=== PATIENT | male | born 1985 | race Hispanic/Latino ===

== ENCOUNTER 2017-06-03 15:11 | Inpatient (IN) | payer MEDICAID ==
--- NOTE | 2017-06-03 15:23 | ED PDOC ---
"Arrival/HPI - General Historian: Patient, EMS <Ketan Hsieh - Last Filed: 06/03/17 20:49> <Joaquina Solomon - Last Filed: 06/04/17 01:56> - General Time Seen by Provider: 06/03/17 15:14 - History of Present Illness Narrative History of Present Illness (Text): 06/03/17 15:22 31 y/o male, pmh including seizure/CVA, drug abuse and currently on subuxone, nkda, biba after the police call for the ambulance as the patient acting bizzare. Pt. went to visit his kids today and the kids didn't go to school, DYFS came to evalute the kid, PD was call, and found the patient at his kids house. DYFS and police found that the patient has bizzare behavior and told to come to the ER for psychiatric evaluation. Pt. stated that he did use the subuxone today, no nausea or vomiting, no homicidal or suicidal ideation, no auditory or visual hallucination, no change in vision, no medical or psychological complaints. (Ketan Hsieh) Past Medical History - Provider Review Nursing Documentation Reviewed: Yes - Infectious Disease Hx of Infectious Diseases: None - Tetanus Immunization Tetanus Immunization: Unknown - Past Medical History Past Medical History: No Previous - Cardiac Hx Cardiac Disorders: No - Pulmonary Hx Respiratory Disorders: No - Neurological Hx Neurological Disorder: Yes - HEENT Hx HEENT Disorder: No - Renal Hx Renal Disorder: No - Endocrine/Metabolic Hx Endocrine Disorders: No - Hematological/Oncological Hx Blood Disorders: No - Integumentary Hx Dermatological Disorder: No - Musculoskeletal/Rheumatological Hx Musculoskeletal Disorders: No - Gastrointestinal Hx Gastrointestinal Disorders: No - Genitourinary/Gynecological Hx Genitourinary Disorders: No - Psychiatric Hx Psychophysiologic Disorder: Yes Hx Substance Use: No - Past Surgical History Past Surgical History: Non-Contributing - Surgical History Hx Orthopedic Surgery: Yes (left hand) - Anesthesia Hx Anesthesia: Yes Hx Anesthesia Reactions: No Hx Malignant Hyperthermia: No - Suicidal Assessment Feels Threatened In Home Enviroment: No <Ketan Hsieh - Last Filed: 06/03/17 20:49> Family/Social History - Physician Review Nursing Documentation Reviewed: Yes Family/Social History: Unknown Family HX Smoking Status: Heavy Smoker > 10 Cigarettes Daily Hx Alcohol Use: No (quit 6 yrs ago) Hx Substance Use: No Hx Substance Use Treatment: No <Ketan Hsieh Q - Last Filed: 06/03/17 20:49> Allergies/Home Meds <Ketan Hsieh Q - Last Filed: 06/03/17 20:49> <Joaquina Solomon P - Last Filed: 06/04/17 01:56> Allergies/Adverse Reactions: Allergies No Known Allergies Allergy (Verified 06/03/17 15:43) Home Medications: Home Meds Medication Instructions Recorded Confirmed Alprazolam [Xanax] 2 mg PO QID 08/26/15 06/03/17 Buprenorphine HCl/Naloxone HCl 4 mg PO Q6 06/03/17 06/03/17 [Suboxone 4 mg-1 mg Sl Film] Review of Systems - Review of Systems Constitutional: absent: Fatigue, Fevers Eyes: absent: Vision Changes ENT: absent: Hearing Changes Respiratory: absent: SOB, Cough Cardiovascular: absent: Chest Pain Gastrointestinal: absent: Abdominal Pain, Nausea, Vomiting Musculoskeletal: absent: Arthralgias, Back Pain Skin: absent: Rash, Pruritis, Skin Lesions Neurological: absent: Headache, Dizziness Psychiatric: absent: Anxiety, Depression, Suicidal Ideation <Ketan Hsieh Q - Last Filed: 06/03/17 20:49> Physical Exam - Systems Exam Head: Present: Atraumatic, Normocephalic Pupils: Present: PERRL Extroacular Muscles: Present: EOMI Conjunctiva: Present: Normal Mouth: Present: Moist Mucous Membranes Neck: Present: Normal Range of Motion Respiratory/Chest: Present: Clear to Auscultation, Good Air Exchange. No: Respiratory Distress, Accessory Muscle Use Cardiovascular: Present: Regular Rate and Rhythm, Normal S1, S2. No: Murmurs Abdomen: Present: Normal Bowel Sounds. No: Tenderness, Distention, Peritoneal Signs Back: Present: Normal Inspection Upper Extremity: Present: Normal Inspection. No: Cyanosis, Edema Lower Extremity: Present: Normal Inspection. No: Edema Neurological: Present: GCS=15, Speech Normal, Motor Func Grossly Intact, Gait Normal, Memory Normal Skin: Present: Warm, Dry, Normal Color. No: Rashes Psychiatric: Present: Alert, Oriented x 3, Normal Insight, Normal Concentration <Ketan Hsieh Q - Last Filed: 06/03/17 20:49> Vital Signs Temp Pulse Resp BP Pulse Ox 06/04/17 01:34 91 H 18 133/79 96 06/03/17 15:25 98.5 F 89 16 155/73 H 98 Medical Decision Making - Lab Interpretations I have reviewed the lab results: Yes Interpretation: Abnormal lab values (wbc 14.4) - RAD Interpretation Principal Process Engineer: Radiologist - EKG Interpretation Interpreted by ED Physician: Yes Type: 12 lead EKG <Ketan Hsieh - Last Filed: 06/03/17 20:49> Re-evaluation Time: 01:55 Reassessment Condition: Re-examined, Improving,but remains with symptoms <Joaquina Solomon - Last Filed: 06/04/17 01:56> ED Course and Treatment: 06/03/17 15:35 -Labs/ua/uds -ekg -chest xray -PES paged and will come to evaluate the patient. -UA show -UDS show 06/03/17 17:39 -EKG: SR @ 81 BPM, no ST elevation or depression, no T wave inversion. -Chest xray show no active disease -Labs are non-significant except wbc 14.4 with no fever or chills, no discomfort , likely stress induced. Pt. admits taking suboxone and xanax today. -MAGDALENO Pacheco evaluated the patient, stated that the patient appear drowsy to her and will need to be reevaluated in 4 hours which will be around 21:40. 06/03/17 18:24 -MAGDALENO Pacheco came to evaluate the patient, pt. is non-compliant and refused to be screen. MAGDALENO Pacheco stated that the patient is not psychiatrically clear, need one on one, need to be screened by the [facility]. 06/03/17 20:58 -Case discussed and endorsed to the current PA Joaquina Solomon, he will follow up the patient as the patient still needs UA and drug screen from urine. [facility] MAGDALENO Pacheco is awared, [facility] awared but will require the UDS/UA. (Ketan Hsieh) 06/04/17 21:24 Receiving Sign Out: Patient signed out to me by Thong Hsieh PA-C. Pending UA and UDS. Patient is on restrained due to combative to staff. 06/04/17 00:10 I reexamined patient. Lungs are clear bilaterally. No wheezing no rhonchi or rales. Abdomen is nontender. However, there is guarding on the left side of the abdomen. Patient is awake, and he denies pain. UA demostrates Pyuria, and the possibility of urethritis, appendicitis, or pyelonephritis are present. I ordered further labs, including, blood culture, and venous gas panel. As well as CT scan of head, chest, and abdomen. 06/04/17 01:[address] Aguillon residential installer about CT finding which demonstrates enlarge appendix. I spoke with Kike resident care associate about the history, imaging result, as well as lab result, which suggest early appendicitis. He stated Dr. Emerson is house physician to be called. I spoke with Dr. Emerson, and reviewed labs, history, and imaging result which demonstrates enlarge appendix. with elevated wbc, and pyuria He agrees with admission. (Joaquina Solomon) - Lab Interpretations Lab Results: 06/03/17 15:50 06/03/17 15:50 Lab Results 06/04/17 00:46: pO2 43, VBG pH 7.33, VBG pCO2 56.0, VBG HCO3 29.5 H, VBG Total CO2 31.2 H, VBG O2 Sat (Calc) 85.5 H, VBG Base Excess 2.3 H, VBG Potassium 4.2, Glucose 100, Lactate 1.2, FiO2 21.0, Sodium 136.0, Chloride 100.0, Venous Blood Potassium 4.2 06/03/17 23:03: Urine Opiates Screen Positive H, Urine Methadone Screen Negative , Ur Barbiturates Screen Negative, Ur Phencyclidine Scrn Negative, Ur Amphetamines Screen Negative, U Benzodiazepines Scrn Positive H, U Oth Cocaine Metabols Negative, U Cannabinoids Screen Positive H 06/03/17 23:03: Urine Color Straw, Urine Appearance Sl cloudy, Urine pH 6.0, Ur Specific [place] >= 1.030, Urine Protein 30 H, Urine Glucose (UA) Negative, Urine Ketones Negative, Urine Blood Small H, Urine Nitrate Negative, Urine Bilirubin Small H, Urine Urobilinogen 1.0 H, Ur Leukocyte Esterase Trace H, Urine RBC 2 - 5, Urine WBC 25 - 30, Ur Epithelial Cells 0 - 2, Urine Bacteria Few, Fine Granular Casts 0 - 2 06/03/17 15:50: WBC 14.4 H D, RBC 5.45, Hgb 16.0, Hct 45.7, MCV 83.9, MCH 29.4, MCHC 35.0, RDW 13.8, Plt Count 178, MPV 10.2, Gran % 82.2 H, Lymph % (Auto) 12.6 L, [place] % (Auto) 5.1, Eos % (Auto) 0.0 L, Baso % (Auto) 0.1, Gran # 11.87 H , Lymph # 1.8, [place] # 0.7 H, Eos # 0.0, Baso # 0.01 06/03/17 15:50: Alcohol, Quantitative < 10 06/03/17 15:50: Salicylates < 1 L, Acetaminophen < 10.0 L 06/03/17 15:50: Sodium 139, Potassium 3.8, Chloride 99, Carbon Dioxide 24, Anion Gap 20, BUN 20, Creatinine 1.0, Est GFR ( Amer) > 60, Est GFR (Non- Af Amer) > 60, Random Glucose 117 H, Calcium 9.5, Total Bilirubin 1.2, AST 36, ALT 25, Alkaline Phosphatase 85, Total Protein 8.8 H, Albumin 5.1 H, Globulin 3.7, Albumin/Globulin Ratio 1.4 - RAD Interpretation Narrative RAD Interpretations (Text): 06/04/17 01:33 [facility] Final Radiology Report Call: [phone] assistance Online chat: [email or web address] Patient Name: FRANCIE JEREZ Institution Name: [place] [address] Study Type: CT HEAD WO FINDINGS: Limitations: Motion artifact - mild. Brain: No definite intracranial hemorrhage. No mass. No definite edema. Ventricles: No hydrocephalus. Bones/joints: No acute fracture. Soft tissues: Unremarkable. Sinuses: Few small retention cysts. Mastoid air cells: Minimal fluid within LEFT mastoid. Orbits: Unremarkable as visualized. IMPRESSION: 1. No definite acute intracranial abnormality. 2. Incidental/non-acute findings are described above. Thank you for allowing us to participate in the care of your patient. Dictated and Authenticated by: Nick Caceres MD 06/04/2017 1:29 AM Eastern Time ([place] & [place]) 06/04/17 01:43 [facility] Final Radiology Report Call: [phone] assistance Online chat: [email or web address] Patient Name: FRANCIE JEREZ Institution Name: [facility] [place] [id number] Study Type: CT ABDOMEN/PELVIS WOCT CHEST WO FINDINGS: Limitations: Lack of intravenous contrast. Motion artifact - mild. Lungs: Mild atelectasis. No consolidation. Pleural space: No pneumothorax. No significant effusion. Heart: No cardiomegaly. No significant pericardial effusion. Bones/joints: No acute fracture. Soft tissues: Unremarkable. Vasculature: Unremarkable. No aneurysm. Lymph nodes: No pathologically enlarged lymph nodes. IMPRESSION: 1. No acute findings. EXAM: CT Abdomen and Pelvis Without Intravenous Contrast FRANCIE JEREZ | Final Radiology Report FINDINGS: Limitations: Motion artifact - mild. Lower thorax: No acute findings. ABDOMEN: Liver: Unremarkable. Gallbladder and bile ducts: No calcified stones. No ductal dilation. Pancreas: Unremarkable. No ductal dilation. Spleen: No splenomegaly. Adrenals: No mass. Kidneys and ureters: No renal calculi. No hydronephrosis. Stomach and bowel: No definite mural thickening. No obstruction. Appendix: Borderline enlarged appendix, 6-7 mm in diameter. No associated inflammatory stranding. PELVIS: Bladder: Unremarkable. No stones. Reproductive: Unremarkable as visualized. ABDOMEN and PELVIS: Intraperitoneal space: No significant fluid collection. No free air. Bones/joints: No acute fracture. Soft tissues: Unremarkable. Vasculature: Unremarkable. No aneurysm. Lymph nodes: No pathologically enlarged lymph nodes. IMPRESSION: 1. Borderline enlarged appendix. No inflammation. Clinical correlation is needed. Thank you for allowing us to participate in the care of your patient. Dictated and Authenticated by: Nick Caceres MD 06/04/2017 1:35 AM Eastern Time ([place] & [place]) (Joaquina Solomon) Radiology Orders: 06/03/17 15:43 CHEST PORTABLE [RAD] Stat 06/04/17 00:15 CHEST,ABDOMEN, PELVIS W/O CONT [CT] Stat HEAD W/O CONTRAST [CT] Stat HISTORY: medical clearance COMPARISON: No prior. FINDINGS: LUNGS: No active pulmonary disease. PLEURA: No significant pleural effusion identified, no pneumothorax apparent. CARDIOVASCULAR: Normal. OSSEOUS STRUCTURES: No significant abnormalities. VISUALIZED UPPER ABDOMEN: Normal. OTHER FINDINGS: None. IMPRESSION: No active disease. (Ketan Hsieh) - EKG Interpretation EKG Interpretation (Text): 06/03/17 16:36 -EKG: SR @ 81 BPM, no ST elevation or depression, no T wave inversion. (Ketan Hsieh) - Medication Orders Current Medication Orders: Azithromycin 1,000 mg/ Sodium (Chloride) 250 mls @ 166.667 mls/hr IVPB STAT STA Stop: 06/04/17 02:04 Discontinued Medications Ceftriaxone Sodium (Rocephin 1 Gram Ivpb) 1 gm in 100 mls @ 200 mls/hr IVPB STAT STA PRN Reason: Protocol Stop: 06/04/17 00:45 Last Admin: 06/04/17 01:19 Dose: 200 mls/hr eMAR Start Stop Document 06/04/17 01:19 SS (Rec: 06/04/17 01:19 SS [id number]) Intravenous Solution Start Date 06/04/17 Start Time 01:19 Sodium Chloride (Sodium Chloride 0.9%) 1,000 mls @ 999 mls/hr IV .Q1H1M STA Stop: 06/04/17 01:23 Last Admin: 06/04/17 01:19 Dose: 999 mls/hr eMAR Start Stop Document 06/04/17 01:19 SS (Rec: 06/04/17 01:19 SS [id number]) Intravenous Solution Start Date 06/04/17 Start Time 01:19 Lorazepam (Ativan) 1 mg IM ONCE ONE PRN Reason: Protocol Stop: 06/03/17 21:21 Last Admin: 06/03/17 21:41 Dose: 1 mg IM Administration Charges Document 06/03/17 21:41 SS (Rec: 06/03/17 21:41 SS [id number]) Injection Site MAR Injection Site Right Deltoid Charges for Administration # of IM Administrations 1 - PA / MANAGER BAKERY / Resident Statement MD/DO has reviewed & agrees with the documentation as recorded. <Ketan Hsieh - Last Filed: 06/03/17 20:49> Disposition/Present on Arrival - Present on Arrival Any Indicators Present on Arrival: No History of DVT/PE: No History of Uncontrolled Diabetes: No Urinary Catheter: No History of Decub. Ulcer: No History Surgical Site Infection Following: None - Disposition Have Diagnosis and Disposition been Completed?: Yes Disposition Time: 20:51 <Ketan Hsieh - Last Filed: 06/03/17 20:49> - Present on Arrival Any Indicators Present on Arrival: No History of DVT/PE: No History of Uncontrolled Diabetes: No Urinary Catheter: No History of Decub. Ulcer: No - Disposition Have Diagnosis and Disposition been Completed?: Yes Patient Plan: Admission <Joaquina Solomon - Last Filed: 06/04/17 01:56> - Disposition Diagnosis: Drug abuse, Appendicitis Disposition: HOSPITALIZED Patient Problems: Current Active Problems Problem Status Onset Drug abuse Acute Condition: STABLE Referrals: PCP,NO [Primary Care Provider] - Follow up with primary"
[2017-06-03 15:43] VITALS: BMI 30.9
[2017-06-03 16:17] LABS: BASO # 0.01 K/mm3 (0.0-2.0); BASO % 0.1 % (0.0-3.0); GRAN # 11.87 (1.4-6.5); GRAN % 82.2 % (50.0-68.0); HEMATOCRIT 45.7 % (42.0-52.0); LYMPH # 1.8 (1.2-3.4); LYMPH % 12.6 % (22.0-35.0); MEAN CELL VOLUME 83.9 fl (80.0-105.0); MEAN CORPUSCULAR HEMOGLOBIN 29.4 pg (25.0-35.0); MEAN PLATELET VOLUME 10.2 fl (7.0-11.0); MONO # 0.7 (0.1-0.6); MONO % 5.1 % (1.0-6.0); RED CELL DISTRIBUTION WIDTH 13.8 % (11.5-14.5); WHITE BLOOD COUNT 14.4 10^3/ul (4.5-11.0)
[2017-06-03 16:28] LABS: ALB/GLOB RATIO 1.4 (1.1-1.8); ALKALINE PHOSPHATASE 85 U/L (38-126); ALT/SGPT 25 U/L (7-56); AST/SGOT 36 U/L (17-59); BILIRUBIN,TOTAL 1.2 mg/dL (0.2-1.3); BLOOD UREA NITROGEN 20 mg/dL (7-21); CALCIUM 9.5 mg/dL (8.4-10.5); CARBON DIOXIDE 24 mmol/L (21-33); CHLORIDE 99 mmol/L (98-107); GFR AFRICAN-AMERICAN > 60; GLUCOSE,RANDOM 117 mg/dL (70-110); POTASSIUM 3.8 mmol/L (3.6-5.0); SODIUM 139 mmol/L (132-148); TOTAL PROTEIN 8.8 g/dL (5.8-8.3)
--- NOTE | 2017-06-03 16:58 | RAD ---
HISTORY: medical clearance COMPARISON: No prior. FINDINGS: LUNGS: No active pulmonary disease. PLEURA: No significant pleural effusion identified, no pneumothorax apparent. CARDIOVASCULAR: Normal. OSSEOUS STRUCTURES: No significant abnormalities. VISUALIZED UPPER ABDOMEN: Normal. OTHER FINDINGS: None. IMPRESSION: No active disease.
--- NOTE | 2017-06-03 19:05 | CARD ---
APPROVED REPORT EKG Measurement Heart [id number] <Conclusion> Sinus rhythm with marked sinus arrhythmia Otherwise normal ECG
[2017-06-03 23:14] LABS: URINE BILIRUBIN SMALL (NEGATIVE); URINE BLOOD SMALL (NEGATIVE); URINE GLUCOSE (UA) NEGATIVE (NEGATIVE); URINE KETONE NEGATIVE (NEGATIVE); URINE LEUKOCYTE ESTERASE TRACE Leu/uL (NEGATIVE); URINE PROTEIN 30 mg/dL (<30 mg/dL)
[2017-06-03 23:17] LABS: URINE APPEARANCE SL CLOUDY (CLEAR); URINE COLOR STRAW (YELLOW)
[2017-06-03 23:24] LABS: URINE EPITHELIAL CELLS 0 - 2 /hpf (0-5); URINE WBC 25 - 30 /hpf (0-6)
[2017-06-03 23:25] LABS: URINE BACTERIA FEW (NEG)
[2017-06-04] MEDS ORDERED: cefTRIAXone 1 gm 1 GM/100 ML BAG IVPB STA (00:16)
[2017-06-04] MEDS ORDERED: Sodium Chloride 0.9% 1,000 ML IV STA (00:23)
[2017-06-04 01:00] LABS: VENOUS BLOOD GAS BASE EXCESS 2.3 mmol/L (0.0-2.0); VENOUS BLOOD PH 7.33 (7.32-7.43)
--- NOTE | 2017-06-04 01:29 | CT ---
EXAM: CT Head Without Intravenous Contrast CLINICAL HISTORY: 31 years old, male; Signs and symptoms; Altered mental status/memory loss; Additional info: AMS TECHNIQUE: Axial computed tomography images of the head/brain without intravenous contrast. All CT scans at this facility use one or more dose reduction techniques, viz.: automated exposure control; ma/kV adjustment per patient size (including targeted exams where dose is matched to indication; i.e. head); or iterative reconstruction technique. COMPARISON: CT - HEAD W/O CONTRAST 12/05/2015 12:33:02 AM FINDINGS: Limitations: Motion artifact - mild. Brain: No definite intracranial hemorrhage. No mass. No definite edema. Ventricles: No hydrocephalus. Bones/joints: No acute fracture. Soft tissues: Unremarkable. Sinuses: Few small retention cysts. Mastoid air cells: Minimal fluid within LEFT mastoid. Orbits: Unremarkable as visualized. IMPRESSION: 1. No definite acute intracranial abnormality. 2. Incidental/non-acute findings are described above.
--- NOTE | 2017-06-04 01:36 | CT ---
EXAM: CT Chest Without Intravenous Contrast CLINICAL HISTORY: 31 years old, male; Signs and symptoms; Other: Pyuria; Cough; Symptoms not specified; Additional info: Leukocytosis, pyuria TECHNIQUE: Axial computed tomography images of the chest without intravenous contrast. All CT scans at this facility use one or more dose reduction techniques, viz.: automated exposure control; ma/kV adjustment per patient size (including targeted exams where dose is matched to indication; i.e. head); or iterative reconstruction technique. Coronal and sagittal reformatted images were created and reviewed. COMPARISON: No relevant prior studies available. FINDINGS: Limitations: Lack of intravenous contrast. Motion artifact - mild. Lungs: Mild atelectasis. No consolidation. Pleural space: No pneumothorax. No significant effusion. Heart: No cardiomegaly. No significant pericardial effusion. Bones/joints: No acute fracture. Soft tissues: Unremarkable. Vasculature: Unremarkable. No aneurysm. Lymph nodes: No pathologically enlarged lymph nodes. IMPRESSION: 1.No acute findings. EXAM: CT Abdomen and Pelvis Without Intravenous Contrast CLINICAL HISTORY: 31 years old, male; Signs and symptoms; Other: Pyuria; Cough; Symptoms not specified; Additional info: Leukocytosis, pyuria TECHNIQUE: Axial computed tomography images of the abdomen and pelvis without intravenous contrast. All CT scans at this facility use one or more dose reduction techniques, viz.: automated exposure control; ma/kV adjustment per patient size (including targeted exams where dose is matched to indication; i.e. head); or iterative reconstruction technique. Coronal and sagittal reformatted images were created and reviewed. COMPARISON: No relevant prior studies available. FINDINGS: Limitations: Motion artifact - mild. Lower thorax: No acute findings. ABDOMEN: Liver: Unremarkable. Gallbladder and bile ducts: No calcified stones. No ductal dilation. Pancreas: Unremarkable. No ductal dilation. Spleen: No splenomegaly. Adrenals: No mass. Kidneys and ureters: No renal calculi. No hydronephrosis. Stomach and bowel: No definite mural thickening. No obstruction. Appendix: Borderline enlarged appendix, 6-7 mm in diameter. No associated inflammatory stranding. PELVIS: Bladder: Unremarkable. No stones. Reproductive: Unremarkable as visualized. ABDOMEN and PELVIS: Intraperitoneal space: No significant fluid collection. No free air. Bones/joints: No acute fracture. Soft tissues: Unremarkable. Vasculature: Unremarkable. No aneurysm. Lymph nodes: No pathologically enlarged lymph nodes. IMPRESSION: 1. Borderline enlarged appendix. No inflammation. Clinical correlation is needed.
--- NOTE | 2017-06-04 01:57 | CP.PCM.CON ---
<Tay Rao - Last Filed: 06/04/17 02:54> History of Present Illness - History of Present Illness History of Present Illness: Surgery Consult note. Dr. Ricci. History obtained from chart review. Patient is a poor historian due to psych hx vs. current AMS. 31yo M with PMHx of opiate dependence on suboxone, Anxiety, ?CVA/TIA who was brought into the ED by EMS for AMS. As per reports, patient was combative and delusional upon arrival and observed for multiple hours before some minimal improvement in his mental status. At this time, patient is more calm. Patient denies any complaints but exhibits flight of ideas and does not respond appropriately to most questions. He is not clear in his thought process. Upon multiple attempts and redirection, patient does report some abdominal pain located in the RLQ. No further information about quality, duration, or any other related symptoms are able to be obtained at this time. In the ED, CT was obtained which showed enlarged appendix. General surgery was consulted. PMHx: Opioid dependence on suboxone, Anxiety, Unknown psych disorder, questionable CVA/TIA history PSHx: Unobtainable NKDA as per chart review Review of Systems - Review of Systems Systems not reviewed;Unavailable: Altered Mental Status, Uncooperative, Psychotic - Gastrointestinal Gastrointestinal: Abdominal Pain Past Patient History - Infectious Disease Hx of Infectious Diseases: None - Tetanus Immunizations Tetanus Immunization: Unknown - Past Social History Smoking Status: Heavy Smoker > 10 Cigarettes Daily - CARDIAC Hx Cardiac Disorders: No - PULMONARY Hx Respiratory Disorders: No - NEUROLOGICAL Hx Neurological Disorder: Yes - HEENT Hx HEENT Problems: No - RENAL Hx Chronic Kidney Disease: No - ENDOCRINE/METABOLIC Hx Endocrine Disorders: No - HEMATOLOGICAL/ONCOLOGICAL Hx Blood Disorders: No - INTEGUMENTARY Hx Dermatological Problems: No - MUSCULOSKELETAL/RHEUMATOLOGICAL Hx Musculoskeletal Disorders: No - GASTROINTESTINAL Hx Gastrointestinal Disorders: No - GENITOURINARY/GYNECOLOGICAL Hx Genitourinary Disorders: No - PSYCHIATRIC Hx Psychophysiologic Disorder: Yes Hx Substance Use: No - SURGICAL HISTORY Hx Orthopedic Surgery: Yes (left hand) - ANESTHESIA Hx Anesthesia: Yes Hx Anesthesia Reactions: No Hx Malignant Hyperthermia: No Meds Allergies/Adverse Reactions: Allergies Allergy/AdvReac Type Severity Reaction Status Date / Time No Known Allergies Allergy Verified 06/03/17 15:43 - Medications Medications: Current Medications Azithromycin 1,000 mg/ Sodium (Chloride) 250 mls @ 166.667 mls/hr IVPB STAT STA Stop: 06/04/17 02:04 Physical Exam - Constitutional Appears: No Acute Distress, Unkempt - Head Exam Head Exam: ATRAUMATIC, NORMAL INSPECTION, NORMOCEPHALIC - ENT Exam ENT Exam: Mucous Membranes Moist - Respiratory Exam Respiratory Exam: NORMAL BREATHING PATTERN. absent: Respiratory Distress - Cardiovascular Exam Cardiovascular Exam: RRR, +S1, +S2. absent: JVD - GI/Abdominal Exam Additional comments: Does exhibit voluntary guarding. Mild RLQ abdominal tenderness. Soft, non- distended. No obturator sign. No psoas sign. no Smith's sign. - Extremities Exam Extremities exam: Positive for: normal inspection. Negative for: calf tenderness - Neurological Exam Neurological exam: Alert - Psychiatric Exam Additional comments: Flight of ideas. Does not respond to questioning appropriately - Skin Skin Exam: Dry, Intact, Warm Results - Vital Signs Recent Vital Signs: Last Vital Signs Temp 98.5 F 06/03/17 15:25 Pulse 91 H 06/04/17 01:34 Resp 18 06/04/17 01:34 BP 133/79 06/04/17 01:34 Pulse Ox 96 06/04/17 01:34 - Labs Result Diagrams: 06/03/17 15:50 06/03/17 15:50 Labs: Laboratory Results - last 24 hr 06/03/17 06/03/17 06/03/17 15:50 15:50 15:50 WBC RBC Hgb Hct MCV MCH MCHC RDW Plt Count MPV Gran % Lymph % (Auto) [place] % (Auto) Eos % (Auto) Baso % (Auto) Gran # Lymph # [place] # Eos # Baso # pO2 VBG pH VBG pCO2 VBG HCO3 VBG Total CO2 VBG O2 Sat (Calc) VBG Base Excess VBG Potassium Glucose Lactate FiO2 Sodium 139 Potassium 3.8 Chloride 99 Carbon Dioxide 24 Anion Gap 20 BUN 20 Creatinine 1.0 Est GFR ( Amer) > 60 Est GFR (Non-Af Amer) > 60 Random Glucose 117 H Calcium 9.5 Total Bilirubin 1.2 AST 36 ALT 25 Alkaline Phosphatase 85 Total Protein 8.8 H Albumin 5.1 H Globulin 3.7 Albumin/Globulin Ratio 1.4 Venous Blood Potassium Urine Color Urine Appearance Urine pH Ur Specific [place] Urine Protein Urine Glucose (UA) Urine Ketones Urine Blood Urine Nitrate Urine Bilirubin Urine Urobilinogen Ur Leukocyte Esterase Urine RBC Urine WBC Ur Epithelial Cells Urine Bacteria Fine Granular Casts Salicylates < 1 L Urine Opiates Screen Urine Methadone Screen Acetaminophen < 10.0 L Ur Barbiturates Screen Ur Phencyclidine Scrn Ur Amphetamines Screen U Benzodiazepines Scrn U Oth Cocaine Metabols U Cannabinoids Screen Alcohol, Quantitative < 10 06/03/17 06/03/17 06/03/17 15:50 23:03 23:03 WBC 14.4 H D RBC 5.45 Hgb 16.0 Hct 45.7 MCV 83.9 MCH 29.4 MCHC 35.0 RDW 13.8 Plt Count 178 MPV 10.2 Gran % 82.2 H Lymph % (Auto) 12.6 L [place] % (Auto) 5.1 Eos % (Auto) 0.0 L Baso % (Auto) 0.1 Gran # 11.87 H Lymph # 1.8 [place] # 0.7 H Eos # 0.0 Baso # 0.01 pO2 VBG pH VBG pCO2 VBG HCO3 VBG Total CO2 VBG O2 Sat (Calc) VBG Base Excess VBG Potassium Glucose Lactate FiO2 Sodium Potassium Chloride Carbon Dioxide Anion Gap BUN Creatinine Est GFR ( Amer) Est GFR (Non-Af Amer) Random Glucose Calcium Total Bilirubin AST ALT Alkaline Phosphatase Total Protein Albumin Globulin Albumin/Globulin Ratio Venous Blood Potassium Urine Color Straw Urine Appearance Sl cloudy Urine pH 6.0 Ur Specific [place] >= 1.030 Urine Protein 30 H Urine Glucose (UA) Negative Urine Ketones Negative Urine Blood Small H Urine Nitrate Negative Urine Bilirubin Small H Urine Urobilinogen 1.0 H Ur Leukocyte Esterase Trace H Urine RBC 2 - 5 Urine WBC 25 - 30 Ur Epithelial Cells 0 - 2 Urine Bacteria Few Fine Granular Casts 0 - 2 Salicylates Urine Opiates Screen Positive H Urine Methadone Screen Negative Acetaminophen Ur Barbiturates Screen Negative Ur Phencyclidine Scrn Negative Ur Amphetamines Screen Negative U Benzodiazepines Scrn Positive H U Oth Cocaine Metabols Negative U Cannabinoids Screen Positive H Alcohol, Quantitative 06/04/17 00:46 WBC RBC Hgb Hct MCV MCH MCHC RDW Plt Count MPV Gran % Lymph % (Auto) [place] % (Auto) Eos % (Auto) Baso % (Auto) Gran # Lymph # [place] # Eos # Baso # pO2 43 VBG pH 7.33 VBG pCO2 56.0 VBG HCO3 29.5 H VBG Total CO2 31.2 H VBG O2 Sat (Calc) 85.5 H VBG Base Excess 2.3 H VBG Potassium 4.2 Glucose 100 Lactate 1.2 FiO2 21.0 Sodium 136.0 Potassium Chloride 100.0 Carbon Dioxide Anion Gap BUN Creatinine Est GFR ( Amer) Est GFR (Non-Af Amer) Random Glucose Calcium Total Bilirubin AST ALT Alkaline Phosphatase Total Protein Albumin Globulin Albumin/Globulin Ratio Venous Blood Potassium 4.2 Urine Color Urine Appearance Urine pH Ur Specific [place] Urine Protein Urine Glucose (UA) Urine Ketones Urine Blood Urine Nitrate Urine Bilirubin Urine Urobilinogen Ur Leukocyte Esterase Urine RBC Urine WBC Ur Epithelial Cells Urine Bacteria Fine Granular Casts Salicylates Urine Opiates Screen Urine Methadone Screen Acetaminophen Ur Barbiturates Screen Ur Phencyclidine Scrn Ur Amphetamines Screen U Benzodiazepines Scrn U Oth Cocaine Metabols U Cannabinoids Screen Alcohol, Quantitative Assessment & Plan - Assessment and Plan (Free Text) Assessment: 31yo M with AMS and psychotic disorder found to have enlarged appendix with leukocytosis and pyuria. - CT Abd with 6-7mm enlarged appendix, no periappendiceal inflammation or fat stranding noted - NPO for now - IVF - IV Antibiotics - Will follow patient's clinical status and make further recommendations - f/u AM labs Further recs as per Dr. Keiry Rao PGY1 surgery pager: [phone] <Malick Pradhan - Last Filed: 06/04/17 10:24> Meds - Medications Medications: Current Medications Metronidazole (Flagyl) 500 mg in 100 mls @ 100 mls/hr IVPB Q8 [facility] PRN Reason: Protocol Last Admin: 06/04/17 06:11 Dose: 100 mls/hr Ceftriaxone Sodium (Rocephin 1 Gram Ivpb) 1 gm in 100 mls @ 100 mls/hr IVPB DAILY [facility] PRN Reason: Protocol Sodium Chloride (Sodium Chloride 0.9%) 1,000 mls @ 125 mls/hr IV .Q8H [facility] Last Admin: 06/04/17 03:23 Dose: 125 mls/hr Ondansetron HCl (Zofran Inj) 4 mg IVP Q6H PRN PRN Reason: Nausea/Vomiting Pantoprazole Sodium (Protonix Inj) 40 mg IVP DAILY SRI Results - Vital Signs Recent Vital Signs: Last Vital Signs Temp 98.5 F 06/04/17 07:29 Pulse 95 H 06/04/17 07:29 Resp 20 06/04/17 07:29 BP 152/95 H 06/04/17 07:29 Pulse Ox 97 06/04/17 07:29 - Labs Result Diagrams: 06/04/17 06:40 06/04/17 06:40 Labs: Laboratory Results - last 24 hr 06/04/17 06/04/17 06/04/17 06:40 06:40 06:40 WBC 9.0 D RBC 4.98 Hgb 14.1 Hct 42.1 MCV 84.5 MCH 28.3 MCHC 33.5 RDW 14.0 Plt Count 157 MPV 10.5 Gran % 68.6 H Lymph % (Auto) 22.8 [place] % (Auto) 8.2 H Eos % (Auto) 0.3 L Baso % (Auto) 0.1 Gran # 6.14 Lymph # 2.0 [place] # 0.7 H Eos # 0.0 Baso # 0.01 PT 12.4 H INR 1.15 H APTT 28.7 Sodium Potassium Chloride Carbon Dioxide Anion Gap BUN Creatinine Est GFR ( Amer) Est GFR (Non-Af Amer) Random Glucose Calcium Phosphorus Magnesium Total Bilirubin AST ALT Alkaline Phosphatase Total Protein Albumin Globulin Albumin/Globulin Ratio TSH 3rd Generation 1.19 06/04/17 06:40 WBC RBC Hgb Hct MCV MCH MCHC RDW Plt Count MPV Gran % Lymph % (Auto) [place] % (Auto) Eos % (Auto) Baso % (Auto) Gran # Lymph # [place] # Eos # Baso # PT INR APTT Sodium 142 Potassium 4.0 Chloride 104 Carbon Dioxide 27 Anion Gap 15 BUN 19 Creatinine 0.9 Est GFR ( Amer) > 60 Est GFR (Non-Af Amer) > 60 Random Glucose 97 Calcium 8.7 Phosphorus 2.8 Magnesium 2.3 H Total Bilirubin 1.3 AST 37 ALT 24 Alkaline Phosphatase 74 Total Protein 7.4 Albumin 4.4 Globulin 3.0 Albumin/Globulin Ratio 1.5 TSH 3rd Generation Assessment & Plan - Assessment and Plan (Free Text) Assessment: R/O appendicitis Leukocytosis likely 2/2 UTI. Unable to assess for clinical signs of appendicitis because of AMS 2/2 intoxication. -Treat UTI -Serial abd exam -Advance diet as tolerated. -We will follow closely DW Dr. Ricci
[2017-06-04] MEDS ORDERED: Sodium Chloride 0.9% 1,000 ML IV SCH (02:30)
--- NOTE | 2017-06-04 02:35 | CP.PCM.HP ---
<LAKHWINDER ABURTO - Last Filed: 06/04/17 02:36> History of Present Illness - History of Present Illness History of Present Illness: CC: AMS Pt is a 31 yo male with PMH of percocet dependence on suboxone, anxiety, seizure and stroke [place] [facility] [place] found patient to be acting bizzare. Pt was visiting his kids earlier today when DYFS came for evaluation. At that point the police department was called. The patient was found by DYFS and the police to be demonstrating delirious behavior and was brought to the hospital for evaluation. Pt states that he took his Xanax and Suboxone this AM and takes it on a regular basis. The patient denied any CP, SOB, n/v/d, abdominal pain, chills, fever, visual/auditory hallucinations, homicidal/ suicidal ideations, dysuria, polyuria, TOVAR, or dizziness. PMH: opioid dependence on suboxone, anxiety, seizure, stroke Surg: Right hand cyst surgery, left hand ganglion cyst surgery, dental extration FHx: Non-contributory All: NKDA SH: Denied tobacco, EtOH, and illicit drug use; Lives at home with mother Meds: reviewed as per MAR Present on Admission - Present on Admission Any Indicators Present on Admission: No Review of Systems - Review of Systems Review of Systems: 12 point ROS reviewed and negative other than what is stated in HPI. Past Patient History - Infectious Disease Hx of Infectious Diseases: None - Tetanus Immunizations Tetanus Immunization: Unknown - Past Social History Smoking Status: Heavy Smoker > 10 Cigarettes Daily - CARDIAC Hx Cardiac Disorders: No - PULMONARY Hx Respiratory Disorders: No - NEUROLOGICAL Hx Neurological Disorder: Yes - HEENT Hx HEENT Problems: No - RENAL Hx Chronic Kidney Disease: No - ENDOCRINE/METABOLIC Hx Endocrine Disorders: No - HEMATOLOGICAL/ONCOLOGICAL Hx Blood Disorders: No - INTEGUMENTARY Hx Dermatological Problems: No - MUSCULOSKELETAL/RHEUMATOLOGICAL Hx Musculoskeletal Disorders: No - GASTROINTESTINAL Hx Gastrointestinal Disorders: No - GENITOURINARY/GYNECOLOGICAL Hx Genitourinary Disorders: No - PSYCHIATRIC Hx Psychophysiologic Disorder: Yes Hx Substance Use: No - SURGICAL HISTORY Hx Orthopedic Surgery: Yes (left hand) - ANESTHESIA Hx Anesthesia: Yes Hx Anesthesia Reactions: No Hx Malignant Hyperthermia: No Meds Allergies/Adverse Reactions: Allergies Allergy/AdvReac Type Severity Reaction Status Date / Time No Known Allergies Allergy Verified 06/03/17 15:43 Physical Exam - Constitutional Appears: No Acute Distress, Confused - Head Exam Head Exam: ATRAUMATIC, NORMOCEPHALIC - Eye Exam Eye Exam: EOMI, PERRL - ENT Exam ENT Exam: Mucous Membranes Dry - Neck Exam Neck exam: Positive for: Full Rom. Negative for: Lymphadenopathy, Tenderness, Thyromegaly - Respiratory Exam Respiratory Exam: Clear to Auscultation Bilateral. absent: Rales, Rhonchi, Wheezes - Cardiovascular Exam Cardiovascular Exam: RRR, +S1, +S2. absent: Gallop, Rubs, Systolic Murmur - GI/Abdominal Exam GI & Abdominal Exam: Soft. absent: Distended, Guarding, Organomegaly, Rebound, Tenderness Additional comments: Negative McBurney's Point, Negative Psoas Sign, Negative Obturator sign, Negative Heel jar sign. No rebounding, guarding, non-peritoneal. - Extremities Exam Extremities exam: Positive for: normal inspection - Neurological Exam Neurological exam: Alert Additional comments: Oriented to person, but not place or time. - Psychiatric Exam Additional comments: Answers some questions appropriately, easily distracted, confused. Not agitated. - Skin Skin Exam: Diaphoretic, Intact, Normal Color, Warm Results - Vital Signs Recent Vital Signs: Last Vital Signs Temp 98.5 F 06/03/17 15:25 Pulse 91 H 06/04/17 01:34 Resp 18 06/04/17 01:34 BP 133/79 06/04/17 01:34 Pulse Ox 96 06/04/17 01:34 - Labs Result Diagrams: 06/03/17 15:50 06/03/17 15:50 Assessment & Plan - Assessment and Plan (Free Text) Assessment: 31 yo M with PMH of opiod dependence on suboxone, anxiety, seizure, and stroke presents will be admitted for evaluation and treatment for acute delirium due to possible UTI vs other infectious source and enlarged appendix found on CT. Plan: 1. AMS/Acute Delirium - UTI vs. Drug vs. Psychiatric vs. Endocrine etiology - UDS positive for opiates, benzodiazepines, and cannabinoids - Head CT, CXR negative - EKG negative - Psych consulted - F/u TSH, B12 - Placed on 1:1 observation with fall risk precaution - Neurochecks q4 2. UTI - UA showed small blood, small bilirubin, and trace leukocyte esterase - WBC 14.4 - F/u procalcitonin, blood, urine cultures - Ceftriaxone and Flagyl 3. Potential Appendicitis - Chest/abdomen/pelvis CT showed borderline enlarged appendix with fecalith - Surgery consulted - Ceftriaxone and Flagyl - NS at 125 - NPO 4. H/O Anxiety - Hold Xanax 5. H/O Opioid Dependence - Hold Suboxone GI/DVT PPx - Protonix - SCDs Pt seen and discussed in detail with Dr. Emerson. Dhaval Aburto, PGY1 <Idania CASTELLANO,Ambrocio - Last Filed: 06/04/17 07:20> Results - Vital Signs Recent Vital Signs: Last Vital Signs Temp 98.5 F 06/03/17 15:25 Pulse 91 H 06/04/17 01:34 Resp 18 06/04/17 01:34 BP 133/79 06/04/17 01:34 Pulse Ox 96 06/04/17 01:34 - Labs Result Diagrams: 06/04/17 06:40 06/03/17 15:50 Labs: Laboratory Results - last 24 hr 06/04/17 06/04/17 06:40 06:40 WBC 9.0 D RBC 4.98 Hgb 14.1 Hct 42.1 MCV 84.5 MCH 28.3 MCHC 33.5 RDW 14.0 Plt Count 157 MPV 10.5 Gran % 68.6 H Lymph % (Auto) 22.8 [place] % (Auto) 8.2 H Eos % (Auto) 0.3 L Baso % (Auto) 0.1 Gran # 6.14 Lymph # 2.0 [place] # 0.7 H Eos # 0.0 Baso # 0.01 PT 12.4 H INR 1.15 H APTT 28.7 Attending/Attestation - Attestation I have personally seen and examined this patient.: Yes I have fully participated in the care of the patient.: Yes I have reviewed all pertinent clinical information: Yes Notes (Text): -I agree with the above H&P completed by the resident physician.
[2017-06-04] MEDS: Sodium Chloride 0.9% 1,000 ML IV SCH ×3 (03:23→20:31)
[2017-06-04] MEDS: metroNIDAZOLE IV 500 mg/100 ml 500 MG/100 ML BAG IVPB SCH ×3 (06:11→21:08)
[2017-06-04 07:07] LABS: BASO # 0.01 K/mm3 (0.0-2.0); BASO % 0.1 % (0.0-3.0); EOS % 0.3 % (1.5-5.0); GRAN # 6.14 (1.4-6.5); GRAN % 68.6 % (50.0-68.0); HEMATOCRIT 42.1 % (42.0-52.0); LYMPH % 22.8 % (22.0-35.0); MEAN CELL VOLUME 84.5 fl (80.0-105.0); MEAN CORPUSCULAR HEMOGLOBIN 28.3 pg (25.0-35.0); MEAN CORPUSCULAR HGB CONC 33.5 g/dl (31.0-37.0); MEAN PLATELET VOLUME 10.5 fl (7.0-11.0); MONO # 0.7 (0.1-0.6); MONO % 8.2 % (1.0-6.0)
[2017-06-04 07:14] LABS: INR 1.15 (0.93-1.08); PARTIAL THROMBOPLASTIN TIME 28.7 Seconds (23.7-30.8)
[2017-06-04 07:53] LABS: ALB/GLOB RATIO 1.5 (1.1-1.8); ALKALINE PHOSPHATASE 74 U/L (38-126); ALT/SGPT 24 U/L (7-56); AST/SGOT 37 U/L (17-59); BILIRUBIN,TOTAL 1.3 mg/dL (0.2-1.3); BLOOD UREA NITROGEN 19 mg/dL (7-21); CALCIUM 8.7 mg/dL (8.4-10.5); CARBON DIOXIDE 27 mmol/L (21-33); CHLORIDE 104 mmol/L (98-107); GFR AFRICAN-AMERICAN > 60; GLUCOSE,RANDOM 97 mg/dL (70-110); MAGNESIUM 2.3 mg/dL (1.7-2.2); PHOSPHOROUS 2.8 mg/dL (2.5-4.5); SODIUM 142 mmol/L (132-148); TOTAL PROTEIN 7.4 g/dL (5.8-8.3)
[2017-06-04] MEDS ORDERED: cefTRIAXone 1 gm 1 GM/100 ML BAG IVPB SCH (10:00)
[2017-06-04] MEDS ORDERED: Multivitamin (MVI) 10 ML, Thiamine 100 MG, Folic Acid 1 MG in Dextrose 5% In Water 1,00... IV ONE (11:09)
--- NOTE | 2017-06-04 11:53 | PCM.RRT ---
<Lazaro Gerardo - Last Filed: 06/04/17 14:30> STOGY MAKER Nurse Assessment - Situation Date: 06/04/17 Time STOGY MAKER was called: 11:01 STOGY MAKER Responder Arrival Time: 11:01 STOGY MAKER Location:: [address] [place] [address] Room Number: 562 STOGY MAKER Reason for Call: Change in Mental Status STOGY MAKER Called By: RN - IV IV Inserted during STOGY MAKER?: No - Respiratory Oxygen Delivery Method: Room Air Received Nebulizer Treatments:: No Was the Patient Ventilated with Bag/Mask 100% O2?: No Secretions Suctioned?: No Was the Patient Intubated?: No Was the Patient Placed on a Ventilator?: No - Medication Medications Administered During STOGY MAKER: ativan 2mg. librium 50 - Diagnostic Test Ordered EKG: Yes CPR started during STOGY MAKER?: No - Vital Signs Vital Sign: Rapid Response Vital Sign Blood Pressure 154/102 Pulse Rate 109 Respiratory Rate 20 Temperature 99 F Oxygen Saturation 97 - Time STOGY MAKER Ended Time STOGY MAKER Ended: 11:08 - Recommendations Notifications: Attending Physician I.Reason for STOGY MAKER - A) Acute Change in Patient: (Select all that apply): Acute change in mental status Subjective: Pt is a 31 yo male with PMH of percocet dependence on suboxone, anxiety, seizure and stroke whom was admitted for erratic behavior and was found to have opiates, benzos, and marijuana in his system. Rapid Response was called due to patients CIWA score of 32, including HTN, Tachycardic, and hallucinations. Upon evaluation patient appeard to be hallucinating and mumbling incomprehensible sentences. Patient was not able to follow commands but was awake. - Neurological Status (Select all that apply): Disoriented - Respiratory Oxygen Delivery Method: Room Air - Constitutional Appears: Other Additional Comments: Disoreiented and hallucinating - Head Head Exam: ATRAUMATIC, NORMAL INSPECTION, NORMOCEPHALIC - Respiratory Exam Respiratory Exam: Clear to Ausculation Bilateral, NORMAL BREATHING PATTERN. absent: Rales, Rhonchi, Wheezes, Respiratory Distress, Stridor - Cardiovascular Exam Cardiovascular Exam: Tachycardia, REGULAR RHYTHM, +S1, +S2. absent: Gallop, JVD , Rubs - GI/Abdominal Exam GI & Abdominal Exam: Soft, Normal Bowel Sounds. absent: Distended, Firm, Guarding, Rigid, Tenderness, Hyperactive Bowel Sounds, Organomegaly - Neurological Exam Neurological Exam: Awake Additional exam: Disoreiented and unable to follow commands, moving extremeties grossly - Extremities Exam Extremities Exam: Normal Inspection. absent: Pedal Edema Plan - Assessment of Findings&Treatment Plan This a 31 yo male admitted with bizarre nehavior secondary to polysubstance abuse. STOGY MAKER called for active withdrawal with CIWA score of 32. Patients primary Doctor is Dr. Garza who was present at bedside. 1. Stat dose of 2 mg Ativan given 2. Stat dose librium 50 3. Will continue 2mg Ativan q2h PRN 4. Will continue 50 mg librium q6H 5. Continue CIWA protocol 6. Will transfer to telemetry 7. Will hold off ICU for now 8. Psyche consulted, follow up Discussed with the Attending, Dr. Garza <Pal Garza - Last Filed: 06/04/17 14:43> STOGY MAKER Nurse Assessment - Vital Signs Vital Sign: Rapid Response Vital Sign Blood Pressure 154/102 Pulse Rate 109 Respiratory Rate 20 Temperature 99 F Oxygen Saturation 97 Attending/Attestation - Attestation I have personally seen and examined this patient.: Yes I have fully participated in the care of the patient.: Yes I have reviewed all pertinent clinical information, including history, physical exam and plan: Yes
[2017-06-04 13:02] LABS: TESTOSTERONE 149 ng/mL
[2017-06-04] MEDS: Folic Acid 1 MG, Thiamine 100 MG, Multivitamin (MVI) 10 ML in Dextrose 5% In Water 1,00... IV SCH (13:21)
--- NOTE | 2017-06-04 22:21 | CON ---
HISTORY OF PRESENT ILLNESS: The patient is a 31-year-old male, reported a history of ADD. The patient has history of both substance abuse and dependence. The patient is on Suboxone. The patient is on stimulant. The patient has history of stroke. The patient was admitted on the medical floor for evaluation of erratic behavior. Psyche consult was called for evaluation of disorganized behavior. This newspaper writer is familiar with this patient from the previous admissions on the medical site. This patient presented to be disorganized and had ADD, difficult to concentrate, difficult to stay focused, bogged down, and the patient also had multiple social issues in the past. Going back to the patient's presentation now, the patient presented to be disorganized, difficult to stay focused during the interview. At times answers were not related to the questions being asked. The patient is on one-to-one. As per one-to-one sitter the patient was actually hallucinating, was responding to internal stimuli and seems to have visual hallucinations. The patient is poor and unreliable historian, very hard to interview the patient because thought process is tangential. VITAL SIGNS: Vital signs reviewed. Temperature 99.7, pulse is 91, blood pressure is 154/102, respirations 21, and oxygen saturation 97%. MEDICATIONS: Reviewed. The patient is on Rocephin, Librium 50 mg q. 6 hours schedule, q. 2 hours if needed, Flagyl, Zofran, Protonix. Seroquel will be started at the night time for altered mental status. The patient is on sodium chloride. LABORATORY DATA: Labs were reviewed. Urine drug screen was positive for opioids as well as benzodiazepines as well as cannabis. Hematology reviewed, the patient has leukocytosis but trending down. Chemistry reviewed, AST and ALT were within normal limits. MENTAL STATUS EXAMINATION: The patient is very disorganized, does not know where he is. The patient thinks that he came to the hospital only to be checked up. No intermittent eye contact. Speech was overproductive. The patient has no dentures. Mood described fine. Affect was labile. Thought process, circumstantial and tangential. Thought content, the patient denied hallucinations but obviously psychotic and the patient was having visual and auditory hallucinations earlier. Insight and judgment limited. Impulses are unpredictable. IMPRESSION: Most likely, the patient is in delirium stage, mostly likely related to both substance abuse and dependence as well as alcohol withdrawal. Visual hallucinations are related to either medical issues or substance abuse. The patient also has some leukocytosis, infection cannot be excluded. PLAN: residential treatment counselor called to the patient's pharmacy [facility]. The patient was on Suboxone 03/25 three times a day by Dr. Juan filled on 05/19/2017 one month supply was given, Xanax 10 mg three times a day scheduled, filled on 05/19/2017 the same prescriber one month supply was given, methylphenidate 5 mg twice a day, one month supply was given, filled on 05/18/2017 same prescriber as well as Keppra 500 mg twice a day, same prescriber and it was filled on 03/28/2017. The patient is currently on benzodiazepines, we will recommend to continue Librium 50 mg four times a day. Suboxone is nonformulary in the hospital. Methylphenidate stimulants would not be good choice for this patient. P.r.n. orders for change in mental status will be started as well as Seroquel 12.5 mg at the nighttime started as well. We will try to follow up on this patient, advised accordingly. Should they have any questions to give me a call back. Alexandra Kelley MD
[2017-06-05] MEDS: Folic Acid 1 MG, Thiamine 100 MG, Multivitamin (MVI) 10 ML in Dextrose 5% In Water 1,00... IV SCH (01:05)
[2017-06-05 06:57] LABS: URINE BILIRUBIN SMALL (NEGATIVE); URINE BLOOD LARGE (NEGATIVE); URINE GLUCOSE (UA) NEGATIVE (NEGATIVE); URINE KETONE 15 mg/dL (NEGATIVE); URINE LEUKOCYTE ESTERASE TRACE Leu/uL (NEGATIVE); URINE PROTEIN TRACE mg/dL (<30 mg/dL)
[2017-06-05 06:59] LABS: URINE APPEARANCE SLIGHT-CLOUDY (CLEAR); URINE COLOR DARK YELLOW (YELLOW)
[2017-06-05 06:59] LABS: BASO # 0.02 K/mm3 (0.0-2.0); BASO % 0.3 % (0.0-3.0); EOS # 0.1 (0.0-0.7); EOS % 1.4 % (1.5-5.0); GRAN # 3.28 (1.4-6.5); GRAN % 52.3 % (50.0-68.0); HEMATOCRIT 40.6 % (42.0-52.0); LYMPH # 2.5 (1.2-3.4); MEAN CELL VOLUME 84.9 fl (80.0-105.0); MEAN CORPUSCULAR HEMOGLOBIN 28.2 pg (25.0-35.0); MEAN CORPUSCULAR HGB CONC 33.3 g/dl (31.0-37.0); MEAN PLATELET VOLUME 9.4 fl (7.0-11.0); MONO # 0.4 (0.1-0.6); RED CELL DISTRIBUTION WIDTH 13.8 % (11.5-14.5); WHITE BLOOD COUNT 6.3 10^3/ul (4.5-11.0)
[2017-06-05 07:02] LABS: URINE BACTERIA RARE (NEG); URINE EPITHELIAL CELLS 0 - 2 /hpf (0-5)
[2017-06-05 07:21] LABS: ALB/GLOB RATIO 1.4 (1.1-1.8); ALKALINE PHOSPHATASE 62 U/L (38-126); ALT/SGPT 29 U/L (7-56); AST/SGOT 30 U/L (17-59); BILIRUBIN,TOTAL 1.6 mg/dL (0.2-1.3); BLOOD UREA NITROGEN 13 mg/dL (7-21); CALCIUM 8.4 mg/dL (8.4-10.5); CARBON DIOXIDE 27 mmol/L (21-33); CHLORIDE 102 mmol/L (98-107); GFR AFRICAN-AMERICAN > 60; GLUCOSE,RANDOM 99 mg/dL (70-110); SODIUM 137 mmol/L (132-148); TOTAL PROTEIN 6.5 g/dL (5.8-8.3)
[2017-06-05] MEDS: metroNIDAZOLE IV 500 mg/100 ml 500 MG/100 ML BAG IVPB SCH ×2 (07:56→14:24)
--- NOTE | 2017-06-05 09:32 | CP.PCM.PN ---
Subjective - Date & Time of Evaluation Date of Evaluation: 06/05/17 Time of Evaluation: 09:29 - Subjective Subjective: Surgery Pt s&e. Pt is more alert and oriented this AM. Denies F/C/N/V/D/CP/SOB/abd pain. Parker in place. Objective - Vital Signs/Intake and Output Vital Signs (last 24 hours): Temp Pulse Resp BP Pulse Ox 97.7 F 94 H 20 131/92 H 93 L 06/05/17 06:00 06/05/17 06:00 06/05/17 06:00 06/05/17 06:00 06/05/17 00:01 Intake and Output: 06/05/17 06/05/17 06:59 18:59 Intake Total 1540 Output Total 800 Balance 740 - Medications Medications: Current Medications Chlordiazepoxide (Librium) 50 mg PO Q6 [facility]RI PRN Reason: Protocol Last Admin: 06/05/17 05:23 Dose: 50 mg Metronidazole (Flagyl) 500 mg in 100 mls @ 100 mls/hr IVPB Q8 [facility]RI PRN Reason: Protocol Last Admin: 06/05/17 07:56 Dose: 100 mls/hr Sodium Chloride (Sodium Chloride 0.9%) 1,000 mls @ 125 mls/hr IV .Q8H [facility] Last Admin: 06/04/17 20:31 Dose: Not Given Folic Acid 1 mg/ Thiamine HCl 100 mg/ Multivitamins/Vitamin C 10 ml/ Dextrose 1 ,011.2 mls @ 100 mls/hr IV .Q10H7M [facility] Last Admin: 06/05/17 01:05 Dose: 100 mls/hr Potassium Chloride (Potassium Chloride 20 Meq/100 Ml) 20 meq in 100 mls @ 50 mls/hr IVPB Q2H [facility] Stop: 06/05/17 11:44 Last Admin: 06/05/17 09:02 Dose: 50 mls/hr Ceftriaxone Sodium (Rocephin 1 Gram Ivpb) 1 gm in 100 mls @ 100 mls/hr IVPB 1330 [facility]RI PRN Reason: Protocol Lorazepam (Ativan) 2 mg IVP Q2 PRN; Protocol PRN Reason: Anxiety Last Admin: 06/05/17 07:56 Dose: 2 mg Ondansetron HCl (Zofran Inj) 4 mg IVP Q6H PRN PRN Reason: Nausea/Vomiting Pantoprazole Sodium (Protonix Inj) 40 mg IVP DAILY [facility] Last Admin: 06/05/17 09:15 Dose: 40 mg Quetiapine Fumarate (Seroquel) 25 mg PO HS [facility]RI PRN Reason: Protocol Last Admin: 06/04/17 21:07 Dose: 25 mg - Labs Labs: 06/05/17 06:53 06/05/17 06:53 PT 12.4 Seconds (9.9-11.8) H 06/04/17 06:40 INR 1.15 (0.93-1.08) H 06/04/17 06:40 APTT 28.7 Seconds (23.7-30.8) 06/04/17 06:40 - Constitutional Appears: Non-toxic - Head Exam Head Exam: ATRAUMATIC, NORMAL INSPECTION, NORMOCEPHALIC - Eye Exam Eye Exam: EOMI, Normal appearance, PERRL Pupil Exam: NORMAL ACCOMODATION, PERRL - ENT Exam ENT Exam: Mucous Membranes Moist, Normal Exam - Neck Exam Neck Exam: Full ROM, Normal Inspection. absent: Lymphadenopathy - Respiratory Exam Respiratory Exam: Clear to Ausculation Bilateral, NORMAL BREATHING PATTERN - Cardiovascular Exam Cardiovascular Exam: REGULAR RHYTHM, +S1, +S2. absent: Murmur - GI/Abdominal Exam GI & Abdominal Exam: Soft, Normal Bowel Sounds. absent: Distended, Firm, Guarding, Tenderness Additional comments: no psoas sign, no obturator sign - Exam Additional comments: Parker in place - Extremities Exam Extremities Exam: Full ROM, Normal Capillary Refill, Normal Inspection. absent : Joint Swelling, Pedal Edema - Back Exam Back Exam: NORMAL INSPECTION - Neurological Exam Neurological Exam: Awake - Psychiatric Exam Psychiatric exam: Agitated - Skin Skin Exam: Dry, Intact, Normal Color, Warm Assessment and Plan - Assessment and Plan (Free Text) Assessment: R/O appendicitis : No signs of appendicitis -Serial abd exam -Advance diet as tolerated. -Medical management -We will follow closely DW Dr. Ricci
[2017-06-05] MEDS: Sodium Chloride 0.9% 1,000 ML IV SCH ×2 (12:22→23:06)
[2017-06-05] MEDS: cefTRIAXone 1 gm 1 GM/100 ML BAG IVPB SCH (14:25)
--- NOTE | 2017-06-05 15:06 | CP.PCM.PN ---
<Rubén Walters - Last Filed: 06/05/17 15:17> Subjective - Date & Time of Evaluation Date of Evaluation: 06/05/17 Time of Evaluation: 07:00 - Subjective Subjective: Progress note- Medicine Pt S&E at bedside this AM. Pt had CERAMIC COATER yesterday morning. pt was put on CIWA protocol. Last night patient was unable to void, wyatt was put in and 600+cc of clear urine came out. This AM pt is more coherent and able to converse in comparison to yesterday. Pt feeling anxious and is receiving Ativan q2. Denies abdominal pain, F/C CP/SOB N/V/D Objective - Vital Signs/Intake and Output Vital Signs (last 24 hours): Temp Pulse Resp BP Pulse Ox 98.9 F 76 16 125/72 93 L 06/05/17 11:28 06/05/17 11:28 06/05/17 11:28 06/05/17 11:28 06/05/17 00:01 Intake and Output: 06/05/17 06/05/17 06:59 18:59 Intake Total 1540 Output Total 800 Balance 740 - Medications Medications: Current Medications Chlordiazepoxide (Librium) 25 mg PO Q6H [facility]RI PRN Reason: Protocol Last Admin: 06/05/17 12:21 Dose: 25 mg Metronidazole (Flagyl) 500 mg in 100 mls @ 100 mls/hr IVPB Q8 SRI PRN Reason: Protocol Last Admin: 06/05/17 14:24 Dose: 100 mls/hr Sodium Chloride (Sodium Chloride 0.9%) 1,000 mls @ 125 mls/hr IV .Q8H [facility] Last Admin: 06/05/17 12:22 Dose: Not Given Ceftriaxone Sodium (Rocephin 1 Gram Ivpb) 1 gm in 100 mls @ 100 mls/hr IVPB 1330 SRI PRN Reason: Protocol Last Admin: 06/05/17 14:25 Dose: 100 mls/hr Lorazepam (Ativan) 2 mg IVP Q6H PRN; Protocol PRN Reason: Anxiety Ondansetron HCl (Zofran Inj) 4 mg IVP Q6H PRN PRN Reason: Nausea/Vomiting Pantoprazole Sodium (Protonix Inj) 40 mg IVP DAILY [facility] Last Admin: 06/05/17 09:15 Dose: 40 mg Quetiapine Fumarate (Seroquel) 25 mg PO AMHS SRI PRN Reason: Protocol - Labs Labs: 06/05/17 06:53 06/05/17 06:53 PT 12.4 Seconds (9.9-11.8) H 06/04/17 06:40 INR 1.15 (0.93-1.08) H 06/04/17 06:40 APTT 28.7 Seconds (23.7-30.8) 06/04/17 06:40 - Constitutional Appears: Non-toxic, No Acute Distress - Eye Exam Eye Exam: EOMI. absent: Scleral icterus - ENT Exam ENT Exam: Mucous Membranes Moist - Respiratory Exam Respiratory Exam: NORMAL BREATHING PATTERN. absent: Accessory Muscle Use, Respiratory Distress - Cardiovascular Exam Cardiovascular Exam: +S1, +S2 - GI/Abdominal Exam GI & Abdominal Exam: Soft. absent: Distended, Tenderness - Extremities Exam Extremities Exam: Normal Inspection. absent: Calf Tenderness - Neurological Exam Neurological Exam: Alert, Awake, Oriented x3 - Psychiatric Exam Psychiatric exam: Agitated - Skin Skin Exam: Normal Color, Warm Assessment and Plan - Assessment and Plan (Free Text) Assessment: 31M PMH of opiod dependence on suboxone, anxiety, seizure, and stroke, CERAMIC COATER called yesterday showing signs of withdrawal on CIWA protocol. Dx w/ UTI AMS/Acute Delirium UTI vs. Drug vs. Psychiatric vs. withdrawal 2/2 benzo UDS positive for opiates, benzodiazepines, and cannabinoids CIWA protocol Ativan and Librium Quitipein at night UTI UA showed small blood, small bilirubin, and trace leukocyte esterase WBC 14.4 procalcitonin WNL Ceftriaxone Dialated appendix on CT C/s Surgery No signs of acute Appendicitis Will d/c Flagyl Resume regular diet H/O Opioid Dependence Hold Suboxone; GI/DVT PPx - Protonix - SCDs D/C Wyatt today will continue to monitor neuro and psychiatric function Rubén Walters PGY1 <Pal Garza - Last Filed: 06/05/17 16:56> Objective - Vital Signs/Intake and Output Vital Signs (last 24 hours): Temp Pulse Resp BP Pulse Ox 98.9 F 76 16 125/72 93 L 06/05/17 11:28 06/05/17 11:28 06/05/17 11:28 06/05/17 11:28 06/05/17 00:01 Intake and Output: 06/05/17 06/05/17 06:59 18:59 Intake Total 1540 Output Total 800 Balance 740 - Medications Medications: Current Medications Chlordiazepoxide (Librium) 25 mg PO Q6H [facility]RI PRN Reason: Protocol Last Admin: 06/05/17 12:21 Dose: 25 mg Metronidazole (Flagyl) 500 mg in 100 mls @ 100 mls/hr IVPB Q8 SRI PRN Reason: Protocol Last Admin: 06/05/17 14:24 Dose: 100 mls/hr Sodium Chloride (Sodium Chloride 0.9%) 1,000 mls @ 125 mls/hr IV .Q8H [facility] Last Admin: 06/05/17 12:22 Dose: Not Given Ceftriaxone Sodium (Rocephin 1 Gram Ivpb) 1 gm in 100 mls @ 100 mls/hr IVPB 1330 SRI PRN Reason: Protocol Last Admin: 06/05/17 14:25 Dose: 100 mls/hr Lorazepam (Ativan) 2 mg IVP Q6H PRN; Protocol PRN Reason: Anxiety Ondansetron HCl (Zofran Inj) 4 mg IVP Q6H PRN PRN Reason: Nausea/Vomiting Pantoprazole Sodium (Protonix Inj) 40 mg IVP DAILY [facility] Last Admin: 06/05/17 09:15 Dose: 40 mg Quetiapine Fumarate (Seroquel) 25 mg PO AMHS SRI PRN Reason: Protocol - Labs Labs: 06/05/17 06:53 06/05/17 06:53 PT 12.4 Seconds (9.9-11.8) H 06/04/17 06:40 INR 1.15 (0.93-1.08) H 06/04/17 06:40 APTT 28.7 Seconds (23.7-30.8) 06/04/17 06:40 Attending/Attestation - Attestation I have personally seen and examined this patient.: Yes I have fully participated in the care of the patient.: Yes I have reviewed all pertinent clinical information, including history, physical exam and plan: Yes Notes (Text): 06/05/17 16:47 31 year old male with past medical history of substane abuse, opioid dependency , and anxiety who presented with altered mental status likely secondary to substance abuse and possible alcohol withdrawal / UTI. Urine drug screen was positive for opiates, benzodiazepine and cannabinoids. Today he is more alert. Will taper his librium and ativan. Psychiatry follow up is requested. He is on ceftriaxone while awaiting urine culture. He was also found to have incidental dilated appendix on CT scan. He denies any abdominal pain. Surgery is following the patient and has advanced his diet which he is tolerating. Last night wyatt was placed due to urinary retention. Will d/c wyatt and start voiding trial. Pal Garza MD Hospitalist.
[2017-06-06 02:37] VITALS: RESP 20
[2017-06-06 06:58] VITALS: O2SAT 95
--- NOTE | 2017-06-06 07:43 | CP.PCM.PN ---
Subjective - Date & Time of Evaluation Date of Evaluation: 06/06/17 Time of Evaluation: 07:00 - Subjective Subjective: General Surgery Consult Note for Dr. Ricci Patient seen and examined at bedside. No acute event overnight. Patient resting in bed comfortably. Patient is alert, awake, and oriented x3. He is tolerating diet. No complaints at this time. Objective - Vital Signs/Intake and Output Vital Signs (last 24 hours): Temp Pulse Resp BP Pulse Ox 97.2 F L 94 H 20 133/97 H 95 06/06/17 06:00 06/06/17 06:00 06/06/17 06:00 06/06/17 06:00 06/06/17 06:00 Intake and Output: 06/06/17 06/06/17 06:59 18:59 Intake Total 2007 Balance 2007 - Medications Medications: Current Medications Chlordiazepoxide (Librium) 25 mg PO Q6H [facility]RI PRN Reason: Protocol Last Admin: 06/06/17 06:40 Dose: Not Given Sodium Chloride (Sodium Chloride 0.9%) 1,000 mls @ 125 mls/hr IV .Q8H [facility] Last Admin: 06/05/17 23:06 Dose: 125 mls/hr Ceftriaxone Sodium (Rocephin 1 Gram Ivpb) 1 gm in 100 mls @ 100 mls/hr IVPB 1330 SRI PRN Reason: Protocol Last Admin: 06/05/17 14:25 Dose: 100 mls/hr Lorazepam (Ativan) 2 mg IVP Q6H PRN; Protocol PRN Reason: Anxiety Nicotine (Nicoderm Cq) 1 patch TD DAILY [facility] Last Admin: 06/05/17 18:26 Dose: 1 patch Ondansetron HCl (Zofran Inj) 4 mg IVP Q6H PRN PRN Reason: Nausea/Vomiting Pantoprazole Sodium (Protonix Inj) 40 mg IVP DAILY [facility] Last Admin: 06/05/17 09:15 Dose: 40 mg Quetiapine Fumarate (Seroquel) 25 mg PO AMHS SRI PRN Reason: Protocol Last Admin: 06/05/17 23:06 Dose: 25 mg - Labs Labs: 06/05/17 06:53 06/05/17 06:53 PT 12.4 Seconds (9.9-11.8) H 06/04/17 06:40 INR 1.15 (0.93-1.08) H 06/04/17 06:40 APTT 28.7 Seconds (23.7-30.8) 06/04/17 06:40 - Constitutional Appears: Non-toxic, No Acute Distress - Head Exam Head Exam: ATRAUMATIC, NORMOCEPHALIC - Eye Exam Eye Exam: Normal appearance - ENT Exam ENT Exam: Mucous Membranes Moist - Respiratory Exam Respiratory Exam: NORMAL BREATHING PATTERN - Cardiovascular Exam Cardiovascular Exam: REGULAR RHYTHM - GI/Abdominal Exam GI & Abdominal Exam: Soft. absent: Distended, Firm, Guarding, Tenderness, Rebound - Neurological Exam Neurological Exam: Alert, Awake, Oriented x3 - Psychiatric Exam Psychiatric exam: Normal Affect, Normal Mood - Skin Skin Exam: Dry, Intact, Normal Color, Warm Assessment and Plan - Assessment and Plan (Free Text) Plan: 31 M initally with AMS and abd pain - General Surgery consulted for suspected appendicitis -Asymptomatic, no evidence of appendicitis currently -Regular diet -Medical management as per primary -No surgical intervention at this time -Will LILI Marks PGY1
[2017-06-06 08:40] LABS: HEMATOCRIT 42.4 % (42.0-52.0); MEAN CELL VOLUME 83.8 fl (80.0-105.0); MEAN CORPUSCULAR HEMOGLOBIN 28.5 pg (25.0-35.0); MEAN PLATELET VOLUME 9.9 fl (7.0-11.0); RED CELL DISTRIBUTION WIDTH 13.5 % (11.5-14.5); WHITE BLOOD COUNT 10.7 10^3/ul (4.5-11.0)
[2017-06-06 08:57] LABS: ALB/GLOB RATIO 1.5 (1.1-1.8); ALKALINE PHOSPHATASE 74 U/L (38-126); ALT/SGPT 35 U/L (7-56); AST/SGOT 25 U/L (17-59); BILIRUBIN,TOTAL 1.2 mg/dL (0.2-1.3); BLOOD UREA NITROGEN 8 mg/dL (7-21); CALCIUM 8.9 mg/dL (8.4-10.5); CARBON DIOXIDE 26 mmol/L (21-33); CHLORIDE 106 mmol/L (95-110); CHOLESTEROL 167 mg/dL (130-200); GFR AFRICAN-AMERICAN > 60; GLUCOSE,RANDOM 98 mg/dL (70-110); POTASSIUM 3.7 mmol/L (3.6-5.0); SODIUM 140 mmol/L (132-148)
[2017-06-06] MEDS: Sodium Chloride 0.9% 1,000 ML IV SCH (09:52)
[2017-06-06 13:56] VITALS: BP 131/92; TEMP 98
[2017-06-06 14:37] VITALS: PULSE 98
[2017-06-06] MEDS: cefTRIAXone 1 gm 1 GM/100 ML BAG IVPB SCH (14:42)
--- NOTE | 2017-06-06 14:54 | CP.PCM.DIS ---
<Huey Hernandez - Last Filed: 06/06/17 18:50> Provider - Provider Date of Admission: 06/04/17 01:51 Attending physician: Pal Garza MD Primary care physician: NO PRIMARY CARE PROVIDER Time Spent in preparation of Discharge (in minutes): 45 Hospital Course - Lab Results Lab Results: Most Recent Lab Values WBC 10.7 10^3/ul (4.5-11.0) D 06/06/17 08:00 RBC 5.06 10^6/uL (3.5-6.1) 06/06/17 08:00 Hgb 14.4 g/dL (14.0-18.0) 06/06/17 08:00 Hct 42.4 % (42.0-52.0) 06/06/17 08:00 MCV 83.8 fl (80.0-105.0) 06/06/17 08:00 MCH 28.5 pg (25.0-35.0) 06/06/17 08:00 MCHC 34.0 g/dl (31.0-37.0) 06/06/17 08:00 RDW 13.5 % (11.5-14.5) 06/06/17 08:00 Plt Count 131 10^3/uL (120.0-450.0) 06/06/17 08:00 MPV 9.9 fl (7.0-11.0) 06/06/17 08:00 Gran % 52.3 % (50.0-68.0) 06/05/17 06:53 Lymph % (Auto) 39.0 % (22.0-35.0) H 06/05/17 06:53 Garrard % (Auto) 7.0 % (1.0-6.0) H 06/05/17 06:53 Eos % (Auto) 1.4 % (1.5-5.0) L 06/05/17 06:53 Baso % (Auto) 0.3 % (0.0-3.0) 06/05/17 06:53 Gran # 3.28 (1.4-6.5) 06/05/17 06:53 Lymph # 2.5 (1.2-3.4) 06/05/17 06:53 Garrard # 0.4 (0.1-0.6) 06/05/17 06:53 Eos # 0.1 (0.0-0.7) 06/05/17 06:53 Baso # 0.02 K/mm3 (0.0-2.0) 06/05/17 06:53 PT 12.4 Seconds (9.9-11.8) H 06/04/17 06:40 INR 1.15 (0.93-1.08) H 06/04/17 06:40 APTT 28.7 Seconds (23.7-30.8) 06/04/17 06:40 pO2 43 mm/Hg (30-55) 06/04/17 00:46 VBG pH 7.33 (7.32-7.43) 06/04/17 00:46 VBG pCO2 56.0 (40-60) 10 00:46 VBG HCO3 29.5 mmol/l (21-28) H 06/04/17 00:46 VBG Total CO2 31.2 mmol.L (22-28) H 06/04/17 00:46 VBG O2 Sat (Calc) 85.5 % (40-65) H 06/04/17 00:46 VBG Base Excess 2.3 mmol/L (0.0-2.0) H 06/04/17 00:46 VBG Potassium 4.2 mmol/L (3.6-5.2) 10 00:46 Sodium 136.0 mmol/L (132-148) 06/04/17 00:46 Chloride 100.0 mmol/L (98-107) 06/04/17 00:46 Glucose 100 mg/dl (75-110) 06/04/17 00:46 Lactate 1.2 mmol/L (0.7-2.1) 06/04/17 00:46 FiO2 21.0 % 06/04/17 00:46 Sodium 140 mmol/L (132-148) 06/06/17 08:00 Potassium 3.7 mmol/L (3.6-5.0) 06/06/17 08:00 Chloride 106 mmol/L (95-110) 06/06/17 08:00 Carbon Dioxide 26 mmol/L (21-33) 06/06/17 08:00 Anion Gap 12 (10-20) 06/06/17 08:00 BUN 8 mg/dL (7-21) 06/06/17 08:00 Creatinine 0.8 mg/dL (0.8-1.5) 06/06/17 08:00 Est GFR ( Amer) > 60 06/06/17 08:00 Est GFR (Non-Af Amer) > 60 06/06/17 08:00 POC Glucose (mg/dL) 79 mg/dL (65-110) 06/04/17 11:11 Random Glucose 98 mg/dL (70-110) 06/06/17 08:00 Calcium 8.9 mg/dL (8.4-10.5) 06/06/17 08:00 Phosphorus 2.8 mg/dL (2.5-4.5) 06/04/17 06:40 Magnesium 2.3 mg/dL (1.7-2.2) H 06/05/17 06:00 Total Bilirubin 1.2 mg/dL (0.2-1.3) 06/06/17 08:00 AST 25 U/L (17-59) 06/06/17 08:00 ALT 35 U/L (7-56) 06/06/17 08:00 Alkaline Phosphatase 74 U/L (38-126) 06/06/17 08:00 Total Protein 7.0 g/dL (5.8-8.3) 06/06/17 08:00 Albumin 4.2 g/dL (3.0-4.8) 06/06/17 08:00 Globulin 2.8 gm/dL 06/06/17 08:00 Albumin/Globulin Ratio 1.5 (1.1-1.8) 06/06/17 08:00 Triglycerides 72 mg/dL (35-160) 06/06/17 08:00 Cholesterol 167 mg/dL (130-200) 06/06/17 08:00 LDL Cholesterol Direct 120 mg/dL (0-129) 06/06/17 08:00 HDL Cholesterol 29 mg/dL (29-60) 06/06/17 08:00 Vitamin B12 283 pg/mL (239-931) 06/04/17 06:40 Procalcitonin 0.05 NG/ML (0.19-0.49) L 06/04/17 06:40 TSH 3rd Generation 1.19 mIU/mL (0.46-4.68) 06/04/17 06:40 Testosterone Level 149 ng/mL 06/04/17 06:40 Venous Blood Potassium 4.2 mmol/L (3.6-5.2) 06/04/17 00:46 Urine Color Dark yellow (YELLOW) 06/05/17 06:15 Urine Appearance Slight-cloudy (CLEAR) 06/05/17 06:15 Urine pH 6.0 (4.7-8.0) 06/05/17 06:15 Ur Specific [place] 1.025 (1.005-1.035) 06/05/17 06:15 Urine Protein Trace mg/dL (<30 mg/dL) H 06/05/17 06:15 Urine Glucose (UA) Negative mg/dL (NEGATIVE) 06/05/17 06:15 Urine Ketones 15 mg/dL (NEGATIVE) H 06/05/17 06:15 Urine Blood Large (NEGATIVE) H 06/05/17 06:15 Urine Nitrate Negative (NEGATIVE) 06/05/17 06:15 Urine Bilirubin Small (NEGATIVE) H 06/05/17 06:15 Urine Urobilinogen 2.0 E.U./dL (<1 E.U./dL) H 06/05/17 06:15 Ur Leukocyte Esterase Trace Janae/uL (NEGATIVE) H 06/05/17 06:15 Urine RBC 10 - 15 /hpf (0-2) 06/05/17 06:15 Urine WBC 1 - 3 /hpf (0-6) 06/05/17 06:15 Ur Epithelial Cells 0 - 2 /hpf (0-5) 06/05/17 06:15 Urine Bacteria Rare (NEG) 06/05/17 06:15 Fine Granular Casts 0 - 2 /hpf (0-2) 06/03/17 23:03 Salicylates < 1 mg/dL (2.0-20.0) L 06/03/17 15:50 Urine Opiates Screen Positive (NEGATIVE) H 06/03/17 23:03 Urine Methadone Screen Negative (NEGATIVE) 06/03/17 23:03 Acetaminophen < 10.0 ug/ml (10.0-20.0) L 06/03/17 15:50 Ur Barbiturates Screen Negative (NEGATIVE) 06/03/17 23:03 Ur Phencyclidine Scrn Negative (NEGATIVE) 06/03/17 23:03 Ur Amphetamines Screen Negative (NEGATIVE) 06/03/17 23:03 U Benzodiazepines Scrn Positive (NEGATIVE) H 06/03/17 23:03 U Oth Cocaine Metabols Negative (NEGATIVE) 06/03/17 23:03 U Cannabinoids Screen Positive (NEGATIVE) H 06/03/17 23:03 Alcohol, Quantitative < 10 mg/dL (0-10) 06/03/17 15:50 - Hospital Course Hospital Course: Pt is a 31 yo male with PMH of percocet dependence on suboxone, anxiety, seizure and stroke presents to [facility] after police found patient to be acting bizzare. Pt was visiting his kids earlier today when DYFS came for evaluation. At that point the police department was called. The patient was found by DYFS and the police to be demonstrating delirious behavior and was brought to the hospital for evaluation. Pt states that he took his Xanax and Suboxone this AM and takes it on a regular basis. The patient denied any CP, SOB, n/v/d, abdominal pain, chills, fever, visual/ auditory hallucinations, homicidal/ suicidal ideations, dysuria, polyuria, TOVAR, or dizziness. The patient was admitted for altered mental status. While admitted the patient had an episode of auditory and visual hallucinations and had an episode of sinus tachycardia at 150. The patient had a rapid response called on him as a result and was transferred to Telemetry and CIWA protocol was started. The patient was also given Ativan for the agitation and a banana bag. The patient was seen by Psychiatry and Surgery while admitted to the hospital. The patient had an abdomen/pelvis ct done that showed a borderline enlarged appendix with no inflammation. The patient also had a head ct and chest xray done that was negative. Surgery saw the patient and determined he didn't need any surgical intervention at this time. The patient was then saw by Psychiatry and cleared him from their standpoint. The patient was discharged with instructions to follow up with PMD within one week of discharge. Discharge Exam - Head Exam Head Exam: ATRAUMATIC, NORMOCEPHALIC - Eye Exam Eye Exam: EOMI, Normal appearance, PERRL. absent: Periorbital tenderness Pupil Exam: NORMAL ACCOMODATION, PERRL. absent: Irregular, Unequal - ENT Exam ENT Exam: Mucous Membranes Moist, Normal Oropharynx - Neck Exam Neck exam: Normal Inspection - Respiratory Exam Respiratory Exam: Clear to PA & Lateral, NORMAL BREATHING PATTERN, UNREMARKABLE. absent: Chest Wall Tenderness, Prolonged Expiratory Phase, Respiratory Distress - Cardiovascular Exam Cardiovascular Exam: REGULAR RHYTHM, RRR, +S1, +S2. absent: Gallop, Rubs - GI/Abdominal Exam GI & Abdominal Exam: Normal Bowel Sounds, Unremarkable. absent: Diminished Bowel Sounds, Hypoactive Bowel Sounds, Organomegaly - Extremities Exam Extremities exam: full ROM - Neurological Exam Neurological exam: Alert, CN II-XII Intact, Normal Gait, Oriented x3, Reflexes Normal - Psychiatric Exam Psychiatric exam: Normal Affect, Normal Mood - Skin Skin Exam: Dry, Intact Discharge Plan - Follow Up Plan Condition: STABLE Disposition: HOME/ ROUTINE Instructions: Benzodiazepine Abuse (DC) Additional Instructions: Patient advised to follow up with PMD within one week of discharge. Patient advised to return to E.D. for any new or worsening symptoms. Referrals: PCP,NO [Primary Care Provider] - <Pal Garza - Last Filed: 06/07/17 07:12> Provider - Provider Date of Admission: 06/04/17 01:51 Attending physician: Pal Garza MD Primary care physician: NO PRIMARY CARE PROVIDER Hospital Course - Lab Results Lab Results: Most Recent Lab Values WBC 10.7 10^3/ul (4.5-11.0) D 06/06/17 08:00 RBC 5.06 10^6/uL (3.5-6.1) 06/06/17 08:00 Hgb 14.4 g/dL (14.0-18.0) 06/06/17 08:00 Hct 42.4 % (42.0-52.0) 06/06/17 08:00 MCV 83.8 fl (80.0-105.0) 06/06/17 08:00 MCH 28.5 pg (25.0-35.0) 06/06/17 08:00 MCHC 34.0 g/dl (31.0-37.0) 06/06/17 08:00 RDW 13.5 % (11.5-14.5) 06/06/17 08:00 Plt Count 131 10^3/uL (120.0-450.0) 06/06/17 08:00 MPV 9.9 fl (7.0-11.0) 06/06/17 08:00 Gran % 52.3 % (50.0-68.0) 06/05/17 06:53 Lymph % (Auto) 39.0 % (22.0-35.0) H 06/05/17 06:53 Garrard % (Auto) 7.0 % (1.0-6.0) H 06/05/17 06:53 Eos % (Auto) 1.4 % (1.5-5.0) L 06/05/17 06:53 Baso % (Auto) 0.3 % (0.0-3.0) 06/05/17 06:53 Gran # 3.28 (1.4-6.5) 06/05/17 06:53 Lymph # 2.5 (1.2-3.4) 06/05/17 06:53 Garrard # 0.4 (0.1-0.6) 06/05/17 06:53 Eos # 0.1 (0.0-0.7) 06/05/17 06:53 Baso # 0.02 K/mm3 (0.0-2.0) 06/05/17 06:53 PT 12.4 Seconds (9.9-11.8) H 06/04/17 06:40 INR 1.15 (0.93-1.08) H 06/04/17 06:40 APTT 28.7 Seconds (23.7-30.8) 06/04/17 06:40 pO2 43 mm/Hg (30-55) 06/04/17 00:46 VBG pH 7.33 (7.32-7.43) 06/04/17 00:46 VBG pCO2 56.0 (40-60) 06/04/17 00:46 VBG HCO3 29.5 mmol/l (21-28) H 06/04/17 00:46 VBG Total CO2 31.2 mmol.L (22-28) H 06/04/17 00:46 VBG O2 Sat (Calc) 85.5 % (40-65) H 06/04/17 00:46 VBG Base Excess 2.3 mmol/L (0.0-2.0) H 06/04/17 00:46 VBG Potassium 4.2 mmol/L (3.6-5.2) 06/04/17 00:46 Sodium 136.0 mmol/L (132-148) 06/04/17 00:46 Chloride 100.0 mmol/L (98-107) 06/04/17 00:46 Glucose 100 mg/dl (75-110) 06/04/17 00:46 Lactate 1.2 mmol/L (0.7-2.1) 06/04/17 00:46 FiO2 21.0 % 06/04/17 00:46 Sodium 140 mmol/L (132-148) 06/06/17 08:00 Potassium 3.7 mmol/L (3.6-5.0) 06/06/17 08:00 Chloride 106 mmol/L (95-110) 06/06/17 08:00 Carbon Dioxide 26 mmol/L (21-33) 06/06/17 08:00 Anion Gap 12 (10-20) 06/06/17 08:00 BUN 8 mg/dL (7-21) 06/06/17 08:00 Creatinine 0.8 mg/dL (0.8-1.5) 06/06/17 08:00 Est GFR ( Amer) > 60 06/06/17 08:00 Est GFR (Non-Af Amer) > 60 06/06/17 08:00 POC Glucose (mg/dL) 79 mg/dL (65-110) 06/04/17 11:11 Random Glucose 98 mg/dL (70-110) 06/06/17 08:00 Calcium 8.9 mg/dL (8.4-10.5) 06/06/17 08:00 Phosphorus 2.8 mg/dL (2.5-4.5) 06/04/17 06:40 Magnesium 2.3 mg/dL (1.7-2.2) H 06/05/17 06:00 Total Bilirubin 1.2 mg/dL (0.2-1.3) 06/06/17 08:00 AST 25 U/L (17-59) 06/06/17 08:00 ALT 35 U/L (7-56) 06/06/17 08:00 Alkaline Phosphatase 74 U/L (38-126) 06/06/17 08:00 Total Protein 7.0 g/dL (5.8-8.3) 06/06/17 08:00 Albumin 4.2 g/dL (3.0-4.8) 06/06/17 08:00 Globulin 2.8 gm/dL 06/06/17 08:00 Albumin/Globulin Ratio 1.5 (1.1-1.8) 06/06/17 08:00 Triglycerides 72 mg/dL (35-160) 06/06/17 08:00 Cholesterol 167 mg/dL (130-200) 06/06/17 08:00 LDL Cholesterol Direct 120 mg/dL (0-129) 06/06/17 08:00 HDL Cholesterol 29 mg/dL (29-60) 06/06/17 08:00 Vitamin B12 283 pg/mL (239-931) 06/04/17 06:40 Procalcitonin 0.05 NG/ML (0.19-0.49) L 06/04/17 06:40 TSH 3rd Generation 1.19 mIU/mL (0.46-4.68) 06/04/17 06:40 Testosterone Level 149 ng/mL 06/04/17 06:40 Venous Blood Potassium 4.2 mmol/L (3.6-5.2) 06/04/17 00:46 Urine Color Dark yellow (YELLOW) 06/05/17 06:15 Urine Appearance Slight-cloudy (CLEAR) 06/05/17 06:15 Urine pH 6.0 (4.7-8.0) 06/05/17 06:15 Ur Specific [place] 1.025 (1.005-1.035) 06/05/17 06:15 Urine Protein Trace mg/dL (<30 mg/dL) H 06/05/17 06:15 Urine Glucose (UA) Negative mg/dL (NEGATIVE) 06/05/17 06:15 Urine Ketones 15 mg/dL (NEGATIVE) H 06/05/17 06:15 Urine Blood Large (NEGATIVE) H 06/05/17 06:15 Urine Nitrate Negative (NEGATIVE) 06/05/17 06:15 Urine Bilirubin Small (NEGATIVE) H 06/05/17 06:15 Urine Urobilinogen 2.0 E.U./dL (<1 E.U./dL) H 06/05/17 06:15 Ur Leukocyte Esterase Trace Janae/uL (NEGATIVE) H 06/05/17 06:15 Urine RBC 10 - 15 /hpf (0-2) 06/05/17 06:15 Urine WBC 1 - 3 /hpf (0-6) 06/05/17 06:15 Ur Epithelial Cells 0 - 2 /hpf (0-5) 06/05/17 06:15 Urine Bacteria Rare (NEG) 06/05/17 06:15 Fine Granular Casts 0 - 2 /hpf (0-2) 06/03/17 23:03 Salicylates < 1 mg/dL (2.0-20.0) L 06/03/17 15:50 Urine Opiates Screen Positive (NEGATIVE) H 06/03/17 23:03 Urine Methadone Screen Negative (NEGATIVE) 06/03/17 23:03 Acetaminophen < 10.0 ug/ml (10.0-20.0) L 06/03/17 15:50 Ur Barbiturates Screen Negative (NEGATIVE) 06/03/17 23:03 Ur Phencyclidine Scrn Negative (NEGATIVE) 06/03/17 23:03 Ur Amphetamines Screen Negative (NEGATIVE) 06/03/17 23:03 U Benzodiazepines Scrn Positive (NEGATIVE) H 06/03/17 23:03 U Oth Cocaine Metabols Negative (NEGATIVE) 06/03/17 23:03 U Cannabinoids Screen Positive (NEGATIVE) H 06/03/17 23:03 Alcohol, Quantitative < 10 mg/dL (0-10) 06/03/17 15:50 Attending/Attestation - Attestation I have personally seen and examined this patient.: Yes I have fully participated in the care of the patient.: Yes I have reviewed all pertinent clinical information, including history, physical exam and plan: Yes Notes (Text): 06/06/17 31 year old male with past medical history of substance abuse, opioid dependency , and anxiety who presented with altered mental status likely secondary to substance abuse/withdrawal and possible UTI. Urine drug screen was positive for opiates, benzodiazepine and cannabinoids. He was started on librium/ativan taper. He was seen by psychiatry. Today his symptoms have improved. He is no longer confused and able to relay events leading to hospitalization. He was seen by psychiatrist as well. He was started on antibiotics for possible UTI, however urine culture was negative. He was also seen by surgery as initially his CT scan showed incidental dilated appendix, however he denied any abdominal pain. He was seen by advanced his diet which he is tolerating. He is discharged home to follow up with his pmd. Follow up with psychiatrist. Counselled on risks of substance abuse. Pal Garza MD Hospitalist.
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
--- NOTE | 2017-06-08 08:55 | PN ---
FOLLOWUP NOTE SUBJECTIVE: Shortly, the patient is a 31-year-old male with history of ADHD, history of substance abuse and dependence. The patient was admitted on the medical site for change in mental status and acting bizarre. The patient was initially seen yesterday. Medications were confirmed by the patient's pharmacy, [facility]. The patient was on Suboxone. The patient was on Xanax. The patient was on methylphenidate, Keppra. Please see yesterday's note for more detailed information. This senior writer started small dose of Seroquel 25 mg at the nighttime, scheduled overnight. The patient was not able to void. Catheter was placed. Some residual volume of the urine. Please see medical team notes for more detailed information. The patient was followed up today. The patient to be sleepy, but blood process is more organized. The patient said that he is not feeling good today because he had Parker catheter placed overnight, and he was feeling uncomfortable and did not sleep well. At present moment, the patient reported that he feels okay. Denied thoughts of harming himself or others. Denied intent or plan. As per one-to-one report, the patient was actively hallucinating a few minutes before this senior writer's evaluation. VITAL SIGNS: This senior writer reviewed vital signs. Vital signs seem to be stable with temperature of 97.7, pulse is 94, blood pressure 131/92, respirations . MEDICATIONS: Reviewed. The patient is on Rocephin, Librium 50 mg q. 6 hours schedule, multivitamin, thiamine, and folic acid. Ativan 2 mg IV push q. 2 hours p.r.n., most recent . Flagyl, Zofran, Protonix, potassium chloride. Seroquel will be increased to 25 mg twice a day at the morning time and at the nighttime and sodium chloride. LABORATORY DATA: Labs were reviewed. Hemoglobin and hematocrit 13.5 and 40.6. Granulocyte is 3.28. Chemistry reviewed. Potassium 3.0. AST and ALT within normal limits. Urinalysis from the 13; leukocyte esterase trace. Toxicology was positive for opioids, benzodiazepines as well as cannabis. MENTAL STATUS EXAMINATION: The patient is poor and not reliable historian, which could be related to delirium stage as well as ADHD. No eye contact. The patient was disorganized. The patient has no dentures. Mood described as "I'm okay." Affect was flat. Thought process is circumstantial and tangential. Thought content, the patient denied visual, auditory or tactile hallucinations as per one-to-one. The patient was actively hallucinating and catching something in the air. Denied thoughts of harming himself or others. Insight and judgment are very poor. Impulses are unpredictable. IMPRESSION: Most likely, the patient is in delirium stage, which is related to polysubstance abuse and dependence. The patient also has history of being on Suboxone as well as stimulants, which we will confirm with the patient pharmacy. The patient also was positive for opioids as well as benzodiazepines as well as cannabis. The patient also has history of attention deficit hyperactivity disorder, disorganized thoughts and disorganized behavior. PLAN: Continue current management. Continue current medication. This senior writer increased the dose of Seroquel to 25 mg twice a day scheduled. The patient is on Librium protocol. Methylphenidate is not familiar in the hospital, however, this senior writer would recommend this medication for this patient. On top of that, the patient was on Suboxone, which is not familiar in the hospital. One-to-one should be continued. Dr. Trent will follow up on this patient. The patient is improving slowly. Should they have any questions give me a call back. Thank you very much for letting me in participating in care of your patient. Alexandra Kelley MD
== END 2017-06-06 17:24 | disposition home or self-care (01) | DRG 744 ==
LOC: ED 15:11 → ERH 06-04 01:51 → 5RNO 06-04 03:48 → 2RSO 06-04 11:31
PROVIDERS: ADMIT Hospitalist; ATTEND Internal Medicine
DX: F10.231 Alcohol dependence with withdrawal delirium (principal); N39.0 Urinary tract infection, site not specified; F19.20 Other psychoactive substance dependence, uncomplicated; F90.9 Attention-deficit hyperactivity disorder, unspecified type; G40.909 Epilepsy, unspecified, not intractable, without status epilepticus; K37 Unspecified appendicitis; Z04.6 Encounter for general psychiatric examination, requested by authority; Z79.899 Other long term (current) drug therapy; Z86.73 Personal history of transient ischemic attack (TIA), and cerebral infarction without residual deficits; Z87.891 Personal history of nicotine dependence; R40.2412 Glasgow coma scale score 13-15, at arrival to emergency department

== ENCOUNTER 2017-06-17 11:53 | Emergency (ER) | payer MEDICAID ==
[2017-06-17 11:54] VITALS: BMI 30.9
[2017-06-17 12:20] VITALS: TEMP 98.2
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
[2017-06-17 13:32] LABS: BASO # 0.03 K/mm3 (0.0-2.0); BASO % 0.5 % (0.0-3.0); EOS # 0.1 (0.0-0.7); EOS % 2.3 % (1.5-5.0); GRAN # 3.25 (1.4-6.5); GRAN % 52.8 % (50.0-68.0); HEMATOCRIT 45.1 % (42.0-52.0); LYMPH # 2.4 (1.2-3.4); MEAN CELL VOLUME 86.4 fl (80.0-105.0); MEAN CORPUSCULAR HEMOGLOBIN 28.4 pg (25.0-35.0); MEAN CORPUSCULAR HGB CONC 32.8 g/dl (31.0-37.0); MEAN PLATELET VOLUME 10.4 fl (7.0-11.0); MONO # 0.3 (0.1-0.6); MONO % 5.4 % (1.0-6.0); RED CELL DISTRIBUTION WIDTH 13.8 % (11.5-14.5); WHITE BLOOD COUNT 6.2 10^3/ul (4.5-11.0)
[2017-06-17 13:37] LABS: ALB/GLOB RATIO 1.5 (1.1-1.8); ALKALINE PHOSPHATASE 66 U/L (38-126); ALT/SGPT 37 U/L (7-56); AST/SGOT 24 U/L (17-59); BILIRUBIN,TOTAL 0.8 mg/dL (0.2-1.3); BLOOD UREA NITROGEN 9 mg/dL (7-21); CALCIUM 9.3 mg/dL (8.4-10.5); CARBON DIOXIDE 29 mmol/L (21-33); CHLORIDE 103 mmol/L (98-107); GFR AFRICAN-AMERICAN > 60; GLUCOSE,RANDOM 92 mg/dL (70-110); SODIUM 144 mmol/L (132-148); TOTAL PROTEIN 7.6 g/dL (5.8-8.3)
[2017-06-17 13:46] LABS: URINE BILIRUBIN NEGATIVE (NEGATIVE); URINE BLOOD TRACE-INTACT (NEGATIVE); URINE GLUCOSE (UA) NEGATIVE (NEGATIVE); URINE KETONE NEGATIVE (NEGATIVE); URINE LEUKOCYTE ESTERASE NEGATIVE Leu/uL (NEGATIVE); URINE PROTEIN NEGATIVE mg/dL (<30 mg/dL); URINE UROBILINOGEN 0.2 E.U./dL (<1 E.U./dL)
[2017-06-17 13:49] LABS: URINE APPEARANCE CLEAR (CLEAR); URINE COLOR YELLOW (YELLOW)
[2017-06-17 14:00] LABS: URINE BACTERIA TRACE (NEG); URINE EPITHELIAL CELLS 0 - 2 /hpf (0-5); URINE RBC 0 - 2 /hpf (0-2); URINE WBC 0 - 2 /hpf (0-6)
[2017-06-17 23:36] VITALS: BP 129/88; PULSE 88; RESP 19; O2SAT 98
== END 2017-06-17 23:20 | disposition left against medical advice (07) ==
LOC: ED 11:53
DX: F32.9 Major depressive disorder, single episode, unspecified (principal)

== ENCOUNTER 2017-10-08 13:42 | Inpatient (IN) | payer MEDICARE, MEDICAID ==
[2017-10-08 14:33] VITALS: BMI 24.4
--- NOTE | 2017-10-08 14:38 | ED PDOC ---
Arrival/HPI - General Historian: Patient - History of Present Illness Time/Duration: Other (Earlier today) Symptom Course: Unchanged Context: Home <Jb Garcia - Last Filed: 10/08/17 21:38> <Kumar Guzman - Last Filed: 10/09/17 12:40> - General Time Seen by Provider: 10/08/17 14:03 - History of Present Illness Narrative History of Present Illness (Text): 10/08/17 14:3 A 31 year old male, with an extensive past medical history that includes multiple CVA and seizure disorder, was brought to the emergency department by EMS for psychiatric evaluation. Patient has an ongoing conflict with the mother of his 8 year old son. He reports recently being diagnosed with appendicitis. This caused him to miss his court date which lost him his shared custody. Patient went to court today and discovered his public address system mechanic gave up his rights for custody. Patient was angry due to his situation and his mother was frightened he might hurt her or himself so she called 911. On evaluation patient is cooperative and denies any somatic complaints. Patient denies any fever, chills, nausea, vomiting, abdominal pain, chest pain, shortness of breath , suicidal ideation, homicidal ideation, hallucinations or any other complaints. (Jb Garcia) Past Medical History - Provider Review Nursing Documentation Reviewed: Yes - Infectious Disease Hx of Infectious Diseases: None - Tetanus Immunization Tetanus Immunization: Unknown - Past Medical History Past Medical History: No Previous - Cardiac Hx Cardiac Disorders: No - Pulmonary Hx Respiratory Disorders: No - Neurological Hx Neurological Disorder: Yes HX Cerebrovascular Accident: Yes (left leg weakness) - HEENT Hx HEENT Disorder: No - Renal Hx Renal Disorder: No - Endocrine/Metabolic Hx Endocrine Disorders: No - Hematological/Oncological Hx Blood Disorders: No - Integumentary Hx Dermatological Disorder: No - Musculoskeletal/Rheumatological Hx Musculoskeletal Disorders: No - Gastrointestinal Hx Gastrointestinal Disorders: No - Genitourinary/Gynecological Hx Genitourinary Disorders: No - Psychiatric Hx Psychophysiologic Disorder: Yes Hx Substance Use: No - Past Surgical History Past Surgical History: Non-Contributing - Surgical History Hx Orthopedic Surgery: Yes (left hand) - Anesthesia Hx Anesthesia: Yes Hx Anesthesia Reactions: No Hx Malignant Hyperthermia: No - Suicidal Assessment Feels Threatened In Home Enviroment: No <Jb Garcia - Last Filed: 10/08/17 21:38> Family/Social History - Physician Review Nursing Documentation Reviewed: Yes Family/Social History: No Known Family HX Smoking Status: No answer Hx Alcohol Use: No (quit 6 yrs ago) Hx Substance Use: No Substance used: marijuana Hx Substance Use Treatment: No <Jb Garcia - Last Filed: 10/08/17 21:38> Allergies/Home Meds <Jb Garcia - Last Filed: 10/08/17 21:38> <Carmelita Guzmanh - Last Filed: 10/09/17 12:40> Allergies/Adverse Reactions: Allergies No Known Allergies Allergy (Verified 06/17/17 12:20) Home Medications: Home Meds Medication Instructions Recorded Confirmed Unobtainable 10/08/17 10/08/17 Review of Systems - Physician Review All systems were reviewed & negative as marked: Yes - Review of Systems Constitutional: Normal. absent: Fevers, Night Sweats Respiratory: absent: SOB Cardiovascular: absent: Chest Pain Gastrointestinal: absent: Abdominal Pain, Nausea, Vomiting Psychiatric: absent: Suicidal Ideation, Other (Homicidal ideaiton, Hallucinations) <Jb Garcia - Last Filed: 10/08/17 21:38> Physical Exam Vital Signs Reviewed: Yes Temperature: Afebrile Blood Pressure: Normal Pulse: Regular Respiratory Rate: Normal Appearance: Positive for: Well-Appearing, Non-Toxic, Comfortable, Other (Poor hygeine) Pain Distress: None Mental Status: Positive for: Alert and Oriented X 3, other (cooperative) - Systems Exam Head: Present: Atraumatic, Normocephalic Pupils: Present: PERRL Extroacular Muscles: Present: EOMI Conjunctiva: Present: Normal Mouth: Present: Moist Mucous Membranes Neck: Present: Normal Range of Motion Respiratory/Chest: Present: Clear to Auscultation, Good Air Exchange. No: Respiratory Distress, Accessory Muscle Use Cardiovascular: Present: Regular Rate and Rhythm, Normal S1, S2. No: Murmurs Abdomen: Present: Normal Bowel Sounds. No: Tenderness, Distention, Peritoneal Signs Back: Present: Normal Inspection Upper Extremity: Present: Normal Inspection. No: Cyanosis, Edema Lower Extremity: Present: Normal Inspection. No: Edema Neurological: Present: GCS=15, CN II-XII Intact, Speech Normal Skin: Present: Warm, Dry, Normal Color. No: Rashes Psychiatric: Present: Alert, Oriented x 3, Normal Insight, Normal Concentration <Jb Garcia - Last Filed: 10/08/17 21:38> Vital Signs Temp Pulse Resp BP Pulse Ox 10/09/17 11:00 98 F 73 18 122/70 99 10/09/17 07:00 97.8 F 70 16 126/70 100 10/09/17 05:00 97.8 F 79 15 127/80 99 10/09/17 03:00 97.5 F L 74 16 122/75 98 10/09/17 01:00 98.7 F 75 16 127/77 94 L 10/08/17 23:00 98.6 F 72 18 127/77 98 10/08/17 21:00 97.9 F 78 16 138/81 95 10/08/17 19:24 82 18 145/87 98 10/08/17 17:00 76 18 120/71 98 10/08/17 14:44 97.9 F 83 18 118/69 96 Medical Decision Making - Lab Interpretations I have reviewed the lab results: Yes <Jb Garcia - Last Filed: 10/08/17 21:38> <Kumar Guzman - Last Filed: 10/09/17 12:40> ED Course and Treatment: 10/08/17 14:44 Impression: A 31 year old male brought in for psychiatric evaluation. Patient denies any somatic complaints. He requests Xanax for his nerves. Differential Diagnosis included but are not limited to: Anxiety vs. Panic attack vs. Anger vs. Situational reaction Plan: -- Chest xray -- EKG -- Labs -- Urinalysis -- Xanax -- Reassess and disposition Progress Notes: EKG shows NSR at 79 BPM with normal rate, normal axis, normal intervals. Interpreted by me. 10/08/17 19:10 PES worker contacted family, mother and sister report they are afraid to have patient home because he is angry they called the police. Patient also threatened to kill the prosecutor and public address system mechanic. Patient is actively homicidal and will be placed on 1-1 observation. Patient refusing voluntary psych admission. Plan is to have patient evaluated by a [facility] screener for involuntary psych admission. 10/08/17 22:[address] Toledo, pending [facility] screener. (Jb Garcia) - Lab Interpretations Lab Results: 10/08/17 14:55 10/08/17 14:55 Lab Results 10/08/17 15:43: Urine Opiates Screen Negative, Urine Methadone Screen Negative, Ur Barbiturates Screen Negative, Ur Phencyclidine Scrn Negative, Ur Amphetamines Screen Negative, U Benzodiazepines Scrn Positive, U Oth Cocaine Metabols Negative, U Cannabinoids Screen Negative 10/08/17 15:43: Urine Color Light yellow, Urine Appearance Clear, Urine pH 6.5, Ur Specific [place] 1.010, Urine Protein Negative, Urine Glucose (UA) Negative, Urine Ketones Negative, Urine Blood Negative, Urine Nitrate Negative, Urine Bilirubin Negative, Urine Urobilinogen 0.2, Ur Leukocyte Esterase Negative 10/08/17 14:55: Alcohol, Quantitative < 10 10/08/17 14:55: Salicylates < 1 L, Acetaminophen < 10.0 L 10/08/17 14:55: Sodium 138, Potassium 3.5 L, Chloride 102, Carbon Dioxide 27, Anion Gap 13, BUN 7, Creatinine 0.8, Est GFR ( Amer) > 60, Est GFR (Non- Af Amer) > 60, Random Glucose 89, Calcium 9.0, Total Bilirubin 0.5, AST 22, ALT 25, Alkaline Phosphatase 72, Total Protein 6.9, Albumin 3.9, Globulin 2.9, Albumin/Globulin Ratio 1.3 10/08/17 14:55: WBC 6.4, RBC 4.72, Hgb 13.4 L, Hct 40.4 L, MCV 85.6, MCH 28.4, MCHC 33.2, RDW 14.1, Plt Count 135, MPV 10.3, Gran % 64.2, Lymph % (Auto) 28.7, [place] % (Auto) 5.0, Eos % (Auto) 1.6, Baso % (Auto) 0.5, Gran # 4.14, Lymph # ( Auto) 1.9, [place] # (Auto) 0.3, Eos # (Auto) 0.1, Baso # (Auto) 0.03 - RAD Interpretation Radiology Orders: 10/08/17 14:33 CHEST PORTABLE [RAD] Stat - Medication Orders Current Medication Orders: Lorazepam (Ativan) 2 mg IM TID PRN; Protocol PRN Reason: severe agitation Ziprasidone (Geodon Inj) 20 mg IM TID PRN; Protocol PRN Reason: severe agitation Discontinued Medications Alprazolam (Xanax) 1 mg PO STAT STA PRN Reason: Protocol Stop: 10/08/17 14:36 Last Admin: 10/08/17 16:38 Dose: 1 mg Alprazolam (Xanax) 1 mg PO ONCE ONE PRN Reason: Protocol Stop: 10/08/17 22:26 Last Admin: 10/08/17 22:53 Dose: 1 mg Lorazepam (Ativan) 2 mg PO ONCE ONE PRN Reason: Protocol Stop: 10/09/17 07:01 Last Admin: 10/09/17 07:36 Dose: 2 mg - Scribe Statement The provider has reviewed the documentation as recorded by the Scribe <Jb Garcia - Last Filed: 10/08/17 21:38> <Kumar Guzman - Last Filed: 10/09/17 12:40> - Scribe Statement Tiffanie Orantes training under Whitney Castro Provider Scribe Attestation: All medical record entries made by the Scribe were at my direction and personally dictated by me. I have reviewed the chart and agree that the record accurately reflects my personal performance of the history, physical exam, medical decision making, and the department course for this patient. I have also personally directed, reviewed, and agree with the discharge instructions and disposition. (Jb Garcia) Disposition/Present on Arrival - Present on Arrival History of DVT/PE: No History of Uncontrolled Diabetes: No Urinary Catheter: No History Surgical Site Infection Following: None <Jb Garcia - Last Filed: 10/08/17 21:38> - Present on Arrival Any Indicators Present on Arrival: No - Disposition Have Diagnosis and Disposition been Completed?: Yes Disposition Time: 12:40 Patient Plan: Admission <Kumar Guzman - Last Filed: 10/09/17 12:40> - Disposition Diagnosis: Major depressive disorder Disposition: HOSPITALIZED Condition: STABLE Referrals: Alicia Juan MD [Primary Care Provider] - Follow up with primary
[2017-10-08 15:09] LABS: BASO # 0.03 K/mm3 (0.0-2.0); BASO % 0.5 % (0.0-3.0); EOS # 0.1 (0.0-0.7); EOS % 1.6 % (1.5-5.0); GRAN # 4.14 (1.4-6.5); GRAN % 64.2 % (50.0-68.0); HEMOGLOBIN 13.4 g/dL (14.0-18.0); LYMPH # 1.9 (1.2-3.4); LYMPH % 28.7 % (22.0-35.0); MEAN CELL VOLUME 85.6 fl (80.0-105.0); MEAN CORPUSCULAR HEMOGLOBIN 28.4 pg (25.0-35.0); MEAN CORPUSCULAR HGB CONC 33.2 g/dl (31.0-37.0); MEAN PLATELET VOLUME 10.3 fl (7.0-11.0); MONO # 0.3 (0.1-0.6); RBC 4.72 10^6/uL (3.5-6.1); RED CELL DISTRIBUTION WIDTH 14.1 % (11.5-14.5); WHITE BLOOD COUNT 6.4 10^3/ul (4.5-11.0)
[2017-10-08 15:19] LABS: ACETAMINOPHEN < 10.0 ug/ml (10.0-20.0); ALB/GLOB RATIO 1.3 (1.1-1.8); ALBUMIN 3.9 g/dL (3.0-4.8); ALT/SGPT 25 U/L (7-56); AST/SGOT 22 U/L (17-59); BLOOD UREA NITROGEN 7 mg/dL (7-21); GFR AFRICAN-AMERICAN > 60; GFR NON-AFRICAN AMERICAN > 60; SALICYLATE < 1 mg/dL (2.0-20.0)
[2017-10-08 18:11] LABS: PH,URINE 6.5 (4.7-8.0); URINE APPEARANCE CLEAR (CLEAR); URINE BILIRUBIN NEGATIVE (NEGATIVE); URINE BLOOD NEGATIVE (NEGATIVE); URINE COLOR LIGHT YELLOW (YELLOW); URINE GLUCOSE (UA) NEGATIVE (NEGATIVE); URINE LEUKOCYTE ESTERASE NEGATIVE Leu/uL (NEGATIVE); URINE NITRATE NEGATIVE (NEGATIVE); URINE PROTEIN NEGATIVE mg/dL (<30 mg/dL); URINE UROBILINOGEN 0.2 E.U./dL (<1 E.U./dL)
[2017-10-08 18:17] LABS: BARBITURATES, UR NEGATIVE (NEGATIVE); BENZODIAZEPINES, UR POSITIVE (NEGATIVE); OPIATES, UR NEGATIVE (NEGATIVE); PHENCYCLIDINE, UR NEGATIVE (NEGATIVE)
--- NOTE | 2017-10-08 22:42 | ED PDOC ---
Physical Exam Vital Signs Reviewed: Yes Vital Signs Temp Pulse Resp BP Pulse Ox 10/09/17 01:00 98.7 F 75 16 127/77 94 L 10/08/17 23:00 98.6 F 72 18 127/77 98 10/08/17 21:00 97.9 F 78 16 138/81 95 10/08/17 19:24 82 18 145/87 98 10/08/17 17:00 76 18 120/71 98 10/08/17 14:44 97.9 F 83 18 118/69 96 Temperature: Afebrile Blood Pressure: Normal Pulse: Regular Respiratory Rate: Normal Appearance: Positive for: Well-Appearing, Non-Toxic, Comfortable Pain Distress: None Mental Status: Positive for: Alert and Oriented X 3 Medical Decision Making ED Course and Treatment: 10/08/17 22:41: Patient endorsed to me by Dr. Garcia, pending [facility] screening, reassessment and disposition. 10/09/17 03:15: Patient pending [facility] screening. PES worker will follow- up with [facility]. endorsed dr ibll walker - Lab Interpretations Lab Results: 10/08/17 14:55 10/08/17 14:55 Lab Results 10/08/17 15:43: Urine Opiates Screen Negative, Urine Methadone Screen Negative, Ur Barbiturates Screen Negative, Ur Phencyclidine Scrn Negative, Ur Amphetamines Screen Negative, U Benzodiazepines Scrn Positive, U Oth Cocaine Metabols Negative, U Cannabinoids Screen Negative 10/08/17 15:43: Urine Color Light yellow, Urine Appearance Clear, Urine pH 6.5, Ur Specific [place] 1.010, Urine Protein Negative, Urine Glucose (UA) Negative, Urine Ketones Negative, Urine Blood Negative, Urine Nitrate Negative, Urine Bilirubin Negative, Urine Urobilinogen 0.2, Ur Leukocyte Esterase Negative 10/08/17 14:55: Alcohol, Quantitative < 10 10/08/17 14:55: Salicylates < 1 L, Acetaminophen < 10.0 L 10/08/17 14:55: Sodium 138, Potassium 3.5 L, Chloride 102, Carbon Dioxide 27, Anion Gap 13, BUN 7, Creatinine 0.8, Est GFR ( Amer) > 60, Est GFR (Non- Af Amer) > 60, Random Glucose 89, Calcium 9.0, Total Bilirubin 0.5, AST 22, ALT 25, Alkaline Phosphatase 72, Total Protein 6.9, Albumin 3.9, Globulin 2.9, Albumin/Globulin Ratio 1.3 10/08/17 14:55: WBC 6.4, RBC 4.72, Hgb 13.4 L, Hct 40.4 L, MCV 85.6, MCH 28.4, MCHC 33.2, RDW 14.1, Plt Count 135, MPV 10.3, Gran % 64.2, Lymph % (Auto) 28.7, [place] % (Auto) 5.0, Eos % (Auto) 1.6, Baso % (Auto) 0.5, Gran # 4.14, Lymph # ( Auto) 1.9, [place] # (Auto) 0.3, Eos # (Auto) 0.1, Baso # (Auto) 0.03 - RAD Interpretation Radiology Orders: 10/08/17 14:33 CHEST PORTABLE [RAD] Stat - Medication Orders Current Medication Orders: Discontinued Medications Alprazolam (Xanax) 1 mg PO STAT STA PRN Reason: Protocol Stop: 10/08/17 14:36 Last Admin: 10/08/17 16:38 Dose: 1 mg Alprazolam (Xanax) 1 mg PO ONCE ONE PRN Reason: Protocol Stop: 10/08/17 22:26 Last Admin: 10/08/17 22:53 Dose: 1 mg Disposition/Present on Arrival - Present on Arrival Any Indicators Present on Arrival: No History of DVT/PE: No History of Uncontrolled Diabetes: No Urinary Catheter: No History of Decub. Ulcer: No History Surgical Site Infection Following: None - Disposition Have Diagnosis and Disposition been Completed?: Yes Diagnosis: Major depressive disorder Disposition: HOSPITALIZED Disposition Time: 07:00 Patient Problems: Current Active Problems Problem Status Onset Major depressive disorder Acute Condition: STABLE
--- NOTE | 2017-10-09 08:30 | RAD ---
HISTORY: medical clearance for psych COMPARISON: Portable chest 06/03/2017. FINDINGS: LUNGS: No active pulmonary disease. PLEURA: No significant pleural effusion identified, no pneumothorax apparent. CARDIOVASCULAR: Normal. OSSEOUS STRUCTURES: No significant abnormalities. VISUALIZED UPPER ABDOMEN: Normal. OTHER FINDINGS: None. IMPRESSION: No interval acute cardiopulmonary disease appreciated.
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
--- NOTE | 2017-10-09 10:04 | CARD ---
APPROVED REPORT EKG Measurement Heart [id number] <Conclusion> Normal sinus rhythm RVCD LVH by voltage No change
[2017-10-09 11:42] VITALS: O2SAT 99
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
[2017-10-10 08:44] LABS: GLUCOSE,FASTING 97 mg/dL (65-110); HDL CHOLESTEROL 35 mg/dL (29-60)
[2017-10-10 08:54] LABS: LDL CHOLESTEROL 177 mg/dL (0-129)
[2017-10-10 09:10] LABS: FREE T4 0.95 ng/dL (0.78-2.19)
--- NOTE | 2017-10-10 09:48 | PCM.PYCHPN ---
Psychiatric Progress Note - Psychiatric Progress Note Patient seen today, length of contact: 25 MIN Patient Chief Complaint: "my mood sucks" Problems Identified/Issues Discussed: I reviewed patients assessment, recent notes and addendums. Patient was interviewed in the hallway. He is groomed, alert and well-oriented to circumstances. Cooperative with questioning and focus is good. Patient reports that his mood "sucks" and indicates he has chronic back and leg pain. Affect is labile and reactive. Responses are goal directed and relevant to questioning. He continues to deny having any thoughts to harm his ex- or his publication manager. He states "I was just angry, if I really wanted to harm them I could have done so already" Patient tolerating his medications and denies any new side effects, discomfort or pain. He reports that he slept well last night. He doesn't appear to be in any physical distress. Staff notes indicate the patient has been calm and cooperative. He is visible and socializes appropriately with select patients. There were no behavioral issues overnight Diagnostic Results: r/o MDD r/o antisocial/borderline personality disorder Mental Status Examination - Cognitive Function Orientation: Person, Place, Situation, Time Attention: WNL - Mood Mood: Depressed ( "sucks"), Anxious ("I am anxious because what have happend to my son") - Affect Affect: Constricted (reactive at times), Other (labile) - Speech Speech: Appropriate - Formal Thought Process Formal Thought Process: No Impairment - Suicidal Ideation Suicidal Ideation: No - Homicidal Ideation Homicidal Ideation: No Goal/Treatment Plan - Goal/Treatment Plan Progress Toward Problem(s) and Goals/Treatment Plan: c/w current tx and plan Vitals reviewed and noted below: Selected Entries 10/10/17 07:46 Temperature 97.3 F L Pulse Rate 93 H Respiratory 20 Rate Blood Pressure 118/90 New weekend labs thus far 10/10/17 10/10/17 07:00 07:00 Fasting Glucose 97 Triglycerides 115 Cholesterol 229 H LDL Cholesterol Direct 177 H HDL Cholesterol 35 Free T4 0.95 TSH 3rd Generation 0.74
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
[2017-10-10] MEDS ORDERED: Potassium Chloride 20 mEq ER Tab PO ONE (12:42)
[2017-10-10] MEDS ORDERED: Alum-Mag Hydrox-Simethicone Susp (30 mL) PO PRN (20:34)
[2017-10-10] MEDS ORDERED: Magnesium Hydroxide Susp 30 ml UD PO PRN (20:34)
--- NOTE | 2017-10-11 11:54 | PCM.PYCHPN ---
Psychiatric Progress Note - Psychiatric Progress Note Patient seen today, length of contact: 25 MIN Patient Chief Complaint: "okay" Problems Identified/Issues Discussed: I reviewed patients recent notes and met with patient in the dayroom. He is groomed, alert and well-oriented to circumstances. Cooperative with questioning and focus is good. Patient reports that his mood is "okay" today. Still complains of chronic back and leg pain, unchanged. Affect is labile and fairly reactive. Responses are goal directed and relevant to questioning. He continues to deny having any thoughts to harm his ex- or his public information coordinator. Denies anger or paranoia. Patient tolerating his medications and denies any new side effects, discomfort or pain. He reports that he slept a little better last night. He doesn't appear to be in any acute physical distress. Staff notes indicate the patient has been calm and cooperative. He is visible and socializes appropriately with select patients. Follows rules and directions. There were no behavioral issues over the weekend. Diagnostic Results: r/o MDD r/o antisocial/borderline personality disorder Mental Status Examination - Cognitive Function Orientation: Person, Place, Situation, Time Attention: WNL - Mood Mood: Depressed ( "okay"), Anxious ("I am anxious because what have happend to my son") - Affect Affect: Constricted (reactive at times), Other (labile) - Speech Speech: Appropriate - Formal Thought Process Formal Thought Process: No Impairment - Suicidal Ideation Suicidal Ideation: No - Homicidal Ideation Homicidal Ideation: No Goal/Treatment Plan - Goal/Treatment Plan Progress Toward Problem(s) and Goals/Treatment Plan: c/w current tx and plan Appreciate f/u by Dr. Garza on 10/10/17~signed off Vitals reviewed and noted below: Selected Entries 10/11/17 07:22 Temperature 97.1 F L Pulse Rate 84 Respiratory 20 Rate Blood Pressure 123/81 New weekend labs thus far 10/10/17 10/10/17 07:00 07:00 Fasting Glucose 97 Triglycerides 115 Cholesterol 229 H LDL Cholesterol Direct 177 H HDL Cholesterol 35 Free T4 0.95 TSH 3rd Generation 0.74
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
--- NOTE | 2017-10-17 10:31 | PCM.PYCHPN ---
Psychiatric Progress Note - Psychiatric Progress Note Patient seen today, length of contact: 25 min Patient Chief Complaint: "good, better" Problems Identified/Issues Discussed: I reviewed patients recent notes and met with patient at bedside. He is familiar to me from prior interviews last weekend. Remains groomed, alert and well-oriented to circumstances. Cooperative with questioning and focus is good. Patient reports that his mood is "good, better" today. Still complains of chronic back and leg pain, unchanged. Affect is calmer than last weekend, remains appropriately reactive. Responses are goal directed and relevant to questioning. He continues to deny having any thoughts to harm himself, his ex- or his registered public surveyor. Denies anger or paranoia. Patient tolerating his medications and denies any new side effects, discomfort or pain. He reports that he slept well last night. He doesn't appear to be in any acute physical distress. Staff notes indicate the patient has been calm and cooperative. He is visible, socializes and can be helpful with other patients. Goes to groups and follows rules and directions. No evidence of aggression, threats or agitation. There were no behavioral issues overnight. Diagnostic Results: r/o adjustment disorder with depressed and anxious mood r/o mdd r/ substance induced mood disorder Medication Change: Yes (vistaril started) Medical Record Reviewed: Yes Mental Status Examination - Cognitive Function Orientation: Person, Place, Situation, Time Memory: Intact Attention: WNL Concentration: WNL Association: WNL Fund of Knowledge: WNL - Mood Mood: Depressed ( "good, better"), Anxious - Affect Affect: Constricted (more reactive) - Speech Speech: Appropriate - Formal Thought Process Formal Thought Process: No Impairment - Suicidal Ideation Suicidal Ideation: No - Homicidal Ideation Homicidal Ideation: No Goal/Treatment Plan - Goal/Treatment Plan Need for Continued Stay: Remain at risks for inpatient hospitalization, Severe depression anxiety, Discharge may exacerbated symptoms, Failed transitioning, Severe functional impairment Progress Toward Problem(s) and Goals/Treatment Plan: c/w current tx and plan No new weekend labs thus far Vitals reviewed and noted below: 10/16/17 10/16/17 07:46 15:00 Temperature 98.1 F Pulse Rate 68 71 Respiratory 20 Rate Blood Pressure 101/62 129/82 Estimated Date of D/C: 10/21/17
--- NOTE | 2017-10-18 10:48 | PCM.PYCHPN ---
Psychiatric Progress Note - Psychiatric Progress Note Patient seen today, length of contact: 25 min Patient Chief Complaint: "okay" Problems Identified/Issues Discussed: I reviewed patients recent notes and met with patient at bedside. He is groomed , alert and well-oriented to circumstances. Cooperative with questioning and focus is fair. Patient seems a little disengaged with questioning today. He reports that his mood is "okay". He denies any new concerns. Affect remains calmer and fairly reactive. Responses are goal directed and relevant to questioning. He continues to deny having any thoughts to harm his ex-, public health policy analyst or himself. Denies anger or paranoia. Patient tolerating his medications and denies any new side effects, discomfort or pain. He reports that he slept last night. He doesn't appear to be in any acute physical distress. Staff notes indicate the patient has been calm and cooperative. He is visible and socializes appropriately with select patients. Follows rules and directions. There were no behavioral issues over the weekend. Diagnostic Results: r/o adjustment disorder with depressed and anxious mood r/o mdd r/ substance induced mood disorder Medication Change: Yes (vistaril started) Medical Record Reviewed: Yes Mental Status Examination - Cognitive Function Orientation: Person, Place, Situation, Time Memory: Intact Attention: WNL Concentration: WNL Association: WNL Fund of Knowledge: WNL - Mood Mood: Depressed ("okay"), Anxious - Affect Affect: Constricted (more reactive) - Speech Speech: Appropriate - Formal Thought Process Formal Thought Process: No Impairment - Suicidal Ideation Suicidal Ideation: No - Homicidal Ideation Homicidal Ideation: No Goal/Treatment Plan - Goal/Treatment Plan Need for Continued Stay: Remain at risks for inpatient hospitalization, Severe depression anxiety, Discharge may exacerbated symptoms, Failed transitioning, Severe functional impairment Progress Toward Problem(s) and Goals/Treatment Plan: c/w current tx and plan No new weekend labs Vitals reviewed and noted below: 10/18/17 07:51 Temperature 98.1 F Pulse Rate 51 L Respiratory 20 Rate Blood Pressure 91/56 L Estimated Date of D/C: 10/21/17
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
[2017-10-21 07:23] VITALS: RESP 20
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
[2017-10-22 07:15] VITALS: BP 101/60; PULSE 55; TEMP 98.3
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
== END 2017-10-22 16:04 | disposition home or self-care (01) | DRG 881 ==
LOC: ED 13:42 → ERH 10-09 12:45 → PSYC 10-09 13:19
PROVIDERS: ADMIT Psychiatry & Neurology Psychiatry; ATTEND Psychiatry & Neurology Psychiatry
DX: F32.9 Major depressive disorder, single episode, unspecified (principal); I50.9 Heart failure, unspecified; I69.354 Hemiplegia and hemiparesis following cerebral infarction affecting left non-dominant side; G40.909 Epilepsy, unspecified, not intractable, without status epilepticus; F17.210 Nicotine dependence, cigarettes, uncomplicated; F19.94 Other psychoactive substance use, unspecified with psychoactive substance-induced mood disorder; F41.9 Anxiety disorder, unspecified; F60.9 Personality disorder, unspecified; G89.29 Other chronic pain; R45.850 Homicidal ideations; Z79.891 Long term (current) use of opiate analgesic; Z79.899 Other long term (current) drug therapy; Z81.8 Family history of other mental and behavioral disorders; Z91.14 Patient's other noncompliance with medication regimen; E87.6 Hypokalemia; E78.00 Pure hypercholesterolemia, unspecified; Z90.49 Acquired absence of other specified parts of digestive tract

== ENCOUNTER 2017-10-30 19:19 | Emergency (ER) | payer MEDICARE, MEDICAID ==
[2017-10-30 19:19] VITALS: BMI 24.4
[2017-10-30 19:49] VITALS: TEMP 98.1; O2SAT 100
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
[2017-10-30 21:29] LABS: URINE BILIRUBIN SMALL (NEGATIVE); URINE BLOOD SMALL (NEGATIVE); URINE GLUCOSE (UA) NEGATIVE (NEGATIVE); URINE LEUKOCYTE ESTERASE NEGATIVE Leu/uL (NEGATIVE); URINE PROTEIN 30 mg/dL (<30 mg/dL); URINE UROBILINOGEN 0.2 E.U./dL (<1 E.U./dL)
[2017-10-30 21:38] LABS: URINE APPEARANCE SL CLOUDY (CLEAR); URINE COLOR YELLOW (YELLOW)
[2017-10-30 21:40] LABS: BASO # 0.01 K/mm3 (0.0-2.0); BASO % 0.1 % (0.0-3.0); GRAN # 14.24 (1.4-6.5); GRAN % 82.7 % (50.0-68.0); HEMOGLOBIN 16.7 g/dL (14.0-18.0); LYMPH # 2.2 (1.2-3.4); MEAN CELL VOLUME 83.9 fl (80.0-105.0); MEAN CORPUSCULAR HEMOGLOBIN 29.1 pg (25.0-35.0); MEAN CORPUSCULAR HGB CONC 34.7 g/dl (31.0-37.0); MEAN PLATELET VOLUME 10.2 fl (7.0-11.0); MONO # 0.7 (0.1-0.6); MONO % 4.2 % (1.0-6.0); RBC 5.73 10^6/uL (3.5-6.1); RED CELL DISTRIBUTION WIDTH 14.7 % (11.5-14.5); WHITE BLOOD COUNT 17.2 10^3/ul (4.5-11.0)
[2017-10-30 21:43] LABS: URINE EPITHELIAL CELLS 0 - 2 /hpf (0-5)
[2017-10-30 21:44] LABS: URINE BACTERIA FEW (NEG)
[2017-10-30 21:45] LABS: ALB/GLOB RATIO 1.3 (1.1-1.8); ALBUMIN 4.6 g/dL (3.0-4.8); ALT/SGPT 17 U/L (7-56); AST/SGOT 28 U/L (17-59); BLOOD UREA NITROGEN 13 mg/dL (7-21); CALCIUM 9.9 mg/dL (8.4-10.5); GFR AFRICAN-AMERICAN > 60; GFR NON-AFRICAN AMERICAN > 60
[2017-10-30 21:48] LABS: PHENCYCLIDINE, UR NEGATIVE (NEGATIVE)
[2017-10-30 21:54] LABS: BARBITURATES, UR NEGATIVE (NEGATIVE); BENZODIAZEPINES, UR POSITIVE (NEGATIVE); OPIATES, UR NEGATIVE (NEGATIVE)
[2017-10-30] MEDS ORDERED: Sodium Chloride 0.9% 2,000 ML IV STA (22:15)
[2017-10-31 03:22] LABS: BASO # 0.01 K/mm3 (0.0-2.0); BASO % 0.1 % (0.0-3.0); EOS % 0.1 % (1.5-5.0); GRAN # 14.18 (1.4-6.5); GRAN % 81.7 % (50.0-68.0); HEMOGLOBIN 15.8 g/dL (14.0-18.0); LYMPH # 2.2 (1.2-3.4); LYMPH % 12.6 % (22.0-35.0); MEAN CELL VOLUME 83.5 fl (80.0-105.0); MEAN CORPUSCULAR HGB CONC 34.8 g/dl (31.0-37.0); MEAN PLATELET VOLUME 9.7 fl (7.0-11.0); MONO % 5.5 % (1.0-6.0); RBC 5.44 10^6/uL (3.5-6.1); RED CELL DISTRIBUTION WIDTH 14.8 % (11.5-14.5); WHITE BLOOD COUNT 17.3 10^3/ul (4.5-11.0)
[2017-10-31 06:33] VITALS: BP 128/82; PULSE 89; RESP 18
--- NOTE | 2017-10-31 09:53 | RAD ---
HISTORY: psych COMPARISON: 10/08/2017 FINDINGS: LUNGS: No active pulmonary disease. PLEURA: No significant pleural effusion identified, no pneumothorax apparent. CARDIOVASCULAR: Normal. OSSEOUS STRUCTURES: No significant abnormalities. VISUALIZED UPPER ABDOMEN: Normal. OTHER FINDINGS: None. IMPRESSION: No active disease. No significant interval change compared to the prior examination(s).
--- NOTE | 2017-10-31 16:51 | CARD ---
APPROVED REPORT EKG Measurement Heart [id number] <Conclusion> Sinus rhythm with marked sinus arrhythmia Possible Left atrial enlargement Borderline ECG
== END 2017-10-31 06:35 | disposition home or self-care (01) ==
LOC: ED 19:19
DX: G40.909 Epilepsy, unspecified, not intractable, without status epilepticus (principal); R31.9 Hematuria, unspecified; F32.9 Major depressive disorder, single episode, unspecified; Z59.0 Homelessness
CPT/HCPCS: 71045; 80053; 81001; 85025; 93005; 99285; G0480; J7040

== ENCOUNTER 2017-10-31 08:51 | Emergency (ER) | payer MEDICARE, MEDICAID ==
[2017-10-31 08:52] VITALS: BMI 24.4
[2017-10-31 09:18] VITALS: BP 134/88; PULSE 75; RESP 18; TEMP 97.6; O2SAT 98
--- NOTE | 2017-10-31 09:30 | ED PDOC ---
Arrival/HPI - General Chief Complaint: Psychiatric Evaluation Time Seen by Provider: 10/31/17 09:06 Historian: Patient - History of Present Illness Narrative History of Present Illness (Text): 10/31/17 09:27 31yo male with PMHx of seizure present with complaint of homelessness. Patient states he was discharged from the hospital today and was thrown out of his mother's house two weeks ago. States he was given a senior living list, but nothing local. He denies SI/HI, any somatic complaint. Past Medical History - Provider Review Nursing Documentation Reviewed: Yes - Infectious Disease Hx of Infectious Diseases: None - Tetanus Immunization Tetanus Immunization: Unknown - Past Medical History Past Medical History: No Previous - Cardiac Hx Cardiac Disorders: No - Pulmonary Hx Respiratory Disorders: No - Neurological Hx Neurological Disorder: Yes HX Cerebrovascular Accident: Yes (left leg weakness) Hx Seizures: Yes - HEENT Hx HEENT Disorder: No - Renal Hx Renal Disorder: No - Endocrine/Metabolic Hx Endocrine Disorders: No - Hematological/Oncological Hx Blood Disorders: No - Integumentary Hx Dermatological Disorder: No - Musculoskeletal/Rheumatological Hx Musculoskeletal Disorders: No - Gastrointestinal Hx Gastrointestinal Disorders: No - Genitourinary/Gynecological Hx Genitourinary Disorders: No - Psychiatric Hx Anxiety: Yes Hx Depression: Yes Hx Substance Use: Yes (weed) - Past Surgical History Past Surgical History: Non-Contributing - Surgical History Hx Orthopedic Surgery: Yes (left hand) Other/Comment: sepsis seconadary to appendicitis - Anesthesia Hx Anesthesia: Yes Hx Anesthesia Reactions: No Hx Malignant Hyperthermia: No - Suicidal Assessment Feels Threatened In Home Enviroment: No Family/Social History - Physician Review Nursing Documentation Reviewed: Yes Family/Social History: Unknown Family HX Smoking Status: No answer Hx Alcohol Use: Yes Hx Substance Use: Yes (weed) Substance used: marijuana Hx Substance Use Treatment: No Allergies/Home Meds Allergies/Adverse Reactions: Allergies No Known Allergies Allergy (Verified 10/31/17 09:18) Home Medications: Home Meds Medication Instructions Recorded Confirmed No Known Home Med 10/31/17 10/31/17 Review of Systems - Physician Review All systems were reviewed & negative as marked: Yes - Review of Systems Constitutional: Normal, Other (Homelessness) Eyes: Normal ENT: Normal Respiratory: Normal Cardiovascular: Normal Gastrointestinal: Normal Genitourinary Male: Normal Musculoskeletal: Normal Skin: Normal Neurological: Normal Endocrine: Normal Hemo/Lymphatic: Normal Psychiatric: Normal Physical Exam Vital Signs Reviewed: Yes Vital Signs Temp Pulse Resp BP Pulse Ox 10/31/17 09:15 97.6 F 75 18 134/88 98 Temperature: Afebrile Blood Pressure: Normal Pulse: Regular Respiratory Rate: Normal Appearance: Positive for: Well-Appearing, Non-Toxic, Comfortable Pain Distress: None Mental Status: Positive for: Alert and Oriented X 3 - Systems Exam Head: Present: Atraumatic, Normocephalic Pupils: Present: PERRL Extroacular Muscles: Present: EOMI Conjunctiva: Present: Normal Mouth: Present: Moist Mucous Membranes Neck: Present: Normal Range of Motion Respiratory/Chest: Present: Clear to Auscultation, Good Air Exchange. No: Respiratory Distress, Accessory Muscle Use Cardiovascular: Present: Regular Rate and Rhythm, Normal S1, S2. No: Murmurs Abdomen: Present: Normal Bowel Sounds. No: Tenderness, Distention, Peritoneal Signs Back: Present: Normal Inspection Upper Extremity: Present: Normal Inspection. No: Cyanosis, Edema Lower Extremity: Present: Normal Inspection. No: Edema Neurological: Present: GCS=15, CN II-XII Intact, Speech Normal Skin: Present: Warm, Dry, Normal Color. No: Rashes Psychiatric: Present: Alert, Oriented x 3, Normal Insight, Normal Concentration Medical Decision Making ED Course and Treatment: 10/31/17 18:53 Pt was given senior living list with [facility] listed. He states he will go to the [facility] He denied any somatic complaint in ED. He was not in any distress. AAO x3. Disposition/Present on Arrival - Present on Arrival Any Indicators Present on Arrival: No History of DVT/PE: No History of Uncontrolled Diabetes: No Urinary Catheter: No History of Decub. Ulcer: No History Surgical Site Infection Following: None - Disposition Have Diagnosis and Disposition been Completed?: Yes Diagnosis: Homelessness Disposition: HOME/ ROUTINE Disposition Time: 09:30 Patient Plan: Discharge Condition: STABLE Additional Instructions: Go to one of the shelters in [place] Referrals: Alicia Juan MD [Primary Care Provider] - Follow up with primary Forms: [employer] (Maori)
== END 2017-10-31 09:40 | disposition home or self-care (01) ==
LOC: ED 08:51
DX: Z59.0 Homelessness (principal); F41.9 Anxiety disorder, unspecified; F32.9 Major depressive disorder, single episode, unspecified

== ENCOUNTER 2017-10-31 22:24 | Emergency (ER) | payer MEDICARE, MEDICAID ==
[2017-10-31 22:24] VITALS: BMI 24.4
[2017-10-31 22:54] VITALS: RESP 18; TEMP 98.2
--- NOTE | 2017-10-31 23:02 | ED PDOC ---
Arrival/HPI - General Historian: Patient - History of Present Illness Time/Duration: Other (see hpi) Context: Other (homeless) <Joaquina Solomon - Last Filed: 10/31/17 22:59> <Jeremy Babb - Last Filed: 11/01/17 19:45> - General Chief Complaint: Medical Clearance Time Seen by Provider: 10/31/17 22:46 - History of Present Illness Narrative History of Present Illness (Text): 10/31/17 22:59 This 31 yo male with a pmh depression, and seizures, is brought to this ED by BLS for medical evaluation. Patient stated while walking on the street, he was picked up by ambulance. Patient stated he became homeless a couple weeks ago. Patient denies alcohol abuse, illegal drug use, SI, HI, paranoia, hallucination. Patient denies somatic complains. (Joaquina Solomon) Past Medical History - Provider Review Nursing Documentation Reviewed: Yes - Infectious Disease Hx of Infectious Diseases: None - Tetanus Immunization Tetanus Immunization: Unknown - Past Medical History Past Medical History: No Previous - Cardiac Hx Cardiac Disorders: No - Pulmonary Hx Respiratory Disorders: No - Neurological Hx Neurological Disorder: Yes HX Cerebrovascular Accident: Yes (left leg weakness) Hx Seizures: Yes - HEENT Hx HEENT Disorder: No - Renal Hx Renal Disorder: No - Endocrine/Metabolic Hx Endocrine Disorders: No - Hematological/Oncological Hx Blood Disorders: No - Integumentary Hx Dermatological Disorder: No - Musculoskeletal/Rheumatological Hx Musculoskeletal Disorders: No - Gastrointestinal Hx Gastrointestinal Disorders: No - Genitourinary/Gynecological Hx Genitourinary Disorders: No - Psychiatric Hx Anxiety: Yes Hx Depression: Yes Hx Substance Use: Yes (weed) - Past Surgical History Past Surgical History: Non-Contributing - Surgical History Hx Orthopedic Surgery: Yes (left hand) Other/Comment: sepsis seconadary to appendicitis - Anesthesia Hx Anesthesia: Yes Hx Anesthesia Reactions: No Hx Malignant Hyperthermia: No - Suicidal Assessment Feels Threatened In Home Enviroment: No <Joaquina Solomon - Last Filed: 10/31/17 22:59> Family/Social History - Physician Review Nursing Documentation Reviewed: Yes Family/Social History: Other Smoking Status: y Hx Alcohol Use: Yes Hx Substance Use: Yes (weed) Substance used: marijuana Hx Substance Use Treatment: No <Solomon,Nahim P - Last Filed: 10/31/17 22:59> Family/Social History: No Known Family HX <Jeremy Babb - Last Filed: 11/01/17 19:45> Allergies/Home Meds <Joaquina Solomon - Last Filed: 10/31/17 22:59> <Jeremy Babb - Last Filed: 11/01/17 19:45> Allergies/Adverse Reactions: Allergies No Known Allergies Allergy (Verified 10/31/17 09:18) Home Medications: Home Meds Medication Instructions Recorded Confirmed No Known Home Med 10/31/17 11/01/17 Review of Systems - Review of Systems Constitutional: Normal. absent: Fatigue, Weight Change, Fevers Eyes: Normal ENT: Normal Respiratory: Normal Cardiovascular: Normal Gastrointestinal: Normal Genitourinary Male: Normal Musculoskeletal: Normal Skin: Normal Neurological: Normal Endocrine: Normal Hemo/Lymphatic: Normal Psychiatric: Normal <Joaquina Solomon - Last Filed: 10/31/17 22:59> Physical Exam Temperature: Afebrile Blood Pressure: Normal Pulse: Regular Respiratory Rate: Normal Appearance: Positive for: Well-Appearing, Non-Toxic, Comfortable Pain Distress: None Mental Status: Positive for: Alert and Oriented X 3 - Systems Exam Head: Present: Atraumatic, Normocephalic Pupils: Present: PERRL Extroacular Muscles: Present: EOMI Conjunctiva: Present: Normal Mouth: Present: Moist Mucous Membranes Neck: Present: Normal Range of Motion, Trachea Midline. No: Meningeal Signs, MIDLINE TENDERNESS, Paraspinal Tenderness Respiratory/Chest: Present: Clear to Auscultation, Good Air Exchange. No: Respiratory Distress, Accessory Muscle Use, Wheezes, Retracting, Rhonchi Cardiovascular: Present: Regular Rate and Rhythm, Normal S1, S2. No: Murmurs Abdomen: Present: Normal Bowel Sounds. No: Tenderness, Distention, Peritoneal Signs Back: Present: Normal Inspection Upper Extremity: Present: Normal Inspection, Normal ROM. No: Cyanosis, Edema Lower Extremity: Present: Normal Inspection, Normal ROM. No: Edema Neurological: Present: GCS=15, CN II-XII Intact, Speech Normal, Motor Func Grossly Intact, Normal Sensory Function, Normal Cerebellar Funct, Gait Normal, Memory Normal Skin: Present: Warm, Dry, Normal Color. No: Rashes Psychiatric: Present: Alert, Oriented x 3, Normal Insight, Normal Concentration. No: Suicidal Ideation, Homicidal Ideation, Delusional, Hallucinations, Intoxicated <Joaquina Solomon - Last Filed: 10/31/17 22:59> Vital Signs Temp Pulse Resp BP Pulse Ox 11/01/17 05:24 71 18 121/70 98 11/01/17 03:24 67 18 120/72 99 11/01/17 00:24 72 18 126/74 99 10/31/17 22:43 98.2 F 68 18 99 - PA / LAST TURNER / Resident Statement / has reviewed & agrees with the documentation as recorded. / has examined the patient and agrees with the treatment plan. <Jeremy Babb - Last Filed: 11/01/17 19:45> Disposition/Present on Arrival - Present on Arrival History of DVT/PE: No History of Uncontrolled Diabetes: No Urinary Catheter: No History of Decub. Ulcer: No History Surgical Site Infection Following: None <Joaquina Solomon - Last Filed: 10/31/17 22:59> - Present on Arrival Any Indicators Present on Arrival: No - Disposition Have Diagnosis and Disposition been Completed?: Yes Disposition Time: 06:27 Patient Plan: Discharge <Jeremy Babb - Last Filed: 11/01/17 19:45> - Disposition Diagnosis: Homeless Disposition: HOME/ ROUTINE Condition: GOOD Additional Instructions: Follow up with out patient alf list provided Referrals: Jeff Robles, [Primary Care Provider] - Follow up with primary Forms: [employer] (Maltese)
[2017-11-01 05:54] VITALS: BP 121/70; PULSE 71; O2SAT 98
== END 2017-11-01 06:32 | disposition home or self-care (01) ==
LOC: ED 22:24
DX: Z59.0 Homelessness (principal); F41.9 Anxiety disorder, unspecified; F32.9 Major depressive disorder, single episode, unspecified

== ENCOUNTER 2017-11-01 08:27 | Emergency (ER) | payer MEDICARE, MEDICAID ==
[2017-11-01 08:27] VITALS: BMI 24.4
[2017-11-01 09:10] LABS: BASO # 0.01 K/mm3 (0.0-2.0); BASO % 0.1 % (0.0-3.0); EOS % 0.1 % (1.5-5.0); GRAN # 8.08 (1.4-6.5); GRAN % 78.6 % (50.0-68.0); HEMOGLOBIN 15.5 g/dL (14.0-18.0); LYMPH # 1.6 (1.2-3.4); LYMPH % 15.9 % (22.0-35.0); MEAN CELL VOLUME 85.2 fl (80.0-105.0); MEAN CORPUSCULAR HGB CONC 34.1 g/dl (31.0-37.0); MEAN PLATELET VOLUME 9.9 fl (7.0-11.0); MONO # 0.6 (0.1-0.6); MONO % 5.3 % (1.0-6.0); RBC 5.34 10^6/uL (3.5-6.1); WHITE BLOOD COUNT 10.3 10^3/ul (4.5-11.0)
[2017-11-01 09:26] LABS: ALB/GLOB RATIO 1.4 (1.1-1.8); ALBUMIN 4.5 g/dL (3.0-4.8); ALT/SGPT 27 U/L (7-56); AST/SGOT 26 U/L (17-59); BLOOD UREA NITROGEN 15 mg/dL (7-21); CALCIUM 9.9 mg/dL (8.4-10.5); GFR AFRICAN-AMERICAN > 60; GFR NON-AFRICAN AMERICAN > 60
[2017-11-01 09:37] LABS: ACETAMINOPHEN < 10.0 ug/ml (10.0-20.0); SALICYLATE < 1 mg/dL (2.0-20.0)
[2017-11-01 09:49] LABS: BENZODIAZEPINES, UR NEGATIVE (NEGATIVE)
[2017-11-01 10:00] LABS: BARBITURATES, UR NEGATIVE (NEGATIVE); OPIATES, UR NEGATIVE (NEGATIVE); PHENCYCLIDINE, UR NEGATIVE (NEGATIVE)
[2017-11-01 10:01] LABS: URINE BILIRUBIN SMALL (NEGATIVE); URINE BLOOD SMALL (NEGATIVE); URINE GLUCOSE (UA) NEGATIVE (NEGATIVE); URINE LEUKOCYTE ESTERASE NEGATIVE Leu/uL (NEGATIVE); URINE PROTEIN TRACE mg/dL (<30 mg/dL)
[2017-11-01 10:02] LABS: URINE APPEARANCE CLEAR (CLEAR); URINE COLOR DARK YELLOW (YELLOW)
[2017-11-01] MEDS ORDERED: Potassium Chloride 20 mEq ER Tab PO STA (10:05)
[2017-11-01 10:13] LABS: URINE RBC 0 - 2 /hpf (0-2); URINE WBC 0 - 2 /hpf (0-6)
[2017-11-01 10:14] LABS: URINE BACTERIA SMALL (NEG)
--- NOTE | 2017-11-01 10:24 | ED PDOC ---
Arrival/HPI - General Chief Complaint: Seizure Time Seen by Provider: 11/01/17 08:48 Historian: Patient - History of Present Illness Narrative History of Present Illness (Text): 11/01/17 11:02 Patient is a 31 yo male who presents to the Emergency Department today stating that "I've been having issues" and "I feel depressed". State that he was " kicked out of the house by my mom and I have no place to stay and it's making me depressed". Patient states that "I've had seizures in the past" and states " I felt a chill this morning that might have been a seizure". He reports just feeling cold and denies loss of consciousness or injury. No incontinence of urine or stool No numbness or tingling or weakness. Denies any headaches or pain or discomfort. Past Medical History - Infectious Disease Hx of Infectious Diseases: None - Tetanus Immunization Tetanus Immunization: Unknown - Past Medical History Past Medical History: No Previous - Cardiac Hx Cardiac Disorders: No - Pulmonary Hx Respiratory Disorders: No - Neurological Hx Neurological Disorder: Yes HX Cerebrovascular Accident: Yes (left leg weakness) Hx Seizures: Yes - HEENT Hx HEENT Disorder: No - Renal Hx Renal Disorder: No - Endocrine/Metabolic Hx Endocrine Disorders: No - Hematological/Oncological Hx Blood Disorders: No - Integumentary Hx Dermatological Disorder: No - Musculoskeletal/Rheumatological Hx Musculoskeletal Disorders: No - Gastrointestinal Hx Gastrointestinal Disorders: No - Genitourinary/Gynecological Hx Genitourinary Disorders: No - Psychiatric Hx Anxiety: Yes Hx Depression: Yes Hx Substance Use: Yes (weed) - Past Surgical History Past Surgical History: Non-Contributing - Surgical History Hx Orthopedic Surgery: Yes (left hand) Other/Comment: sepsis seconadary to appendicitis - Anesthesia Hx Anesthesia: Yes Hx Anesthesia Reactions: No Hx Malignant Hyperthermia: No - Suicidal Assessment Feels Threatened In Home Enviroment: No Family/Social History Family/Social History: Unknown Family HX Smoking Status: Current Some Days Smoker Hx Alcohol Use: Yes Hx Substance Use: Yes (weed) Substance used: marijuana Hx Substance Use Treatment: No Allergies/Home Meds Allergies/Adverse Reactions: Allergies No Known Allergies Allergy (Verified 10/31/17 09:18) Home Medications: Home Meds Medication Instructions Recorded Confirmed No Known Home Med 10/31/17 11/01/17 Review of Systems - Review of Systems Constitutional: absent: Fevers Respiratory: absent: SOB Cardiovascular: absent: Chest Pain Gastrointestinal: absent: Abdominal Pain Genitourinary Male: absent: Dysuria Musculoskeletal: absent: Back Pain, Neck Pain Skin: absent: Rash Neurological: Other ("felt shaky"). absent: Headache, Dizziness, Focal Weakness , Seizure Endocrine: absent: Polyuria Hemo/Lymphatic: absent: Easy Bleeding Psychiatric: Depression, Suicidal Ideation Physical Exam Vital Signs Reviewed: Yes Vital Signs Temp Pulse Resp BP Pulse Ox 11/01/17 13:18 98.7 F 76 20 126/81 98 11/01/17 12:19 84 18 142/79 98 11/01/17 08:33 98 F 99 H 20 144/84 100 11/01/17 08:27 98 F 99 H 20 144/84 100 Temperature: Afebrile Appearance: Positive for: Well-Appearing, Non-Toxic, Comfortable Pain Distress: None Mental Status: Positive for: Alert and Oriented X 3 - Systems Exam Head: Present: Atraumatic Pupils: Present: PERRL Extroacular Muscles: Present: EOMI Mouth: Present: Moist Mucous Membranes Pharnyx: No: ERYTHEMA Neck: Present: Normal Range of Motion. No: Meningeal Signs Respiratory/Chest: Present: Clear to Auscultation Cardiovascular: Present: Regular Rate and Rhythm Abdomen: No: Tenderness Back: No: CVA Tenderness, Midline Tenderness Upper Extremity: Present: NORMAL PULSES, Neurovascularly Intact. No: Cyanosis, Edema Lower Extremity: Present: NORMAL PULSES, Neurovascularly Intact. No: Edema, CALF TENDERNESS Neurological: Present: GCS=15, CN II-XII Intact, Speech Normal, Motor Func Grossly Intact, Normal Sensory Function Skin: Present: Warm Psychiatric: Present: Alert, Depressed Mood. No: Homicidal Ideation, Hallucinations, Intoxicated Medical Decision Making ED Course and Treatment: 11/01/17 11:11 Patient evaluated in the ED and found to be neurologically intact. He is ambulatory. No acute trauma noted. NOT postictal. I do not feel current symptoms TODAY consistent with seizure as he reports "feeling a little shaky" but no loss of consciousness, no fever, no neuro deficits noted, and patient was awake and aware and reports a "few seconds" of "feeling shaky". On current exam not tachycardic or tremulous. Afebrile. No acute distress. Reports multiple social stressors, and depression. Currently no hallucinations noted. Patient observed in ED and remains neurologically intact with no pain or focal deficits. He is medically cleared for PES evaluation for current exam. Patient subsequently seen and evaluated by PES worker cleared for discharge from psychiatric standpoint. Current description of symptoms are not consistent with seizures and patient is not postictal with serial exams and he also has no neuro deficits or complaints of suicidal or homicidal ideation at this time. No withdrawal symptoms noted. Denies pain or discomfort. Ambulatory in ED with steady gait, normal speech as well as ate meal without difficulty. - Lab Interpretations Lab Results: 11/01/17 08:30 11/01/17 08:30 Lab Results 11/01/17 09:20: Urine Opiates Screen Negative, Urine Methadone Screen Negative, Ur Barbiturates Screen Negative, Ur Phencyclidine Scrn Negative, Ur Amphetamines Screen Negative, U Benzodiazepines Scrn Negative, U Oth Cocaine Metabols Negative, U Cannabinoids Screen Positive H 11/01/17 09:20: Urine Color Dark yellow, Urine Appearance Clear, Urine pH 6.0, Ur Specific [place] >= 1.030, Urine Protein Trace H, Urine Glucose (UA) Negative , Urine Ketones >=80, Urine Blood Small H, Urine Nitrate Negative, Urine Bilirubin Small H, Urine Urobilinogen 1.0 H, Ur Leukocyte Esterase Negative, Urine RBC 0 - 2, Urine WBC 0 - 2, Urine Bacteria Small 11/01/17 08:30: Alcohol, Quantitative < 10 11/01/17 08:30: Salicylates < 1 L, Acetaminophen < 10.0 L 11/01/17 08:30: Sodium 145, Potassium 3.5 L, Chloride 104, Carbon Dioxide 27, Anion Gap 18, BUN 15, Creatinine 0.7 L, Est GFR ( Amer) > 60, Est GFR ( Non-Af Amer) > 60, Random Glucose 112 H, Calcium 9.9, Total Bilirubin 1.6 H, AST 26, ALT 27, Alkaline Phosphatase 79, Total Protein 7.8, Albumin 4.5, Globulin 3.3, Albumin/Globulin Ratio 1.4 11/01/17 08:30: WBC 10.3 D, RBC 5.34, Hgb 15.5, Hct 45.5, MCV 85.2, MCH 29.0, MCHC 34.1, RDW 15.0 H, Plt Count 176, MPV 9.9, Gran % 78.6 H, Lymph % (Auto) 15.9 L, [place] % (Auto) 5.3, Eos % (Auto) 0.1 L, Baso % (Auto) 0.1, Gran # 8.08 H , Lymph # (Auto) 1.6, [place] # (Auto) 0.6, Eos # (Auto) 0.0, Baso # (Auto) 0.01 - EKG Interpretation EKG Interpretation (Text): 11/01/17 11:13 EKG at 0817 normal sinus rhythm, prolonged qt Interpreted by ED Physician: Yes Type: 12 lead EKG - Medication Orders Current Medication Orders: Discontinued Medications Potassium Chloride (K-Dur 20 Meq Er Tab) 20 meq PO STAT STA Stop: 11/01/17 10:06 Last Admin: 11/01/17 10:19 Dose: 20 meq Disposition/Present on Arrival - Present on Arrival Any Indicators Present on Arrival: No History of DVT/PE: No History of Uncontrolled Diabetes: No Urinary Catheter: No History of Decub. Ulcer: No History Surgical Site Infection Following: None - Disposition Have Diagnosis and Disposition been Completed?: Yes Diagnosis: Depression Disposition: HOME/ ROUTINE Disposition Time: 13:10 Patient Plan: Discharge Condition: GOOD Discharge Instructions (ExitCare): Depression, Adult (DC) Additional Instructions: For any headaches, any chest pain, any shortness of breath, any fevers, any numbness or tingling, any unsteadiness, any new or persistent symptoms, get rechecked. Follow-up with your physicians as recommended by mental health. Return to ER for any worsening or new symptoms. Referrals: Alicia Juan MD [Primary Care Provider] - Follow up with primary Forms: [employer] (Thai)
[2017-11-01 12:20] VITALS: O2SAT 98
[2017-11-01 13:19] VITALS: BP 126/81; PULSE 76; RESP 20; TEMP 98.7
--- NOTE | 2017-11-01 22:59 | CARD ---
APPROVED REPORT EKG Measurement Heart [id number] <Conclusion> Normal sinus rhythm Prolonged QT Abnormal ECG
== END 2017-11-01 13:28 | disposition home or self-care (01) ==
LOC: ED 08:27
DX: F32.9 Major depressive disorder, single episode, unspecified (principal)
CPT/HCPCS: 80053; 81001; 85025; 90791; 93005; 99285; G0480

== ENCOUNTER 2017-11-04 09:53 | Emergency (ER) | payer MEDICARE, MEDICAID ==
[2017-11-04 09:54] VITALS: BMI 24.4
[2017-11-04 10:15] VITALS: RESP 18; TEMP 98; O2SAT 99
--- NOTE | 2017-11-04 10:41 | ED PDOC ---
Arrival/HPI - General Chief Complaint: Psychiatric Evaluation Time Seen by Provider: 11/04/17 10:09 Historian: Patient, EMS - History of Present Illness Narrative History of Present Illness (Text): 11/04/17 10:10 Denys Bueno, 31 yo male, with a pmh depression, homeless, is brought to the ED by BLS for PES evaluation. Patient stated he was sleeping on the street, when police came to talk to him. He stated to police he was feeling depress due to not having a place to sleep. Police call ambulance to bring patient to ED . Patient stated he does not have a place to sleep, and he would like to be admitted in Psych floor. Patient denies SI, or HI. Time/Duration: Other (see hpi) Context: Home Past Medical History - Provider Review Nursing Documentation Reviewed: Yes - Infectious Disease Hx of Infectious Diseases: None - Tetanus Immunization Tetanus Immunization: Unknown - Past Medical History Past Medical History: No Previous - Cardiac Hx Cardiac Disorders: No - Pulmonary Hx Respiratory Disorders: No - Neurological Hx Neurological Disorder: Yes HX Cerebrovascular Accident: Yes (left leg weakness) Hx Seizures: Yes - HEENT Hx HEENT Disorder: No - Renal Hx Renal Disorder: No - Endocrine/Metabolic Hx Endocrine Disorders: No - Hematological/Oncological Hx Blood Disorders: No - Integumentary Hx Dermatological Disorder: No - Musculoskeletal/Rheumatological Hx Musculoskeletal Disorders: No - Gastrointestinal Hx Gastrointestinal Disorders: No - Genitourinary/Gynecological Hx Genitourinary Disorders: No - Psychiatric Hx Anxiety: Yes Hx Depression: Yes Hx Substance Use: Yes (weed) - Past Surgical History Past Surgical History: Non-Contributing - Surgical History Hx Orthopedic Surgery: Yes (left hand) Other/Comment: sepsis seconadary to appendicitis - Anesthesia Hx Anesthesia: Yes Hx Anesthesia Reactions: No Hx Malignant Hyperthermia: No - Suicidal Assessment Feels Threatened In Home Enviroment: No Family/Social History - Physician Review Nursing Documentation Reviewed: Yes Family/Social History: Other (noncontributory) Smoking Status: Current Some Days Smoker Hx Alcohol Use: Yes Hx Substance Use: Yes (weed) Substance used: marijuana Hx Substance Use Treatment: No Allergies/Home Meds Allergies/Adverse Reactions: Allergies No Known Allergies Allergy (Verified 10/31/17 09:18) Home Medications: Home Meds Medication Instructions Recorded Confirmed No Known Home Med 10/31/17 11/01/17 Review of Systems - Review of Systems Constitutional: Normal. absent: Fatigue, Weight Change Eyes: Normal ENT: Normal Respiratory: Normal Cardiovascular: Normal Gastrointestinal: Normal Genitourinary Male: Normal Musculoskeletal: Normal Skin: Normal Neurological: Normal Endocrine: Normal Hemo/Lymphatic: Normal Psychiatric: Depression, Other (homeless). absent: Suicidal Ideation Physical Exam Vital Signs Temp Pulse Resp BP Pulse Ox 11/04/17 09:54 98 F 76 18 139/83 99 Temperature: Afebrile Blood Pressure: Normal Pulse: Regular Respiratory Rate: Normal Appearance: Positive for: Well-Appearing, Non-Toxic, Comfortable Pain Distress: None Mental Status: Positive for: Alert and Oriented X 3 - Systems Exam Head: Present: Atraumatic, Normocephalic Pupils: Present: PERRL Extroacular Muscles: Present: EOMI Conjunctiva: Present: Normal Mouth: Present: Moist Mucous Membranes Neck: Present: Normal Range of Motion Respiratory/Chest: Present: Clear to Auscultation, Good Air Exchange. No: Respiratory Distress, Accessory Muscle Use Cardiovascular: Present: Regular Rate and Rhythm, Normal S1, S2. No: Murmurs Abdomen: Present: Normal Bowel Sounds. No: Tenderness, Distention, Peritoneal Signs Back: Present: Normal Inspection Upper Extremity: Present: Normal Inspection. No: Cyanosis, Edema Lower Extremity: Present: Normal Inspection. No: Edema Neurological: Present: GCS=15, CN II-XII Intact, Speech Normal Skin: Present: Warm, Dry, Normal Color. No: Rashes Psychiatric: Present: Alert, Oriented x 3, Normal Insight, Normal Concentration , Other (homeless, looking for a place to sleep). No: Suicidal Ideation, Homicidal Ideation, Delusional, Hallucinations, Intoxicated Medical Decision Making ED Course and Treatment: 11/04/17 10:42 I spoke with Aly, PES screener regarding patient requesting admission for PES. I asked her if she wants me to enter new blood test order, since patient had complete work up including labs x 3 days ago. She stated not to order any labs yet, and she will come to see patient in ED immediately. 11/04/17 11:53 Aly with [facility] came to see patient. They agreed to d/c patient home. Patient was given prescription for Lexapro, and information for [facility], and mental health clinic. 11/04/17 11:54 Patient was recommended to follow up mental health clinic as out-patient. Be complaint with treatment, and apply for [facility]. To return to ED if new symptoms develops. Re-evaluation Time: 11:54 Reassessment Condition: Re-examined, Improved Disposition/Present on Arrival - Present on Arrival Any Indicators Present on Arrival: No History of DVT/PE: No History of Uncontrolled Diabetes: No Urinary Catheter: No History of Decub. Ulcer: No History Surgical Site Infection Following: None - Disposition Have Diagnosis and Disposition been Completed?: Yes Diagnosis: Anxiety and depression Disposition: HOME/ ROUTINE Disposition Time: 11:55 Patient Plan: Discharge Condition: GOOD Discharge Instructions (ExitCare): Depression, Adult (DC) Additional Instructions: Call mental health clinic as indicated by PES staff. Information is given to you with this discharge papers. Take medication as instructed by psychiatric screener (PES). Return to emergency if symptoms worsen. Referrals: Alicia Juan MD [Primary Care Provider] - Follow up with primary [facility] [Outside] - Follow up with primary [facility] [Outside] - Follow up with primary [facility] [Outside] - Follow up with primary
[2017-11-04 12:58] VITALS: BP 135/80; PULSE 75
--- NOTE | 2017-11-05 08:18 | CON ---
DATE: 11/04/2017 PRESENTATION: Patient was seen in holding room of the Emergency Room, having come to the Emergency Room wanting a refill on medication. He evidently had been found sleeping in the street. The police came to talk to him and he said he was depressed due to having no place to sleep, so the police called an ambulance and brought him to the Emergency Room. Patient indicates he is homeless and would like admission to the psychiatric floor. Patient was recently discharged from the psychiatric floor on 10/09/2017. Since that time, he has been in the [facility] ER on 10/30/2017 for seizures, 10/31/2017 for depression and psychiatric issues, 10/31/2017 again for medical clearance, 11/01/2017 for seizures and here on the 11/04, he is back for refill on medication. Patient since being discharged from the hospital found that he is homeless. His mother moved while he was in the hospital taking with her all his identity papers, his debit card and left him nothing in way of clothing or belongings. Patient has been sleeping on the street. He has been homeless and he has not been able to cope. Today when seen, patient indicates that he really just wants a place to stay. He is afraid he does not know what to do. He has ran out of medication. I discussed with the patient that we can make referral and get him to a fdc. Additionally he has missed his outpatient appointment for followup care we gave him. He can be given a referral to [facility], which is a walk-in center for psychiatric medications. I additionally spoke with him about how he plans to handle not having any money or his identity papers and patient indicates that his plan is to go the police and file a report, go to the clinic and make another appointment and go to the clinic for his methadone needs and go to the bank and try to work out with them what he needs to do to get a new debit card. He can see on his phone that his mother has not accessed any funds, she just has his card. He indicates he has been trying to do well since he left the hospital. He just has not been able to cope, he has very little support system, he only has one friend. He is very upset that his mother will not answer her phone. He does not know where she has gone and he feels if we can just find a place to live that things will be better. I pointed out to him that since he does have funds, at some point, he may be able to get in to a boarding home, evidently he receives social security benefits. Patient is not resistant to this, but needs to be able to access his funds. When patient was discharged from the psychiatric unit in September, his discharge medications were Xanax 2 mg one p.o. t.i.d., escitalopram 20 mg one p.o. daily, hydroxyzine 50 mg one p.o. b.i.d. p.r.n. and nicotine patch. Patient additionally is on Suboxone. He goes to the clinic on [address] [place] [address] for this and will be following up there. He understands I cannot give him any control medication and the policy of the ER is to get 5 days of medication and he indicated he understood this. Patient's current vital signs include temperature of 98, pulse rate of 76, blood pressure of 139/83, respiratory rate of 18 and O2 sat of 99%. There are no recent labs. Patient is medically cleared for discharge from the Emergency Room He has been here very frequently and there have been no emergent medical issues. MENTAL STATUS EXAMINATION: Patient is alert and oriented x3. His eye contact is fair. His behavior is cooperative. His speech rate and volume are within normal limits. Mood is anxious. Affect is constricted. Thoughts are goal directed, but simplistic. He denies being suicidal or homicidal. He denies the presence of hallucinations, delusions or paranoia. His concentration and focus are poor. 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 His appetite and sleep, he indicates are poor. 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 PLAN: Patient denies being suicidal or homicidal and appears in no imminent danger of hurting himself or others. He indicates his big issue is having no place to stay and he is willing to accept referrals for homeless shelters and would need a voucher to get to whatever fdc we refer him to. He additionally was given 5 days worth of medication of Lexapro 20 mg one daily and hydroxyzine 50 mg one p.o. b.i.d. He will follow up for his Suboxone at the clinic on [address] [place] [address]. He plans to follow up at [facility] for his medications shortly. He will be given a voucher and referrals to local shelters, which patient is agreeable to. Psychiatry will sign off on this patient. Thank you for the consult. Xiomara Zhou APN Alexandra Kelley MD [facility]
== END 2017-11-04 13:05 | disposition home or self-care (01) ==
LOC: ED 09:53
DX: F41.9 Anxiety disorder, unspecified (principal); F32.9 Major depressive disorder, single episode, unspecified

== ENCOUNTER 2017-11-10 18:29 | Emergency (ER) | payer MEDICARE, MEDICAID ==
[2017-11-10 18:29] VITALS: BMI 24.4
--- NOTE | 2017-11-10 18:52 | ED PDOC ---
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 Patient reports having family problems at home and states he wants to harm himself. Patient notes he has not been able to take his Xanax. Patient denies any trauma, fever, chills, nausea, vomiting, abdominal pain, chest pain, shortness of breath, homicidal ideation or any other complaints. Time/Duration: Prior to Arrival Past Medical History - Provider Review Nursing Documentation Reviewed: Yes - Infectious Disease Hx of Infectious Diseases: None - Tetanus Immunization Tetanus Immunization: Unknown - Past Medical History Past Medical History: No Previous - Cardiac Hx Cardiac Disorders: No - Pulmonary Hx Respiratory Disorders: No - Neurological Hx Neurological Disorder: Yes HX Cerebrovascular Accident: Yes (left leg weakness) Hx Seizures: Yes - HEENT Hx HEENT Disorder: No - Renal Hx Renal Disorder: No - Endocrine/Metabolic Hx Endocrine Disorders: No - Hematological/Oncological Hx Blood Disorders: No - Integumentary Hx Dermatological Disorder: No - Musculoskeletal/Rheumatological Hx Musculoskeletal Disorders: No - Gastrointestinal Hx Gastrointestinal Disorders: No - Genitourinary/Gynecological Hx Genitourinary Disorders: No - Psychiatric Hx Anxiety: Yes Hx Depression: Yes Hx Substance Use: Yes (weed) - Past Surgical History Past Surgical History: Non-Contributing - Surgical History Hx Orthopedic Surgery: Yes (left hand) Other/Comment: sepsis seconadary to appendicitis - Anesthesia Hx Anesthesia: Yes Hx Anesthesia Reactions: No Hx Malignant Hyperthermia: No - Suicidal Assessment Feels Threatened In Home Enviroment: No Family/Social History - Physician Review Nursing Documentation Reviewed: Yes Family/Social History: No Known Family HX Smoking Status: Current Some Days Smoker Hx Alcohol Use: Yes Hx Substance Use: Yes (weed) Substance used: marijuana Hx Substance Use Treatment: No Allergies/Home Meds Allergies/Adverse Reactions: Allergies No Known Allergies Allergy (Verified 11/10/17 18:41) Home Medications: Home Meds Medication Instructions Recorded Confirmed hydrOXYzine Pamoate [Vistaril] 1 cap PO DAILY 11/04/17 11/10/17 Review of Systems - Physician Review All systems were reviewed & negative as marked: Yes - Review of Systems Constitutional: absent: Fevers, Night Sweats Respiratory: absent: SOB Cardiovascular: absent: Chest Pain Gastrointestinal: absent: Abdominal Pain, Nausea, Vomiting Psychiatric: Suicidal Ideation. absent: Other (homicidal ideation) Physical Exam Vital Signs Temp Pulse Resp BP Pulse Ox 11/10/17 20:03 83 18 115/72 95 11/10/17 19:15 99 F 72 17 136/84 97 Appearance: Positive for: Well-Appearing, Non-Toxic, Comfortable Pain Distress: None Mental Status: Positive for: Alert and Oriented X 3 - Systems Exam Head: Present: Atraumatic, Normocephalic Pupils: Present: PERRL Extroacular Muscles: Present: EOMI Conjunctiva: Present: Normal Mouth: Present: Moist Mucous Membranes Neck: Present: Normal Range of Motion Respiratory/Chest: Present: Clear to Auscultation, Good Air Exchange. No: Respiratory Distress, Accessory Muscle Use Cardiovascular: Present: Regular Rate and Rhythm, Normal S1, S2. No: Murmurs Abdomen: Present: Normal Bowel Sounds. No: Tenderness, Distention, Peritoneal Signs Back: Present: Normal Inspection Upper Extremity: Present: Normal Inspection, Normal ROM, NORMAL PULSES. No: Cyanosis, Edema Lower Extremity: Present: Normal Inspection, NORMAL PULSES, Normal ROM. No: Edema Neurological: Present: GCS=15, CN II-XII Intact, Speech Normal Skin: Present: Warm, Dry, Normal Color. No: Rashes Psychiatric: Present: Alert, Oriented x 3, Suicidal Ideation Medical Decision Making ED Course and Treatment: 11/10/17 18:41 Impression: A 31 year old male with suicidal ideation. Plan is to medically clear for PES Differential Diagnosis included but are not limited to: Suicidal ideation Plan: -- PES evaluation -- Reassess and disposition Progress Notes: 11/10/17 20:10 PES cleared patient for discharge - Scribe Statement The provider has reviewed the documentation as recorded by the Estrellaibpatrica Castro Provider Scribe Attestation: All medical record entries made by the Scribe were at my direction and personally dictated by me. I have reviewed the chart and agree that the record accurately reflects my personal performance of the history, physical exam, medical decision making, and the department course for this patient. I have also personally directed, reviewed, and agree with the discharge instructions and disposition. Disposition/Present on Arrival - Present on Arrival Any Indicators Present on Arrival: No History of DVT/PE: No History of Uncontrolled Diabetes: No Urinary Catheter: No History Surgical Site Infection Following: None - Disposition Have Diagnosis and Disposition been Completed?: Yes Diagnosis: Depression Disposition: HOME/ ROUTINE Disposition Time: 20:10 Patient Plan: Discharge Condition: GOOD Additional Instructions: Follow-up with PMD within 2 days. Return to ED if condition worsens. Follow- up with psych as previously arranged
[2017-11-10 20:03] VITALS: TEMP 99
[2017-11-10 20:04] VITALS: BP 115/72; PULSE 83; RESP 18; O2SAT 95
[2017-11-10 20:18] LABS: BASO # 0.03 K/mm3 (0.0-2.0); BASO % 0.3 % (0.0-3.0); EOS # 0.4 (0.0-0.7); EOS % 3.6 % (1.5-5.0); GRAN # 6.91 (1.4-6.5); GRAN % 67.1 % (50.0-68.0); HEMOGLOBIN 15.9 g/dL (14.0-18.0); LYMPH # 2.3 (1.2-3.4); LYMPH % 22.3 % (22.0-35.0); MEAN CELL VOLUME 83.2 fl (80.0-105.0); MEAN CORPUSCULAR HEMOGLOBIN 28.5 pg (25.0-35.0); MEAN CORPUSCULAR HGB CONC 34.3 g/dl (31.0-37.0); MEAN PLATELET VOLUME 10.8 fl (7.0-11.0); MONO # 0.7 (0.1-0.6); MONO % 6.7 % (1.0-6.0); RBC 5.58 10^6/uL (3.5-6.1); RED CELL DISTRIBUTION WIDTH 14.1 % (11.5-14.5); WHITE BLOOD COUNT 10.3 10^3/ul (4.5-11.0)
[2017-11-10 20:27] LABS: ACETAMINOPHEN < 10.0 ug/ml (10.0-20.0); SALICYLATE < 1 mg/dL (2.0-20.0)
[2017-11-10 20:30] LABS: ALB/GLOB RATIO 1.3 (1.1-1.8); ALBUMIN 4.3 g/dL (3.0-4.8); ALT/SGPT 34 U/L (7-56); AST/SGOT 30 U/L (17-59); BLOOD UREA NITROGEN 20 mg/dL (7-21); CALCIUM 9.7 mg/dL (8.4-10.5); GFR AFRICAN-AMERICAN > 60; GFR NON-AFRICAN AMERICAN > 60
--- NOTE | 2017-11-11 11:25 | CARD ---
APPROVED REPORT EKG Measurement Heart [id number] MD 142P70 [id number] <Conclusion> RSR. Poor Quality EKG. Unsteady Baseline.
== END 2017-11-10 21:00 | disposition home or self-care (01) ==
LOC: ED 18:29
DX: F32.9 Major depressive disorder, single episode, unspecified (principal); F17.200 Nicotine dependence, unspecified, uncomplicated
CPT/HCPCS: 80053; 85025; 90791; 93005; 99284; G0480

== ENCOUNTER 2017-11-11 08:03 | Emergency (ER) | payer MEDICARE, MEDICAID ==
[2017-11-11 08:31] VITALS: BMI 31.4
[2017-11-11 09:25] LABS: ACETAMINOPHEN < 10.0 ug/ml (10.0-20.0); SALICYLATE < 1 mg/dL (2.0-20.0)
[2017-11-11 09:27] LABS: ALB/GLOB RATIO 1.3 (1.1-1.8); ALBUMIN 4.5 g/dL (3.0-4.8); ALT/SGPT 36 U/L (7-56); AST/SGOT 22 U/L (17-59); BLOOD UREA NITROGEN 18 mg/dL (7-21); CALCIUM 9.8 mg/dL (8.4-10.5); GFR AFRICAN-AMERICAN > 60; GFR NON-AFRICAN AMERICAN > 60
--- NOTE | 2017-11-11 09:29 | ED PDOC ---
Arrival/HPI - General Chief Complaint: Psychiatric Evaluation Time Seen by Provider: 11/11/17 08:40 Historian: Patient - History of Present Illness Narrative History of Present Illness (Text): 11/11/17 09:10 pt p/w + requesting refill for his psych/epilepsy medications; pt states + worsening depression, pt states + hallucinations (?visual/tactile), pt states no homicidal/suicidal ideations; pt states these symptoms are chronic however; pt was seen in the ED on multiple occasions, last seen yesterday; pt states he was instructed by Dr Morris to return for medication refill?; pt states no new medical complaints however; pt states no fever/chills/sweats, no new cp/sob/ palpitations, no abd pain, no n/v, no numbness/tingling; pt denied urinary/ bowel changes; pt is here for further eval; pt's without other complaints; pt also states he is homeless pt denied drug use Time/Duration: Prior to Arrival Symptom Onset: Gradual Symptom Course: Unchanged Activities at Onset: Rest Context: Other (homeless) Past Medical History - Provider Review Nursing Documentation Reviewed: Yes - Travel History Have you recently traveled outside [place] w/in the past 3 mons?: No - Past History Past History: No Previous - Infectious Disease Hx of Infectious Diseases: None - Tetanus Immunization Tetanus Immunization: Unknown - Past Medical History Past Medical History: No Previous - Cardiac Hx Cardiac Disorders: No - Pulmonary Hx Respiratory Disorders: No - Neurological Hx Neurological Disorder: Yes HX Cerebrovascular Accident: Yes (left leg weakness) Hx Seizures: Yes - HEENT Hx HEENT Disorder: No - Renal Hx Renal Disorder: No - Endocrine/Metabolic Hx Endocrine Disorders: No - Hematological/Oncological Hx Blood Disorders: No - Integumentary Hx Dermatological Disorder: No - Musculoskeletal/Rheumatological Hx Musculoskeletal Disorders: No - Gastrointestinal Hx Gastrointestinal Disorders: No - Genitourinary/Gynecological Hx Genitourinary Disorders: No - Psychiatric Hx Psychophysiologic Disorder: Yes Hx Anxiety: Yes Hx Bipolar Disorder: Yes Hx Depression: Yes Hx Schizophrenia: Yes Hx Substance Use: Yes (weed) - Past Surgical History Past Surgical History: Non-Contributing - Surgical History Hx Orthopedic Surgery: Yes (left hand) Other/Comment: sepsis seconadary to appendicitis. 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 - Anesthesia Hx Anesthesia: Yes Hx Anesthesia Reactions: No Hx Malignant Hyperthermia: No - Suicidal Assessment Feels Threatened In Home Enviroment: No Family/Social History - Physician Review Nursing Documentation Reviewed: Yes Family/Social History: No Known Family HX Smoking Status: Current Some Days Smoker Hx Alcohol Use: Yes Hx Substance Use: Yes (weed) Substance used: marijuana Hx Substance Use Treatment: No Allergies/Home Meds Allergies/Adverse Reactions: Allergies No Known Allergies Allergy (Verified 11/11/17 08:30) Home Medications: Home Meds Medication Instructions Recorded Confirmed No Known Home Med 11/11/17 11/11/17 Review of Systems - Review of Systems Constitutional: Normal Eyes: Normal ENT: Normal Respiratory: Normal Cardiovascular: Chest Pain (chronic) Gastrointestinal: Normal Genitourinary Male: Normal Musculoskeletal: Normal Skin: Normal Neurological: Normal Endocrine: Normal Hemo/Lymphatic: Normal Psychiatric: Depression. absent: Anxiety, Suicidal Ideation Physical Exam Vital Signs Reviewed: Yes Vital Signs Temp Pulse Resp BP Pulse Ox 11/11/17 10:00 98 F 82 18 126/76 99 11/11/17 08:30 80 19 138/50 L 96 Temperature: Afebrile Blood Pressure: Normal Pulse: Regular Respiratory Rate: Normal Appearance: Positive for: Well-Appearing, Other (uncomfortable, resting in bed, alert/awake, oriented x 3, follows command with ease, cooperative) Pain Distress: None Mental Status: Positive for: Alert and Oriented X 3 - Systems Exam Head: Present: Atraumatic, Normocephalic Pupils: Present: PERRL, Other (no nystagmus, no photophobia) Extroacular Muscles: Present: EOMI Conjunctiva: Present: Normal Ears: Present: Normal Mouth: Present: Moist Mucous Membranes, Other (poor dentitions, no drooling/ stridor, no exudate/lesions) Pharnyx: Present: Normal Nose (External): Present: Atraumatic Nose (Internal): Present: Normal Inspection Neck: Present: Normal Range of Motion, Trachea Midline, Other (no meningeal signs, no midline tenderness, no step off). No: MIDLINE TENDERNESS Respiratory/Chest: Present: Clear to Auscultation, Good Air Exchange, Other ( CTA b/l, no w/r/r). No: Respiratory Distress, Accessory Muscle Use Cardiovascular: Present: Regular Rate and Rhythm, Normal S1, S2. No: Murmurs, Tachycardic Abdomen: Present: Normal Bowel Sounds, Other (will nourished male, no focal tenderness, no martínez's sign, no mcburney's point tenderness, no masses/rebound/ guarding/rigidity) Back: Present: Normal Inspection Upper Extremity: Present: Normal Inspection, Normal ROM, NORMAL PULSES, Neurovascularly Intact, Capillary Refill < 2s Lower Extremity: Present: Normal Inspection, NORMAL PULSES, Normal ROM, Neurovascularly Intact, Capillary Refill < 2 s, Other (+ ambulatory, strength 5/ 5 grossly intact b/l) Neurological: Present: GCS=15, CN II-XII Intact, Speech Normal Skin: Present: Warm, Normal Color, Other (cap refill < 1sec, no ulcerations, no petechiae) Psychiatric: Present: Alert, Oriented x 3, Other (flat affect) Medical Decision Making ED Course and Treatment: 11/11/17 09:30 Impression: Psych eval i have consider all the differential diagnosis regarding pt's chief medical complaints/clinical findings, including but are not limited to: psych eval A/P: psych eval - labs - xray - ekg - observe - supportive care 11/11/17 11:16 pt is medically cleared for psych/PES eval PES evaluated patient at bedside, pt is cleared from psych, does not recommend admission; pt does have psych medications already prescribed by Dr Morris recently ; pt will f/u with outpt psych clinic pt is made aware of his medical results pt is encouraged fluid hydration pt will be arranged for [facility] placement pt is encouraged outpt f/u pt will be discharged home Re-evaluation Time: 10:56 Reassessment Condition: Unchanged - Lab Interpretations Lab Results: 11/11/17 09:00 11/11/17 09:00 Lab Results 11/11/17 09:00: Alcohol, Quantitative < 10 11/11/17 09:00: Salicylates < 1 L, Acetaminophen < 10.0 L 11/11/17 09:00: Sodium 140, Potassium 4.0, Chloride 98, Carbon Dioxide 28, Anion Gap 18, BUN 18, Creatinine 0.7 L, Est GFR ( Amer) > 60, Est GFR ( Non-Af Amer) > 60, Random Glucose 87, Calcium 9.8, Total Bilirubin 1.5 H, AST 22 , ALT 36, Alkaline Phosphatase 79, Total Protein 8.1, Albumin 4.5, Globulin 3.6 , Albumin/Globulin Ratio 1.3 11/11/17 09:00: WBC 7.5 D, RBC 5.70, Hgb 16.4, Hct 47.4, MCV 83.2, MCH 28.8, MCHC 34.6, RDW 14.0, Plt Count 157, MPV 10.6, Gran % 71.2 H, Lymph % (Auto) 20.1 L, [place] % (Auto) 6.2 H, Eos % (Auto) 2.4, Baso % (Auto) 0.1, Gran # 5.30, Lymph # (Auto) 1.5, [place] # (Auto) 0.5, Eos # (Auto) 0.2, Baso # (Auto) 0.01 I have reviewed the lab results: Yes Interpretation: All labs normal - RAD Interpretation Narrative RAD Interpretations (Text): 11/11/17 11:18 HISTORY: Medical clearance. COMPARISON: 10/30/2017. FINDINGS: LUNGS: No active pulmonary disease. PLEURA: No significant pleural effusion identified, no pneumothorax apparent. CARDIOVASCULAR: Normal. OSSEOUS STRUCTURES: No significant abnormalities. VISUALIZED UPPER ABDOMEN: Normal. OTHER FINDINGS: None. IMPRESSION: No active disease. No significant interval change compared to the prior examination(s). Radiology Orders: 11/11/17 08:59 CHEST PORTABLE [RAD] Stat 11/11/17 10:28 Chest X-ray Creator : Martin Travis MD IMPRESSION: No active disease. No significant interval change compared to the prior examination(s). Retention Manager: Radiologist - EKG Interpretation EKG Interpretation (Text): 11/11/17 11:18 NSR at 85 bpm, normal axis, no ectopy, poor baseline, no st-t changes, BORDERLINE EKG; unchanged compare with old ekg 10/2017 Interpreted by ED Physician: Yes Type: 12 lead EKG Comparison: Similar to previous EKG Disposition/Present on Arrival - Present on Arrival Any Indicators Present on Arrival: No History of DVT/PE: No History of Uncontrolled Diabetes: No Urinary Catheter: No History of Decub. Ulcer: No History Surgical Site Infection Following: None - Disposition Have Diagnosis and Disposition been Completed?: Yes Diagnosis: Encounter for medical screening examination, Depression Disposition: HOME/ ROUTINE Disposition Time: 10:56 Patient Plan: Discharge ([facility]) Patient Problems: Current Active Problems Problem Status Onset Depression Acute Encounter for medical screening examination Acute Condition: STABLE Discharge Instructions (ExitCare): Depression, Medication Safety, Adult Print Language: EQUATORIAL GUINEAN Additional Instructions: Make sure to see your doctor in 1-2 days DRINK PLENTY OF FLUIDS DONT smoke if you smoke DONT drink if you drink alcohol take your medications as prescribed RETURN TO ED IF worse pain, cant breath, persistent vomiting, high fever >101- 102 for hours, altered behavior, severe depression, suicidal/homicidal ideations , severe hallucinations; unable to urinate, heavy/persistent bleeding, passing out, chest pain, or other medical emergencies Referrals: [employer] Profile [facility], [Primary Care Provider] - Follow up with primary Forms: [employer] ([place])
[2017-11-11 09:32] LABS: BASO # 0.01 K/mm3 (0.0-2.0); BASO % 0.1 % (0.0-3.0); EOS # 0.2 (0.0-0.7); EOS % 2.4 % (1.5-5.0); GRAN # 5.3 (1.4-6.5); GRAN % 71.2 % (50.0-68.0); HEMOGLOBIN 16.4 g/dL (14.0-18.0); LYMPH # 1.5 (1.2-3.4); LYMPH % 20.1 % (22.0-35.0); MEAN CELL VOLUME 83.2 fl (80.0-105.0); MEAN CORPUSCULAR HEMOGLOBIN 28.8 pg (25.0-35.0); MEAN CORPUSCULAR HGB CONC 34.6 g/dl (31.0-37.0); MEAN PLATELET VOLUME 10.6 fl (7.0-11.0); MONO # 0.5 (0.1-0.6); MONO % 6.2 % (1.0-6.0); RBC 5.7 10^6/uL (3.5-6.1); WHITE BLOOD COUNT 7.5 10^3/ul (4.5-11.0)
--- NOTE | 2017-11-11 10:27 | RAD ---
HISTORY: Medical clearance. COMPARISON: 10/30/2017. FINDINGS: LUNGS: No active pulmonary disease. PLEURA: No significant pleural effusion identified, no pneumothorax apparent. CARDIOVASCULAR: Normal. OSSEOUS STRUCTURES: No significant abnormalities. VISUALIZED UPPER ABDOMEN: Normal. OTHER FINDINGS: None. IMPRESSION: No active disease. No significant interval change compared to the prior examination(s).
[2017-11-11 11:07] VITALS: RESP 18; TEMP 98; O2SAT 99
[2017-11-11 12:22] VITALS: BP 128/68; PULSE 76
--- NOTE | 2017-11-11 14:00 | CARD ---
APPROVED REPORT EKG Measurement Heart [id number] MS 140P80 [id number] <Conclusion> Normal sinus rhythm with sinus arrhythmia Right atrial enlargement Borderline ECG
== END 2017-11-11 13:11 | disposition home or self-care (01) ==
LOC: ED 08:03
DX: F32.9 Major depressive disorder, single episode, unspecified (principal); Z13.9 Encounter for screening, unspecified; F17.200 Nicotine dependence, unspecified, uncomplicated
CPT/HCPCS: 71045; 80053; 85025; 90791; 93005; 99283; G0480

== ENCOUNTER 2017-11-19 13:17 | Inpatient (IN) | payer MEDICARE, MEDICAID ==
[2017-11-19 13:27] VITALS: BMI 26.4
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
[2017-11-19 14:35] LABS: BASO # 0.02 K/mm3 (0.0-2.0); BASO % 0.4 % (0.0-3.0); EOS # 0.3 (0.0-0.7); EOS % 4.7 % (1.5-5.0); GRAN # 2.89 (1.4-6.5); GRAN % 51.7 % (50.0-68.0); HEMOGLOBIN 12.3 g/dL (14.0-18.0); LYMPH % 35.5 % (22.0-35.0); MEAN CORPUSCULAR HEMOGLOBIN 28.1 pg (25.0-35.0); MEAN CORPUSCULAR HGB CONC 32.3 g/dl (31.0-37.0); MEAN PLATELET VOLUME 9.6 fl (7.0-11.0); MONO # 0.4 (0.1-0.6); MONO % 7.7 % (1.0-6.0); RBC 4.38 10^6/uL (3.5-6.1); RED CELL DISTRIBUTION WIDTH 14.7 % (11.5-14.5); WHITE BLOOD COUNT 5.6 10^3/ul (4.5-11.0)
[2017-11-19 14:49] LABS: ALB/GLOB RATIO 1.2 (1.1-1.8); ALBUMIN 3.2 g/dL (3.0-4.8); ALT/SGPT 31 U/L (7-56); AST/SGOT 26 U/L (17-59); BLOOD UREA NITROGEN 11 mg/dL (7-21); CALCIUM 8.9 mg/dL (8.4-10.5); GFR AFRICAN-AMERICAN > 60; GFR NON-AFRICAN AMERICAN > 60
--- NOTE | 2017-11-19 15:03 | RAD ---
HISTORY: psych eval COMPARISON: Portable chest 11/11/2017. FINDINGS: LUNGS: No active pulmonary disease. PLEURA: No significant pleural effusion identified, no pneumothorax apparent. CARDIOVASCULAR: Normal. OSSEOUS STRUCTURES: No significant abnormalities. VISUALIZED UPPER ABDOMEN: Normal. OTHER FINDINGS: None. IMPRESSION: No interval acute cardiopulmonary disease appreciated.
[2017-11-19 15:24] LABS: URINE APPEARANCE CLEAR (CLEAR); URINE BILIRUBIN NEGATIVE (NEGATIVE); URINE BLOOD NEGATIVE (NEGATIVE); URINE COLOR COLORLESS (YELLOW); URINE GLUCOSE (UA) NEGATIVE (NEGATIVE); URINE LEUKOCYTE ESTERASE NEGATIVE Leu/uL (NEGATIVE); URINE PROTEIN NEGATIVE mg/dL (<30 mg/dL); URINE UROBILINOGEN 0.2 E.U./dL (<1 E.U./dL)
[2017-11-19 15:46] LABS: BARBITURATES, UR NEGATIVE (NEGATIVE); BENZODIAZEPINES, UR POSITIVE (NEGATIVE); OPIATES, UR NEGATIVE (NEGATIVE); PHENCYCLIDINE, UR NEGATIVE (NEGATIVE)
--- NOTE | 2017-11-19 18:17 | CARD ---
APPROVED REPORT EKG Measurement Heart [id number] DC 160P68 [id number] <Conclusion> Poor data quality, interpretation may be adversely affected Normal sinus rhythm Normal ECG
[2017-11-19 19:51] VITALS: O2SAT 99
[2017-11-19] MEDS ORDERED: Alum-Mag Hydrox-Simethicone Susp (30 mL) PO PRN (21:10)
[2017-11-19] MEDS ORDERED: Magnesium Hydroxide Susp 30 ml UD PO PRN (21:10)
--- NOTE | 2017-11-20 02:20 | PCM.BM ---
<Bennie Barraza - Last Filed: 11/20/17 02:17> Treatment Plan Problems - Problems identified on initial assessmt Hopelessness/Helplessness Date Initiated: 11/19/17 Time Initiated: 20:20 Assessment reference: NA Status: Active Priority: 1 Ineffective Coping Date Initiated: 11/19/17 Time Initiated: 20:20 Assessment reference: NA Status: Active Priority: 2 Feelings of Worthlessness Date Initiated: 11/19/17 Time Initiated: 20:20 Assessment reference: NA Status: Active Priority: 3 Altered Sleep Pattern Date Initiated: 11/19/17 Time Initiated: 20:20 Assessment reference: NA Status: Active Priority: 4 Treatment assets and liabiliti Patient Assests: adapts well, cooperative, resourceful, self-reliant, ADL independent, cognitively intact Patient Liabilities: live alone, financial problems, poor support system, relationship conflicts, substance abuse - Milieu Protocol Maintain good personal hygiene: daily Encourage regular showers, daily Remind patient to perform daily oral care, daily Assist patient to perform ADL's Conduct patient checks and document Observation sheet: Q15 minutes Maintain personal safety: every shift Educate patient to report safety concerns to staff, every shift Monitor environment for contraband/sharps Medication safety: Monitor for expected outcome, potential side effects: every shift, Assess barriers to learning: every shift, Assess readiness for medication education: every shift Discharge/Continuing Care - Education Needs Education Needs: Patient Medication, Patient Diagnosis/Disease Process, Patient Coping Skills, Patient Placement options, Patient Community resources - Discharge Discharge Criteria: Tolerates medication w/o severe side effects, Free of Suicidal thoughts <Alexandra Kelley - Last Filed: 11/20/17 15:43> - Diagnosis (1) Acute adjustment disorder with mixed anxiety and depressed mood Status: Acute Interventions: 11/20/17 15:44 Psychoeducation Psychopharmacology/adjustment of medications as needed/ monitoring possible side effects Evaluate pt on daily basis Discussion of importance of being compliant with medications and follow up appointments Suicide and homicide risk assessment and prevention, coping strategies, safety plan Reduction of symptoms Relaxation techniques and breathing exercises Improve functional status Family involvement Cognitive behavioral therapy as outpatient (2) Major depressive disorder Status: Acute Interventions: 11/20/17 15:44 Psychoeducation Psychopharmacology/adjustment of medications as needed/ monitoring possible side effects Evaluate pt on daily basis Compliance with medications and follow up appointments Suicide and homicide risk assessment and prevention Relapse prevention Reduction of symptoms Improve functional status Family involvement As outpatient: cognitive behavioral therapy <Sarai Bach - Last Filed: 11/20/17 16:46> Family Contact Family involvement: Family/SO is involved Family contact: Patient agrees to contact
[2017-11-20 08:15] LABS: GLUCOSE,FASTING 88 mg/dL (65-110); HDL CHOLESTEROL 32 mg/dL (29-60)
[2017-11-20 08:25] LABS: LDL CHOLESTEROL 102 mg/dL (0-129)
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
[2017-11-21 07:11] VITALS: RESP 20
--- NOTE | 2017-11-21 13:21 | PCM.PYCHPN ---
Psychiatric Progress Note - Psychiatric Progress Note Patient seen today, length of contact: 30min Patient Chief Complaint: "I am doing better, Remeron is helping me sleep" Problems Identified/Issues Discussed: Suicide/ homicide prevention, past psychiatric h/o, current psychiatric symptoms , medical problems, risk/benefits and alternatives of medications, medications compliance, coping strategies, substance abuse h/o, relapse prevention, importance of follow up with psychiatrist and therapist, discharge plan. Medical Problems: see HPI Diagnostic Results: 11/19/17 14:25 11/19/17 14:25 Lab Results 11/20/17 07:15: RPR Nonreactive 11/20/17 07:15: TSH 3rd Generation 1.52 11/20/17 07:15: Fasting Glucose 88, Triglycerides 322 H, Cholesterol 189, LDL Cholesterol Direct 102, HDL Cholesterol 32 11/19/17 15:15: Urine Opiates Screen Negative, Urine Methadone Screen Negative, Ur Barbiturates Screen Negative, Ur Phencyclidine Scrn Negative, Ur Amphetamines Screen Negative, U Benzodiazepines Scrn Positive, U Oth Cocaine Metabols Negative, U Cannabinoids Screen Positive H 11/19/17 15:15: Urine Color Colorless, Urine Appearance Clear, Urine pH 7.0, Ur Specific [place] <= 1.005, Urine Protein Negative, Urine Glucose (UA) Negative, Urine Ketones Negative, Urine Blood Negative, Urine Nitrate Negative, Urine Bilirubin Negative, Urine Urobilinogen 0.2, Ur Leukocyte Esterase Negative 11/19/17 14:25: Alcohol, Quantitative < 10 11/19/17 14:25: Sodium 138, Potassium 3.9, Chloride 102, Carbon Dioxide 28, Anion Gap 12, BUN 11, Creatinine 0.6 L, Est GFR ( Amer) > 60, Est GFR ( Non-Af Amer) > 60, Random Glucose 93, Calcium 8.9, Total Bilirubin 0.1 L, AST 26 , ALT 31, Alkaline Phosphatase 82, Total Protein 5.9, Albumin 3.2, Globulin 2.7 , Albumin/Globulin Ratio 1.2 11/19/17 14:25: WBC 5.6 D, RBC 4.38, Hgb 12.3 L D, Hct 38.1 L, MCV 87.0 D, MCH 28.1, MCHC 32.3, RDW 14.7 H, Plt Count 168, MPV 9.6, Gran % 51.7, Lymph % ( Auto) 35.5 H, [place] % (Auto) 7.7 H, Eos % (Auto) 4.7, Baso % (Auto) 0.4, Gran # 2.89, Lymph # (Auto) 2.0, [place] # (Auto) 0.4, Eos # (Auto) 0.3, Baso # (Auto) 0.02 11/19/17 14:25 11/19/17 14:25 Lab Results 11/20/17 07:15: RPR Nonreactive 11/20/17 07:15: TSH 3rd Generation 1.52 11/20/17 07:15: Fasting Glucose 88, Triglycerides 322 H, Cholesterol 189, LDL Cholesterol Direct 102, HDL Cholesterol 32 11/19/17 15:15: Urine Opiates Screen Negative, Urine Methadone Screen Negative, Ur Barbiturates Screen Negative, Ur Phencyclidine Scrn Negative, Ur Amphetamines Screen Negative, U Benzodiazepines Scrn Positive, U Oth Cocaine Metabols Negative, U Cannabinoids Screen Positive H 11/19/17 15:15: Urine Color Colorless, Urine Appearance Clear, Urine pH 7.0, Ur Specific [place] <= 1.005, Urine Protein Negative, Urine Glucose (UA) Negative, Urine Ketones Negative, Urine Blood Negative, Urine Nitrate Negative, Urine Bilirubin Negative, Urine Urobilinogen 0.2, Ur Leukocyte Esterase Negative 11/19/17 14:25: Alcohol, Quantitative < 10 11/19/17 14:25: Sodium 138, Potassium 3.9, Chloride 102, Carbon Dioxide 28, Anion Gap 12, BUN 11, Creatinine 0.6 L, Est GFR ( Amer) > 60, Est GFR ( Non-Af Amer) > 60, Random Glucose 93, Calcium 8.9, Total Bilirubin 0.1 L, AST 26 , ALT 31, Alkaline Phosphatase 82, Total Protein 5.9, Albumin 3.2, Globulin 2.7 , Albumin/Globulin Ratio 1.2 11/19/17 14:25: WBC 5.6 D, RBC 4.38, Hgb 12.3 L D, Hct 38.1 L, MCV 87.0 D, MCH 28.1, MCHC 32.3, RDW 14.7 H, Plt Count 168, MPV 9.6, Gran % 51.7, Lymph % ( Auto) 35.5 H, [place] % (Auto) 7.7 H, Eos % (Auto) 4.7, Baso % (Auto) 0.4, Gran # 2.89, Lymph # (Auto) 2.0, [place] # (Auto) 0.4, Eos # (Auto) 0.3, Baso # (Auto) 0.02 Vital Signs Temp Pulse Resp BP Pulse Ox 11/21/17 07:11 98.2 F 78 20 118/80 11/21/17 07:10 98.2 F 78 20 118/80 11/20/17 07:00 98.3 F 81 16 105/69 11/19/17 19:50 90 18 133/89 99 11/19/17 17:14 86 18 142/73 98 11/19/17 13:28 97.8 F 99 H 19 115/81 97 11/19/17 13:27 97.8 F 93 H 18 115/81 97 DSM 5 Symptoms Update: shortly patient is 31 year old male, history of mood spectrum disorder , possible substance abuse history, self reported history of seizure disorder, 1 previous psychiatric admission about a month ago to this facility, patient is currently homeless, staying in shelters or in friend's house, brought himself to the emergency room complaining of worsening of his depression, feeling of hopelessness, possible suicidal ideation, no intent or plan to kill himself. This report writer is very familiar with this patient from the previous admission to the psychiatric inpatient unit which took place here in [facility] about a month ago. Patient mother was not involved in to the patient care, kicked patient out from the apartment, was not returning his calls, but in the emergency room before this admission patient mother was next to him. Patient was seen and examined today next to the nursing station, personal hygiene better, patient shaved his head, appears mildly depressed, but with some affect reactivity, this report writer educated patient about his medication regiment, patient was appreciated. pt willing to increase Remeron for depression. Patient has future oriented plans, to become independent, started leaving by himself, patient denied thoughts of harming himself or others. Patient tolerates medications well, no side effects observed or reported, aims 0 , no EPS. Patient denied hearing voices, denied seeing things, and denied paranoid ideations, patient does not present to be psychotic. As per staff patient is compliant with medications, urine intrusive and regulations, does not have any aggression or agitation. as it was expected, patient mother is not answering on the phone, not giving a calls back. DSM 5 Diagnosis: rule out adjustment disorder with depressed and anxious mood Rule out major depressive disorder Cannabis abuse History of substance abuse Medication Change: Yes (Remeron increased) Medical Record Reviewed: Yes Consults ordered or reviewed: patient was seen by medical team and the emergency room, no acute medical issues Mental Status Examination - Cognitive Function Orientation: Person, Place, Situation Memory: Intact Attention: Poor (some improvement) Concentration: Poor (some improvement) Association: WNL Fund of Knowledge: WNL - Mood Mood: Depressed, Anxious - Affect Affect: Constricted (but more reactive, mood congruent) - Formal Thought Process Formal Thought Process: No Impairment - Suicidal Ideation Suicidal Ideation: No - Homicidal Ideation Homicidal Ideation: No Goal/Treatment Plan - Goal/Treatment Plan Need for Continued Stay: Remain at risks for inpatient hospitalization, Severe depression anxiety, Discharge may exacerbated symptoms, Failed transitioning, Severe functional impairment Progress Toward Problem(s) and Goals/Treatment Plan: Milieu/structure/supportive therapy urology consultation would be considered SW consultation for discharge plan and social issues Med management Medications were confirmed with alcohol pharmacy, Suboxone is nonformulary, methadone will be given to the patient Lexapro resumed 20 mg daily for depression and anxiety Xanax resumed 2 mg 3 times a day scheduled Remeron was initiated to date will be increased to 30 mg at the nighttime for depression and insomnia Vistaril as needed for anxiety Family involvement, patient mother is not returning any phone calls Follow up on labs Will monitor closely Pt was educated about risk/benefits and alternatives of medications, coping strategies (safety plan, suicide prevention), relapse prevention, importance of follow up with psychiatrist and therapist, stay away from drugs/alcohol/smoking Estimated Date of D/C: 11/17/17 - Smoking Cessation Smoking Cessation Initiated: Yes
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
[2017-11-23 07:31] VITALS: BP 77/41; PULSE 87; TEMP 97.8
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
== END 2017-11-23 14:45 | disposition home or self-care (01) | DRG 881 ==
LOC: ED 13:17 → ERH 19:15 → PSYC 20:08
PROVIDERS: ADMIT Psychiatry & Neurology Psychiatry; ATTEND Psychiatry & Neurology Psychiatry
DX: F32.9 Major depressive disorder, single episode, unspecified (principal); F43.23 Adjustment disorder with mixed anxiety and depressed mood; F12.10 Cannabis abuse, uncomplicated; G40.909 Epilepsy, unspecified, not intractable, without status epilepticus; Z59.0 Homelessness

== ENCOUNTER 2018-02-14 13:32 | Emergency (ER) | payer MEDICARE, MEDICAID ==
[2018-02-14 13:33] VITALS: BMI 26.4
[2018-02-14 13:38] VITALS: RESP 18; TEMP 98.2; O2SAT 98
--- NOTE | 2018-02-14 14:01 | ED PDOC ---
Arrival/HPI - General Chief Complaint: Psychiatric Evaluation Time Seen by Provider: 02/14/18 13:54 Historian: Patient - History of Present Illness Narrative History of Present Illness (Text): 02/14/18 13:59 Patient is a 32 yo male, states he is currently homeless, states that he "feels like I'm losing it" and reports stress over custody issues with his son. Also states that he has not taken his medications "for a week" because "Dr. Givens is trying to wean me off", and feels "a little shaky". He denies trauma. Reports depression, but currently NO suicidal ideation or plan. Denies nausea or vomiting. Denies chest pain or shortness of breath. Denies unsteadiness or trauma Past Medical History - Past History Past History: No Previous - Infectious Disease Hx of Infectious Diseases: None - Tetanus Immunization Tetanus Immunization: Unknown - Past Medical History Past Medical History: No Previous - Cardiac Hx Hypertension: No - Pulmonary Hx Tuberculosis: No - Neurological Hx Seizures: Yes - HEENT Hx HEENT Disorder: No - Renal Hx Renal Disorder: No - Endocrine/Metabolic Hx Endocrine Disorders: No - Hematological/Oncological Hx Cancer: No - Integumentary Hx Dermatological Disorder: No - Musculoskeletal/Rheumatological Hx Musculoskeletal Disorders: No - Gastrointestinal Hx Gastrointestinal Disorders: No - Genitourinary/Gynecological Hx Sexually Transmitted Diseases: No - Psychiatric Hx Anxiety: Yes Hx Bipolar Disorder: Yes Hx Depression: Yes Hx Post Traumatic Stress Disorder: No Hx Schizophrenia: Yes Hx Substance Use: Yes - Past Surgical History Past Surgical History: Non-Contributing - Surgical History Hx Orthopedic Surgery: Yes (left hand) Other/Comment: sepsis seconadary to appendicitis. 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 - Anesthesia Hx Anesthesia: Yes Hx Anesthesia Reactions: No Hx Malignant Hyperthermia: No - Suicidal Assessment Feels Threatened In Home Enviroment: No Family/Social History Family/Social History: Unknown Family HX Smoking Status: Current Some Days Smoker Hx Alcohol Use: No Hx Substance Use: Yes Substance used: marijuana Hx Substance Use Treatment: No Allergies/Home Meds Allergies/Adverse Reactions: Allergies No Known Allergies Allergy (Verified 02/14/18 13:38) Home Medications: Home Meds Medication Instructions Recorded Confirmed Naloxone 8 mg SL TID 11/20/17 02/14/18 Review of Systems - Review of Systems Constitutional: absent: Weight Change, Fevers, Night Sweats Eyes: absent: Vision Changes ENT: absent: Hearing Changes Respiratory: absent: SOB, Cough Cardiovascular: Palpitations. absent: Chest Pain Gastrointestinal: Appetite Changes. absent: Abdominal Pain, Diarrhea, Nausea, Vomiting Genitourinary Male: absent: Frequency Musculoskeletal: absent: Arthralgias, Back Pain Skin: absent: Rash Neurological: absent: Headache, Dizziness, Focal Weakness Endocrine: absent: Polyuria Hemo/Lymphatic: absent: Easy Bleeding Psychiatric: Depression. absent: Suicidal Ideation Physical Exam Vital Signs Reviewed: Yes Vital Signs Temp Pulse Resp BP Pulse Ox 02/14/18 17:57 69 18 128/71 98 02/14/18 13:36 98.2 F 72 18 141/79 98 Temperature: Afebrile Blood Pressure: Hypertensive Appearance: Positive for: Unkept Pain Distress: Mild Mental Status: Positive for: Alert and Oriented X 3 - Systems Exam Head: Present: Atraumatic Pupils: Present: PERRL Mouth: Present: Moist Mucous Membranes Pharnyx: No: ERYTHEMA, EXUDATE, Muffled/Hoarse Voice, Strider Nose (Internal): Present: Normal Inspection Neck: Present: Normal Range of Motion. No: Meningeal Signs Respiratory/Chest: Present: Clear to Auscultation. No: Respiratory Distress Cardiovascular: Present: Regular Rate and Rhythm, Murmurs Abdomen: No: Tenderness, Distention Back: No: CVA Tenderness, Midline Tenderness Upper Extremity: No: Cyanosis Lower Extremity: Present: Edema, NORMAL PULSES, Neurovascularly Intact. No: CALF TENDERNESS Neurological: Present: CN II-XII Intact, Speech Normal, Motor Func Grossly Intact, Normal Sensory Function, Memory Normal, Normal 2Pt Descrimination, Other (mild tremor) Skin: Present: Diaphoretic, Pale Psychiatric: Present: Alert, Oriented x 3, Normal Insight, Normal Concentration , Anxious, Depressed Mood Medical Decision Making ED Course and Treatment: 02/14/18 14:03 Patient reports past history of anxiety, depression. States he has not taken medications for one week. He currently denies any headache or chest pain or shortness of breath. Ativan ordered for component of anxiety. Labs and monitoring ordered. 02/14/18 18:07 Patient on re-evaluation not tremulous or tachycardic. Denies suicidal ideation or plan currently. He has no focal motor or sensory deficits. He was medically cleared for PES evaluation as no tachycardia or sweats or hypertension. Patient seen and evaluated by PES, cleared for discharged. On re-evaluation no pain. Normal speech. Steady gait. He denies suicidal ideation. Not tremulous. He has been provided follow-up information. Reassessment Condition: Re-examined - Lab Interpretations Lab Results: 02/14/18 15:20 02/14/18 15:20 Lab Results 02/14/18 15:20: Alcohol, Quantitative < 10 02/14/18 15:20: Salicylates < 1 L, Acetaminophen < 10.0 L 02/14/18 15:20: Urine Opiates Screen Negative, Urine Methadone Screen Negative, Ur Barbiturates Screen Negative, Ur Phencyclidine Scrn Negative, Ur Amphetamines Screen Negative, U Benzodiazepines Scrn Negative, U Oth Cocaine Metabols Negative, U Cannabinoids Screen Positive H 02/14/18 15:20: Sodium 140, Potassium 3.5 L, Chloride 105, Carbon Dioxide 24, Anion Gap 14, BUN 8, Creatinine 0.6 L, Est GFR ( Amer) > 60, Est GFR (Non -Af Amer) > 60, Random Glucose 93, Calcium 9.3, Magnesium 1.9, Total Bilirubin 0.7, AST 14 L D, ALT 26, Alkaline Phosphatase 85, Total Creatine Kinase 50, Total Protein 7.5, Albumin 4.2, Globulin 3.3, Albumin/Globulin Ratio 1.3 02/14/18 15:20: Urine Color Yellow, Urine Appearance Clear, Urine pH 7.0, Ur Specific [place] <= 1.005, Urine Protein Negative, Urine Glucose (UA) Negative, Urine Ketones Negative, Urine Blood Negative, Urine Nitrate Negative, Urine Bilirubin Negative, Urine Urobilinogen 0.2, Ur Leukocyte Esterase Small H, Urine RBC Negative, Urine WBC 2 - 5, Ur Epithelial Cells 3 - 4, Urine Bacteria Few 02/14/18 15:20: WBC 10.0 D, RBC 5.30, Hgb 15.3 D, Hct 43.3, MCV 81.7 D, MCH 28.9, MCHC 35.3, RDW 13.9, Plt Count 157, MPV 10.4, Gran % 66.8, Lymph % (Auto) 27.6, [place] % (Auto) 5.2, Eos % (Auto) 0.2 L, Baso % (Auto) 0.2, Gran # 6.70 H, Lymph # (Auto) 2.8, [place] # (Auto) 0.5, Eos # (Auto) 0.0, Baso # (Auto) 0.02 - RAD Interpretation Radiology Orders: 02/14/18 13:56 CHEST PORTABLE [RAD] Stat - EKG Interpretation EKG Interpretation (Text): EKG at 14:20 normal sinus rhythm rate of 80 with sinus arrhythmia Interpreted by ED Physician: Yes Type: 12 lead EKG - Medication Orders Current Medication Orders: Discontinued Medications Lorazepam (Ativan) 1 mg IVP STAT STA Stop: 02/14/18 13:57 Last Admin: 02/14/18 15:48 Dose: 1 mg IVP Administration Document 02/14/18 15:48 GMD (Rec: 02/14/18 15:48 GMD [id number]) Charges for Administration # of IVP Administrations 1 Potassium Chloride (K-Dur 20 Meq Er Tab) 20 meq PO STAT STA Stop: 02/14/18 16:09 Last Admin: 02/14/18 16:17 Dose: 20 meq Disposition/Present on Arrival - Present on Arrival Any Indicators Present on Arrival: No History of DVT/PE: No History of Uncontrolled Diabetes: No Urinary Catheter: No History of Decub. Ulcer: No History Surgical Site Infection Following: None - Disposition Have Diagnosis and Disposition been Completed?: Yes Diagnosis: Depression Disposition: HOME/ ROUTINE Disposition Time: 18:21 Patient Plan: Discharge Condition: GOOD Discharge Instructions (ExitCare): Depression, Adult (DC) Additional Instructions: Follow instructions as per mental health practicioner. RETURN TO ER IMMEDIATELY for any tremors, shaking, pain, nausea, vomiting, unsteadiness, worsening thoughts, any new or progressive symptoms. Forms: [employer] (Lao)
[2018-02-14 15:39] LABS: BASO # 0.02 K/mm3 (0.0-2.0); BASO % 0.2 % (0.0-3.0); EOS % 0.2 % (1.5-5.0); GRAN # 6.7 (1.4-6.5); GRAN % 66.8 % (50.0-68.0); HEMOGLOBIN 15.3 g/dL (14.0-18.0); LYMPH # 2.8 (1.2-3.4); LYMPH % 27.6 % (22.0-35.0); MEAN CELL VOLUME 81.7 fl (80.0-105.0); MEAN CORPUSCULAR HEMOGLOBIN 28.9 pg (25.0-35.0); MEAN CORPUSCULAR HGB CONC 35.3 g/dl (31.0-37.0); MEAN PLATELET VOLUME 10.4 fl (7.0-11.0); MONO # 0.5 (0.1-0.6); MONO % 5.2 % (1.0-6.0); RBC 5.3 10^6/uL (3.5-6.1); RED CELL DISTRIBUTION WIDTH 13.9 % (11.5-14.5)
[2018-02-14 15:40] LABS: URINE BILIRUBIN NEGATIVE (NEGATIVE); URINE BLOOD NEGATIVE (NEGATIVE); URINE GLUCOSE (UA) NEGATIVE (NEGATIVE); URINE LEUKOCYTE ESTERASE SMALL Leu/uL (NEGATIVE); URINE PROTEIN NEGATIVE mg/dL (<30 mg/dL); URINE UROBILINOGEN 0.2 E.U./dL (<1 E.U./dL)
[2018-02-14 15:45] LABS: URINE APPEARANCE CLEAR (CLEAR); URINE COLOR YELLOW (YELLOW)
[2018-02-14 15:46] LABS: URINE BACTERIA FEW (NEG); URINE RBC NEGATIVE /hpf (0-2)
--- NOTE | 2018-02-14 15:48 | RAD ---
HISTORY: shakiness COMPARISON: Comparison chest 11/19/2017 FINDINGS: LUNGS: Minor linear atelectasis or scarring left lung base PLEURA: No significant pleural effusion identified, no pneumothorax apparent. CARDIOVASCULAR: Normal. OSSEOUS STRUCTURES: No significant abnormalities. VISUALIZED UPPER ABDOMEN: Normal. OTHER FINDINGS: None. IMPRESSION: Minor linear atelectasis or scarring left lung base
[2018-02-14 15:51] LABS: ACETAMINOPHEN < 10.0 ug/ml (10.0-20.0); SALICYLATE < 1 mg/dL (2.0-20.0)
[2018-02-14 15:52] LABS: ALB/GLOB RATIO 1.3 (1.1-1.8); ALBUMIN 4.2 g/dL (3.0-4.8); ALT/SGPT 26 U/L (7-56); AST/SGOT 14 U/L (17-59); BLOOD UREA NITROGEN 8 mg/dL (7-21); CALCIUM 9.3 mg/dL (8.4-10.5); GFR AFRICAN-AMERICAN > 60; GFR NON-AFRICAN AMERICAN > 60
[2018-02-14 16:07] LABS: BARBITURATES, UR NEGATIVE (NEGATIVE); BENZODIAZEPINES, UR NEGATIVE (NEGATIVE); OPIATES, UR NEGATIVE (NEGATIVE); PHENCYCLIDINE, UR NEGATIVE (NEGATIVE)
[2018-02-14] MEDS ORDERED: Potassium Chloride 20 mEq ER Tab PO STA (16:08)
[2018-02-14 17:57] VITALS: BP 128/71; PULSE 69
--- NOTE | 2018-02-15 09:21 | CARD ---
APPROVED REPORT EKG Measurement Heart [id number] ID [id number] <Conclusion> Sinus rhythm with marked sinus arrhythmia Otherwise normal ECG
== END 2018-02-14 18:21 | disposition home or self-care (01) ==
LOC: ED 13:32
DX: F32.9 Major depressive disorder, single episode, unspecified (principal); Z59.0 Homelessness

== ENCOUNTER 2018-02-15 13:18 | Inpatient (IN) | payer MEDICARE, MEDICAID ==
[2018-02-15 14:01] VITALS: BMI 25.7
[2018-02-15 14:30] LABS: BASO # 0.01 K/mm3 (0.0-2.0); BASO % 0.1 % (0.0-3.0); EOS % 0.3 % (1.5-5.0); GRAN # 7.74 (1.4-6.5); HEMOGLOBIN 16.3 g/dL (14.0-18.0); LYMPH # 2.2 (1.2-3.4); LYMPH % 21.2 % (22.0-35.0); MEAN CELL VOLUME 81.9 fl (80.0-105.0); MEAN CORPUSCULAR HEMOGLOBIN 28.6 pg (25.0-35.0); MEAN PLATELET VOLUME 11.1 fl (7.0-11.0); MONO # 0.4 (0.1-0.6); MONO % 3.4 % (1.0-6.0); RBC 5.69 10^6/uL (3.5-6.1); RED CELL DISTRIBUTION WIDTH 13.9 % (11.5-14.5); URINE APPEARANCE CLEAR (CLEAR); URINE BILIRUBIN NEGATIVE (NEGATIVE); URINE BLOOD NEGATIVE (NEGATIVE); URINE COLOR YELLOW (YELLOW); URINE GLUCOSE (UA) NEGATIVE (NEGATIVE); URINE LEUKOCYTE ESTERASE SMALL Leu/uL (NEGATIVE); URINE PROTEIN NEGATIVE mg/dL (<30 mg/dL); URINE UROBILINOGEN 0.2 E.U./dL (<1 E.U./dL); WHITE BLOOD COUNT 10.3 10^3/ul (4.5-11.0)
[2018-02-15 14:43] LABS: URINE BACTERIA SMALL (NEG); URINE EPITHELIAL CELLS 0 - 2 /hpf (0-5); URINE RBC NEGATIVE /hpf (0-2)
--- NOTE | 2018-02-15 14:49 | RAD ---
HISTORY: pes eval COMPARISON: 02/14/2018. FINDINGS: LUNGS: The lungs are well inflated and clear. PLEURA: No significant pleural effusion identified, no pneumothorax apparent. CARDIOVASCULAR: Normal. OSSEOUS STRUCTURES: No significant abnormalities. VISUALIZED UPPER ABDOMEN: Normal. OTHER FINDINGS: None. IMPRESSION: No active pulmonary disease.
[2018-02-15 15:01] LABS: BARBITURATES, UR NEGATIVE (NEGATIVE); BENZODIAZEPINES, UR NEGATIVE (NEGATIVE); OPIATES, UR NEGATIVE (NEGATIVE); PHENCYCLIDINE, UR NEGATIVE (NEGATIVE)
[2018-02-15 15:02] LABS: ALB/GLOB RATIO 1.3 (1.1-1.8); ALBUMIN 4.7 g/dL (3.0-4.8); ALT/SGPT 22 U/L (7-56); AST/SGOT 16 U/L (17-59); BLOOD UREA NITROGEN 8 mg/dL (7-21); CALCIUM 9.7 mg/dL (8.4-10.5); GFR AFRICAN-AMERICAN > 60; GFR NON-AFRICAN AMERICAN > 60
[2018-02-15 15:03] LABS: ACETAMINOPHEN < 10.0 ug/ml (10.0-20.0); SALICYLATE < 1 mg/dL (2.0-20.0)
[2018-02-15] MEDS ORDERED: Potassium Chloride 20 mEq ER Tab PO STA (16:06)
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
[2018-02-15] MEDS ORDERED: Magnesium Hydroxide Susp 30 ml UD PO PRN (18:05)
[2018-02-15] MEDS ORDERED: Alum-Mag Hydrox-Simethicone Susp (30 mL) PO PRN (18:05)
--- NOTE | 2018-02-15 19:27 | PCM.BM ---
<Mónica Beal - Last Filed: 02/15/18 19:23> Treatment Plan Problems - Problems identified on initial assessmt hopeless/helpless Date Initiated: 02/15/18 Time Initiated: 19:00 Assessment reference: NA Status: Active Priority: 1 anxiety Date Initiated: 02/15/18 Time Initiated: 19:00 Assessment reference: NA Priority: 2 ineffective coping skills Date Initiated: 02/15/18 Time Initiated: 19:00 Assessment reference: NA Status: Active Priority: 3 Treatment assets and liabiliti Patient Assests: adapts well, cooperative, resourceful, self-reliant, ADL independent, physically healthy, negotiates basic needs, cognitively intact Patient Liabilities: financial problems, poor support system, other (homeless) - Milieu Protocol Maintain good personal hygiene: daily Encourage regular showers, daily Remind patient to perform daily oral care, daily Assist patient to perform ADL's Maintain personal safety: every shift Educate patient to report safety concerns to staff, every shift Monitor environment for contraband/sharps Medication safety: Monitor for expected outcome, potential side effects: every shift, Assess barriers to learning: every shift, Assess readiness for medication education: every shift Discharge/Continuing Care - Education Needs Education Needs: Patient Medication, Patient Diagnosis/Disease Process, Patient Coping Skills, Patient Community resources, Patient Activities of Daily Living, Patient Nutrition, Patient Health Practices/Safety, Patient Personal Hygiene/ Grooming, Patient Aftercare Safety Plan - Discharge Discharge Criteria: Tolerates medication w/o severe side effects, Free of Suicidal thoughts, Free of paranoid thoughts, Free of agitation, Normal sleep pattern, Ability to care for self, Reduction of target symptoms Discharge to:: [facility] <Alexandra Kelley - Last Filed: 02/16/18 14:36> - Diagnosis (1) Depression Status: Acute Interventions: 02/16/18 14:37 Psychoeducation Psychopharmacology/adjustment of medications as needed/ monitoring possible side effects Evaluate pt on daily basis Compliance with medications and follow up appointments Suicide and homicide risk assessment and prevention Relapse prevention Reduction of symptoms Improve functional status Family involvement As outpatient: cognitive behavioral therapy (2) Drug abuse Status: Acute Interventions: 02/16/18 14:36 Monitoring withdrawal symptoms Medical detoxification Pharmacotherapy for alcohol/benzos/opioid dependence Maintaining sobriety Relapse prevention Possible rehabilitation Motivational interviewing 12-step programs: AA meetings <Sarai Bach - Last Filed: 02/17/18 16:15> Family Contact Family involvement: Famliy/SO not involved
--- NOTE | 2018-02-15 22:34 | CARD ---
APPROVED REPORT EKG Measurement Heart [id number] <Conclusion> Sinus rhythm with marked sinus arrhythmia Otherwise normal ECG
[2018-02-16 06:44] LABS: GLUCOSE,FASTING 96 mg/dL (65-110); HDL CHOLESTEROL 33 mg/dL (29-60)
[2018-02-16 06:54] LABS: LDL CHOLESTEROL 125 mg/dL (0-129)
[2018-02-16 06:56] LABS: FREE T4 1.32 ng/dL (0.78-2.19)
[2018-02-16] MEDS: Divalproex 250 mg DR (BID formulation) PO SCH ×2 (08:43→17:19)
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
[2018-02-17] MEDS: Divalproex 250 mg DR (BID formulation) PO SCH ×2 (08:41→17:02)
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
[2018-02-18] MEDS: Divalproex 250 mg DR (BID formulation) PO SCH ×2 (07:47→16:49)
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
[2018-02-19] MEDS: Divalproex 250 mg DR (BID formulation) PO SCH ×2 (08:01→16:19)
--- NOTE | 2018-02-19 14:22 | PCM.PYCHPN ---
Psychiatric Progress Note - Psychiatric Progress Note Patient seen today, length of contact: 30min Patient Chief Complaint: "I feel little better, less anxious" Problems Identified/Issues Discussed: Suicide/ homicide prevention, past psychiatric h/o, current psychiatric symptoms , medical problems, risk/benefits and alternatives of medications, medications compliance, coping strategies, substance abuse h/o, relapse prevention, importance of follow up with psychiatrist and therapist, discharge plan. Medical Problems: see HPI Diagnostic Results: 02/15/18 13:45 02/15/18 13:45 Lab Results 02/16/18 06:10: RPR Nonreactive 02/16/18 06:10: Free T4 1.32, TSH 3rd Generation 0.56 02/16/18 06:10: Fasting Glucose 96, Triglycerides 90, Cholesterol 185, LDL Cholesterol Direct 125, HDL Cholesterol 33 02/15/18 13:45: Alcohol, Quantitative < 10 02/15/18 13:45: Salicylates < 1 L, Acetaminophen < 10.0 L 02/15/18 13:45: Urine Opiates Screen Negative, Urine Methadone Screen Negative, Ur Barbiturates Screen Negative, Ur Phencyclidine Scrn Negative, Ur Amphetamines Screen Negative, U Benzodiazepines Scrn Negative, U Oth Cocaine Metabols Negative, U Cannabinoids Screen Positive H 02/15/18 13:45: Sodium 143, Potassium 3.0 L, Chloride 103, Carbon Dioxide 26, Anion Gap 17, BUN 8, Creatinine 0.7 L, Est GFR ( Amer) > 60, Est GFR (Non -Af Amer) > 60, Random Glucose 96, Calcium 9.7, Total Bilirubin 1.2, AST 16 L, ALT 22, Alkaline Phosphatase 82, Total Protein 8.3, Albumin 4.7, Globulin 3.5, Albumin/Globulin Ratio 1.3 02/15/18 13:45: Urine Color Yellow, Urine Appearance Clear, Urine pH 7.0, Ur Specific [place] 1.010, Urine Protein Negative, Urine Glucose (UA) Negative, Urine Ketones 15 H, Urine Blood Negative, Urine Nitrate Negative, Urine Bilirubin Negative, Urine Urobilinogen 0.2, Ur Leukocyte Esterase Small H, Urine RBC Negative, Urine WBC 1 - 3, Ur Epithelial Cells 0 - 2, Urine Bacteria Small 02/15/18 13:45: WBC 10.3, RBC 5.69, Hgb 16.3, Hct 46.6, MCV 81.9, MCH 28.6, MCHC 35.0, RDW 13.9, Plt Count 166, MPV 11.1 H, Gran % 75.0 H, Lymph % (Auto) 21.2 L, [place] % (Auto) 3.4, Eos % (Auto) 0.3 L, Baso % (Auto) 0.1, Gran # 7.74 H , Lymph # (Auto) 2.2, [place] # (Auto) 0.4, Eos # (Auto) 0.0, Baso # (Auto) 0.01 Vital Signs Temp Pulse Resp BP Pulse Ox 02/17/18 07:00 97.6 F 63 20 110/70 02/16/18 07:18 97.7 F 57 L 20 02/15/18 18:30 16 02/15/18 17:47 100 02/15/18 17:00 77 17 125/78 100 02/15/18 15:32 82 17 128/80 99 02/15/18 13:18 98.5 F 87 18 131/85 100 DSM 5 Symptoms Update: shortly patient is 32 year old Male, reported h/o mood spectrum disorder, substance abuse, 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 pt was in good behavioral control, pt was willing to be off controlled substance medications. pt said that his withdrawals are "better, I am less anxious". c/o poor sleep. appetite is fair. pt said that he feels "overwhelmed about his social situation". pt does not want to go to rehab, has no insight into his addiction. pt tolerates medications well, no side effects observed or reported, aims 0, no EPS Impression: DSM 5 Diagnosis: r/o mdd r/o adjustment disorder r/o substance induced mood disorder Medication Change: Yes (Klonopin added, Seroquel increased) Medical Record Reviewed: Yes Mental Status Examination - Cognitive Function Orientation: Person, Place, Situation, Time Memory: Intact Attention: Poor Concentration: Poor Association: WNL Fund of Knowledge: WNL - Mood Mood: Depressed, Anxious - Affect Affect: Flat - Formal Thought Process Formal Thought Process: No Impairment - Suicidal Ideation Suicidal Ideation: No - Homicidal Ideation Homicidal Ideation: No Goal/Treatment Plan - Goal/Treatment Plan Need for Continued Stay: Remain at risks for inpatient hospitalization, Severe depression anxiety, Discharge may exacerbated symptoms, Failed transitioning, Severe functional impairment Progress Toward Problem(s) and Goals/Treatment Plan: Milieu/structure/supportive therapy Medical consult will be considered SW consultation for discharge plan and social issues Med management meds confirmed no controlled substances will be given to the pt neurontin 600mg po tid Klonopin 10.1 mg twice a day as needed for withdrawals lexapro d/c vistaril 50mg po tid for anxiety remeron 30mg po hs for depression/insomnia depakote 500mg po bod for mood stabilization seroquel 50mg po bid for mood stabilization wellbutrin for depression Family involvement Follow up on labs Will monitor closely Pt was educated about risk/benefits and alternatives of medications, coping strategies (safety plan, suicide prevention), relapse prevention, importance of follow up with psychiatrist and therapist, stay away from drugs/alcohol/smoking Estimated Date of D/C: 02/22/18
[2018-02-20] MEDS: Divalproex 250 mg DR (BID formulation) PO SCH ×2 (08:48→16:58)
--- NOTE | 2018-02-20 12:32 | PCM.PYCHPN ---
Psychiatric Progress Note - Psychiatric Progress Note Patient seen today, length of contact: 30min Patient Chief Complaint: "I feel little better, less anxious" Problems Identified/Issues Discussed: Suicide/ homicide prevention, past psychiatric h/o, current psychiatric symptoms , medical problems, risk/benefits and alternatives of medications, medications compliance, coping strategies, substance abuse h/o, relapse prevention, importance of follow up with psychiatrist and therapist, discharge plan. Medical Problems: see HPI Diagnostic Results: 02/15/18 13:45 02/15/18 13:45 Lab Results 02/16/18 06:10: RPR Nonreactive 02/16/18 06:10: Free T4 1.32, TSH 3rd Generation 0.56 02/16/18 06:10: Fasting Glucose 96, Triglycerides 90, Cholesterol 185, LDL Cholesterol Direct 125, HDL Cholesterol 33 02/15/18 13:45: Alcohol, Quantitative < 10 02/15/18 13:45: Salicylates < 1 L, Acetaminophen < 10.0 L 02/15/18 13:45: Urine Opiates Screen Negative, Urine Methadone Screen Negative, Ur Barbiturates Screen Negative, Ur Phencyclidine Scrn Negative, Ur Amphetamines Screen Negative, U Benzodiazepines Scrn Negative, U Oth Cocaine Metabols Negative, U Cannabinoids Screen Positive H 02/15/18 13:45: Sodium 143, Potassium 3.0 L, Chloride 103, Carbon Dioxide 26, Anion Gap 17, BUN 8, Creatinine 0.7 L, Est GFR ( Amer) > 60, Est GFR (Non -Af Amer) > 60, Random Glucose 96, Calcium 9.7, Total Bilirubin 1.2, AST 16 L, ALT 22, Alkaline Phosphatase 82, Total Protein 8.3, Albumin 4.7, Globulin 3.5, Albumin/Globulin Ratio 1.3 02/15/18 13:45: Urine Color Yellow, Urine Appearance Clear, Urine pH 7.0, Ur Specific [place] 1.010, Urine Protein Negative, Urine Glucose (UA) Negative, Urine Ketones 15 H, Urine Blood Negative, Urine Nitrate Negative, Urine Bilirubin Negative, Urine Urobilinogen 0.2, Ur Leukocyte Esterase Small H, Urine RBC Negative, Urine WBC 1 - 3, Ur Epithelial Cells 0 - 2, Urine Bacteria Small 02/15/18 13:45: WBC 10.3, RBC 5.69, Hgb 16.3, Hct 46.6, MCV 81.9, MCH 28.6, MCHC 35.0, RDW 13.9, Plt Count 166, MPV 11.1 H, Gran % 75.0 H, Lymph % (Auto) 21.2 L, [place] % (Auto) 3.4, Eos % (Auto) 0.3 L, Baso % (Auto) 0.1, Gran # 7.74 H , Lymph # (Auto) 2.2, [place] # (Auto) 0.4, Eos # (Auto) 0.0, Baso # (Auto) 0.01 Vital Signs Temp Pulse Resp BP Pulse Ox 02/17/18 07:00 97.6 F 63 20 110/70 02/16/18 07:18 97.7 F 57 L 20 02/15/18 18:30 16 02/15/18 17:47 100 02/15/18 17:00 77 17 125/78 100 02/15/18 15:32 82 17 128/80 99 02/15/18 13:18 98.5 F 87 18 131/85 100 DSM 5 Symptoms Update: shortly patient is 32 year old Male, reported h/o mood spectrum disorder, substance abuse, 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, h/o two psychiatric admissions, most recent was in October 2017, poor family dynamics, pt currently homeless, lives in [facility], came [place] [facility] [place] looking for help for his depressive symptoms, possible suicidal ideation, pt reported prior to come to the hospital he crossed the line at [facility], pt also has h/o pain/stimulat/benzodiazepines "stolen", pt was not compliant with meds for 5- 6days prior to this admission, pt required further evaluation and stabilization , meds adjustment. pt was in good behavioral control, pt was "better, but still anxious", pt currently off benzos or stimulants or pain meds. pt said that his withdrawals are "better", pt was educated about his current meds, pt verbalized understanding. pt reported sleep to be improving. pt reported that he still feels depressed, hopeless. appetite is "good" pt said that he feels "overwhelmed about my social situation". pt does not want to go to rehab, has no insight into his addiction. pt tolerates medications well, no side effects observed or reported, aims 0, no EPS Impression: DSM 5 Diagnosis: r/o mdd r/o adjustment disorder r/o substance induced mood disorder Medication Change: Yes (Klonopin added, Seroquel increased) Medical Record Reviewed: Yes Mental Status Examination - Cognitive Function Orientation: Person, Place, Situation, Time Memory: Intact Attention: Poor Concentration: Poor Association: WNL Fund of Knowledge: WNL - Mood Mood: Depressed, Anxious - Affect Affect: Flat - Formal Thought Process Formal Thought Process: No Impairment - Suicidal Ideation Suicidal Ideation: No - Homicidal Ideation Homicidal Ideation: No Goal/Treatment Plan - Goal/Treatment Plan Need for Continued Stay: Remain at risks for inpatient hospitalization, Severe depression anxiety, Discharge may exacerbated symptoms, Failed transitioning, Severe functional impairment Progress Toward Problem(s) and Goals/Treatment Plan: Milieu/structure/supportive therapy Medical consult will be considered SW consultation for discharge plan and social issues Med management meds confirmed no controlled substances will be given to the pt neurontin 600mg po tid Clonidine( correction to my previous note, not klonopin but clonidine) 0.1 mg twice a day as needed for withdrawals vistaril 50mg po qid for anxiety remeron 30mg po hs for depression/insomnia depakote 500mg po bod for mood stabilization seroquel 100mg po bid for mood stabilization wellbutrin for depression Family involvement Follow up on labs Will monitor closely Pt was educated about risk/benefits and alternatives of medications, coping strategies (safety plan, suicide prevention), relapse prevention, importance of follow up with psychiatrist and therapist, stay away from drugs/alcohol/smoking Estimated Date of D/C: 02/22/18
[2018-02-21] MEDS: Divalproex 250 mg DR (BID formulation) PO SCH ×2 (08:23→16:12)
--- NOTE | 2018-02-21 10:31 | PCM.PYCHPN ---
Psychiatric Progress Note - Psychiatric Progress Note Patient seen today, length of contact: 30min Patient Chief Complaint: "I feel little better, but anxious" Problems Identified/Issues Discussed: Suicide/ homicide prevention, past psychiatric h/o, current psychiatric symptoms , medical problems, risk/benefits and alternatives of medications, medications compliance, coping strategies, substance abuse h/o, relapse prevention, importance of follow up with psychiatrist and therapist, discharge plan. Medical Problems: see HPI Diagnostic Results: 02/15/18 13:45 02/15/18 13:45 Lab Results 02/16/18 06:10: RPR Nonreactive 02/16/18 06:10: Free T4 1.32, TSH 3rd Generation 0.56 02/16/18 06:10: Fasting Glucose 96, Triglycerides 90, Cholesterol 185, LDL Cholesterol Direct 125, HDL Cholesterol 33 02/15/18 13:45: Alcohol, Quantitative < 10 02/15/18 13:45: Salicylates < 1 L, Acetaminophen < 10.0 L 02/15/18 13:45: Urine Opiates Screen Negative, Urine Methadone Screen Negative, Ur Barbiturates Screen Negative, Ur Phencyclidine Scrn Negative, Ur Amphetamines Screen Negative, U Benzodiazepines Scrn Negative, U Oth Cocaine Metabols Negative, U Cannabinoids Screen Positive H 02/15/18 13:45: Sodium 143, Potassium 3.0 L, Chloride 103, Carbon Dioxide 26, Anion Gap 17, BUN 8, Creatinine 0.7 L, Est GFR ( Amer) > 60, Est GFR (Non -Af Amer) > 60, Random Glucose 96, Calcium 9.7, Total Bilirubin 1.2, AST 16 L, ALT 22, Alkaline Phosphatase 82, Total Protein 8.3, Albumin 4.7, Globulin 3.5, Albumin/Globulin Ratio 1.3 02/15/18 13:45: Urine Color Yellow, Urine Appearance Clear, Urine pH 7.0, Ur Specific [place] 1.010, Urine Protein Negative, Urine Glucose (UA) Negative, Urine Ketones 15 H, Urine Blood Negative, Urine Nitrate Negative, Urine Bilirubin Negative, Urine Urobilinogen 0.2, Ur Leukocyte Esterase Small H, Urine RBC Negative, Urine WBC 1 - 3, Ur Epithelial Cells 0 - 2, Urine Bacteria Small 02/15/18 13:45: WBC 10.3, RBC 5.69, Hgb 16.3, Hct 46.6, MCV 81.9, MCH 28.6, MCHC 35.0, RDW 13.9, Plt Count 166, MPV 11.1 H, Gran % 75.0 H, Lymph % (Auto) 21.2 L, [place] % (Auto) 3.4, Eos % (Auto) 0.3 L, Baso % (Auto) 0.1, Gran # 7.74 H , Lymph # (Auto) 2.2, [place] # (Auto) 0.4, Eos # (Auto) 0.0, Baso # (Auto) 0.01 Vital Signs Temp Pulse Resp BP Pulse Ox 02/17/18 07:00 97.6 F 63 20 110/70 02/16/18 07:18 97.7 F 57 L 20 02/15/18 18:30 16 02/15/18 17:47 100 02/15/18 17:00 77 17 125/78 100 02/15/18 15:32 82 17 128/80 99 02/15/18 13:18 98.5 F 87 18 131/85 100 DSM 5 Symptoms Update: shortly patient is 32 year old Male, reported h/o mood spectrum disorder, substance abuse, 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 pt was in good behavioral control, pt was "better, but still anxious", pt currently off benzos or stimulants or pain meds, pt was educated about buspar, willing to take this medication"I was on it before it was helpful". pt said that his withdrawals are "better", pt was educated about his current meds, pt verbalized understanding. pt reported sleep to be improving. pt reported that he still feels depressed, hopeless. appetite is "good" pt said that he feels "overwhelmed about my social situation". pt does not want to go to rehab, has no insight into his addiction. pt tolerates medications well, no side effects observed or reported, aims 0, no EPS Impression: DSM 5 Diagnosis: r/o mdd r/o adjustment disorder r/o substance induced mood disorder Medication Change: Yes (vistaril PRN, buspar added) Medical Record Reviewed: Yes Mental Status Examination - Cognitive Function Orientation: Person, Place, Situation, Time Memory: Intact Attention: Poor Concentration: Poor Association: WNL Fund of Knowledge: WNL - Mood Mood: Depressed, Anxious - Affect Affect: Flat - Formal Thought Process Formal Thought Process: No Impairment - Suicidal Ideation Suicidal Ideation: No - Homicidal Ideation Homicidal Ideation: No Goal/Treatment Plan - Goal/Treatment Plan Need for Continued Stay: Remain at risks for inpatient hospitalization, Severe depression anxiety, Discharge may exacerbated symptoms, Failed transitioning, Severe functional impairment Progress Toward Problem(s) and Goals/Treatment Plan: Milieu/structure/supportive therapy Medical consult will be considered SW consultation for discharge plan and social issues Med management meds confirmed no controlled substances will be given to the pt neurontin 600mg po tid Clonidine( correction to my previous note, not klonopin but clonidine) 0.1 mg twice a day as needed for withdrawals vistaril 50mg po qid prn for anxiety buspar 5mg po tid for anxiety remeron 30mg po hs for depression/insomnia depakote 500mg po bod for mood stabilization seroquel 100mg po bid for mood stabilization wellbutrin for depression Family involvement Follow up on labs Will monitor closely Pt was educated about risk/benefits and alternatives of medications, coping strategies (safety plan, suicide prevention), relapse prevention, importance of follow up with psychiatrist and therapist, stay away from drugs/alcohol/smoking Estimated Date of D/C: 02/22/18
[2018-02-22 07:24] VITALS: O2SAT 78
[2018-02-22] MEDS: Divalproex 250 mg DR (BID formulation) PO SCH ×2 (08:16→17:17)
--- NOTE | 2018-02-22 16:09 | PCM.PYCHPN ---
Psychiatric Progress Note - Psychiatric Progress Note Patient seen today, length of contact: 30min Patient Chief Complaint: "I feel little better, but anxious" Problems Identified/Issues Discussed: Suicide/ homicide prevention, past psychiatric h/o, current psychiatric symptoms , medical problems, risk/benefits and alternatives of medications, medications compliance, coping strategies, substance abuse h/o, relapse prevention, importance of follow up with psychiatrist and therapist, discharge plan. Medical Problems: see HPI Diagnostic Results: 02/15/18 13:45 02/15/18 13:45 Lab Results 02/16/18 06:10: RPR Nonreactive 02/16/18 06:10: Free T4 1.32, TSH 3rd Generation 0.56 02/16/18 06:10: Fasting Glucose 96, Triglycerides 90, Cholesterol 185, LDL Cholesterol Direct 125, HDL Cholesterol 33 02/15/18 13:45: Alcohol, Quantitative < 10 02/15/18 13:45: Salicylates < 1 L, Acetaminophen < 10.0 L 02/15/18 13:45: Urine Opiates Screen Negative, Urine Methadone Screen Negative, Ur Barbiturates Screen Negative, Ur Phencyclidine Scrn Negative, Ur Amphetamines Screen Negative, U Benzodiazepines Scrn Negative, U Oth Cocaine Metabols Negative, U Cannabinoids Screen Positive H 02/15/18 13:45: Sodium 143, Potassium 3.0 L, Chloride 103, Carbon Dioxide 26, Anion Gap 17, BUN 8, Creatinine 0.7 L, Est GFR ( Amer) > 60, Est GFR (Non -Af Amer) > 60, Random Glucose 96, Calcium 9.7, Total Bilirubin 1.2, AST 16 L, ALT 22, Alkaline Phosphatase 82, Total Protein 8.3, Albumin 4.7, Globulin 3.5, Albumin/Globulin Ratio 1.3 02/15/18 13:45: Urine Color Yellow, Urine Appearance Clear, Urine pH 7.0, Ur Specific [place] 1.010, Urine Protein Negative, Urine Glucose (UA) Negative, Urine Ketones 15 H, Urine Blood Negative, Urine Nitrate Negative, Urine Bilirubin Negative, Urine Urobilinogen 0.2, Ur Leukocyte Esterase Small H, Urine RBC Negative, Urine WBC 1 - 3, Ur Epithelial Cells 0 - 2, Urine Bacteria Small 02/15/18 13:45: WBC 10.3, RBC 5.69, Hgb 16.3, Hct 46.6, MCV 81.9, MCH 28.6, MCHC 35.0, RDW 13.9, Plt Count 166, MPV 11.1 H, Gran % 75.0 H, Lymph % (Auto) 21.2 L, [place] % (Auto) 3.4, Eos % (Auto) 0.3 L, Baso % (Auto) 0.1, Gran # 7.74 H , Lymph # (Auto) 2.2, [place] # (Auto) 0.4, Eos # (Auto) 0.0, Baso # (Auto) 0.01 Vital Signs Temp Pulse Resp BP Pulse Ox 02/17/18 07:00 97.6 F 63 20 110/70 02/16/18 07:18 97.7 F 57 L 20 02/15/18 18:30 16 02/15/18 17:47 100 02/15/18 17:00 77 17 125/78 100 02/15/18 15:32 82 17 128/80 99 02/15/18 13:18 98.5 F 87 18 131/85 100 DSM 5 Symptoms Update: shortly patient is 32 year old Male, reported h/o mood spectrum disorder, substance abuse, 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, came to [facility] yesterday looking for help for his depressive symptoms, possible suicidal ideation, pt reported prior to come to the hospital he crossed the line at [facility], pt also has h/o pain/stimulat/benzodiazepines "stolen", pt was not compliant with meds for 5- 6days prior to this admission, pt required further evaluation and stabilization , meds adjustment. pt was in good behavioral control, pt was "better, but still anxious", pt currently off benzos or stimulants or pain meds, pt keeps asking to increase all of his medications, med seeking behavior. pt was asking to increase his vistaril, but pt was educated about potential side effects, pt agreed. pt was educated about buspar, willing to take this medication"I was on it before it was helpful". pt said that his withdrawals are "better", pt was educated about his current meds, pt verbalized understanding. pt reported sleep to be improving. pt reported that he still feels depressed, hopeless "but it is all about my living and home situation" appetite is "good" pt said that he feels "overwhelmed about my social situation". pt does not want to go to rehab, has no insight into his addiction. pt tolerates medications well, no side effects observed or reported, aims 0, no EPS Impression: DSM 5 Diagnosis: r/o mdd r/o adjustment disorder r/o substance induced mood disorder Medication Change: Yes (buspar added yesterday) Medical Record Reviewed: Yes Mental Status Examination - Cognitive Function Orientation: Person, Place, Situation, Time Memory: Intact Attention: Poor Concentration: Poor Association: WNL Fund of Knowledge: WNL - Mood Mood: Depressed, Anxious - Affect Affect: Flat - Formal Thought Process Formal Thought Process: No Impairment - Suicidal Ideation Suicidal Ideation: No - Homicidal Ideation Homicidal Ideation: No Goal/Treatment Plan - Goal/Treatment Plan Need for Continued Stay: Remain at risks for inpatient hospitalization, Severe depression anxiety, Discharge may exacerbated symptoms, Failed transitioning, Severe functional impairment Progress Toward Problem(s) and Goals/Treatment Plan: Milieu/structure/supportive therapy Medical consult will be considered SW consultation for discharge plan and social issues Med management meds confirmed no controlled substances will be given to the pt neurontin 600mg po tid Clonidine( correction to my previous note, not klonopin but clonidine) 0.1 mg twice a day as needed for withdrawals vistaril 50mg po qid prn for anxiety buspar 5mg po tid for anxiety remeron 30mg po hs for depression/insomnia depakote 500mg po bod for mood stabilization seroquel 100mg po bid for mood stabilization wellbutrin for depression Family involvement Follow up on labs Will monitor closely Pt was educated about risk/benefits and alternatives of medications, coping strategies (safety plan, suicide prevention), relapse prevention, importance of follow up with psychiatrist and therapist, stay away from drugs/alcohol/smoking Estimated Date of D/C: 02/22/18
[2018-02-23] MEDS: Divalproex 250 mg DR (BID formulation) PO SCH ×2 (08:10→17:00)
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
[2018-02-24 07:04] VITALS: RESP 20
[2018-02-24] MEDS: Divalproex 250 mg DR (BID formulation) PO SCH ×2 (08:15→16:15)
--- NOTE | 2018-02-24 08:47 | PCM.PYCHPN ---
Psychiatric Progress Note - Psychiatric Progress Note Patient seen today, length of contact: 30 min Patient Chief Complaint: "okay, I am getting used to the medications. Anxiety is still problematic" Problems Identified/Issues Discussed: I reviewed assessment and recent notes. I met with patient at bedside. He is groomed, alert and well-oriented to month, year, location and circumstances. He cooperates with my questioning and reports that he is better and "getting used to the medications". Patient still feels anxiety is "problematic" but expresses relief that he is "off the xanax". P He denies any issues with his medications and sleep was fair. His affect is constricted but appropriately reactive. Patient is pleasant and smiles at times during our interview. Responses are relevant, consistent and logical. There is no evidence of perceptual disturbance. Staff notes indicate that patient has been visible and social on the unit. He appears a little anxious, congruent to his reported mood. He has been in good behavioral control without any major issues overnight. Diagnostic Results: r/o mdd r/o adjustment disorder r/o substance induced mood disorder Medication Change: Yes (buspar added yesterday) Medical Record Reviewed: Yes Mental Status Examination - Cognitive Function Orientation: Person, Place, Situation, Time Memory: Intact Attention: Poor (some improvement) Concentration: Poor (some improvement) Association: WNL Fund of Knowledge: WNL - Mood Mood: Depressed (I'm doing better), Anxious (but still anxious) - Affect Affect: Constricted (but more reactive and mood congruent) - Speech Speech: Appropriate - Formal Thought Process Formal Thought Process: No Impairment - Suicidal Ideation Suicidal Ideation: No - Homicidal Ideation Homicidal Ideation: No Goal/Treatment Plan - Goal/Treatment Plan Need for Continued Stay: Remain at risks for inpatient hospitalization, Severe depression anxiety, Discharge may exacerbated symptoms, Failed transitioning, Severe functional impairment Progress Toward Problem(s) and Goals/Treatment Plan: * c/w current tx and medications * No new floor labs today * Vitals reviewed and noted below: Selected Entries 02/24/18 07:03 Temperature 97.9 F Pulse Rate 105 H Respiratory 20 Rate Blood Pressure 114/68 Estimated Date of D/C: 02/22/18
[2018-02-24 15:50] VITALS: PULSE 96
[2018-02-25 07:08] VITALS: BP 106/71; TEMP 98.1
[2018-02-25] MEDS: Divalproex 250 mg DR (BID formulation) PO SCH (08:03)
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
== END 2018-02-25 14:34 | disposition home or self-care (01) | DRG 881 ==
LOC: ED 13:18 → ERH 16:19 → PSYC 17:57
PROVIDERS: ADMIT Psychiatry & Neurology Psychiatry; ATTEND Psychiatry & Neurology Psychiatry
DX: F32.9 Major depressive disorder, single episode, unspecified (principal); F43.23 Adjustment disorder with mixed anxiety and depressed mood; F19.10 Other psychoactive substance abuse, uncomplicated; F90.9 Attention-deficit hyperactivity disorder, unspecified type; G40.909 Epilepsy, unspecified, not intractable, without status epilepticus; F17.200 Nicotine dependence, unspecified, uncomplicated; Z59.0 Homelessness; Z76.5 Malingerer [conscious simulation]

== ENCOUNTER 2018-11-27 22:30 | Observation (INO) | payer OTHER ==
--- NOTE | 2018-11-27 23:21 | ED PDOC ---
Arrival/HPI - General Chief Complaint: Altered Mental Status Time Seen by Provider: 11/27/18 22:53 Historian: Patient - History of Present Illness Narrative History of Present Illness (Text): 11/27/18 23:11 A 32 year old male, whose past medical history includes seizure disorder, ETOH abuse, and cardiomyopathy, is brought into the ED by EMS for further evaluation after being [place]. The patient was with his friend who stated that the patient passed out. Patient admitted to having only a couple of drinks tonight. He does not recollect what happened. Patient possibly may have had a seizure, but unclear. Patient state that he is non-compliant with his seizure medication. He states that it has a pro-seizure effect and was instructed to take Keppra, but patient is non-compliant with any of his medications. Patient is currently asymptomatic. He denies fevers, chills, headache, dizziness, chest pain, shortness of breath, dyspnea on exertion, cough, abdominal pain, nausea, vomiting, diarrhea, back pain, neck pain, urinary/bowel changes, or any other complaint. Time/Duration: Prior to Arrival Symptom Onset: Sudden Symptom Course: Unchanged Activities at Onset: Rest, Light Context: Street Past Medical History - Provider Review Nursing Documentation Reviewed: Yes - Past History Past History: No Previous - Infectious Disease Hx of Infectious Diseases: None - Tetanus Immunization Tetanus Immunization: Unknown - Past Medical History Past Medical History: No Previous - Cardiac Hx Cardiac Disorders: No Hx Congestive Heart Failure: Yes Hx Hypertension: No - Pulmonary Hx Tuberculosis: No - Neurological HX Cerebrovascular Accident: No Hx Seizures: Yes - HEENT Hx HEENT Disorder: No - Renal Hx Renal Disorder: No - Endocrine/Metabolic Hx Endocrine Disorders: No - Hematological/Oncological Hx Cancer: No - Integumentary Hx Dermatological Disorder: No - Musculoskeletal/Rheumatological Hx Musculoskeletal Disorders: No - Gastrointestinal Hx Gastrointestinal Disorders: No - Genitourinary/Gynecological Hx Sexually Transmitted Diseases: No - Psychiatric Hx Depression: Yes (MANIC DEPRESSION) Hx Substance Use: Yes - Past Surgical History Past Surgical History: Non-Contributing - Surgical History Hx Orthopedic Surgery: Yes (left hand cyst removal) Other/Comment: sepsis seconadary to appendicitis. 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 - Anesthesia Hx Anesthesia: Yes Hx Anesthesia Reactions: No Hx Malignant Hyperthermia: No - Suicidal Assessment Feels Threatened In Home Enviroment: No Family/Social History - Physician Review Nursing Documentation Reviewed: Yes Family/Social History: No Known Family HX Smoking Status: Light Smoker < 10 Cigarettes Daily Hx Alcohol Use: No Hx Substance Use: Yes Substance used: marijuana Hx Substance Use Treatment: No Allergies/Home Meds Allergies/Adverse Reactions: Allergies No Known Allergies Allergy (Verified 02/15/18 18:16) Home Medications: Home Meds Medication Instructions Recorded Confirmed Unobtainable 05/03/18 05/03/18 Review of Systems - Physician Review All systems were reviewed & negative as marked: Yes - Review of Systems Constitutional: absent: Fevers Respiratory: absent: SOB, Cough Cardiovascular: absent: Chest Pain, CAMPBELL Gastrointestinal: absent: Abdominal Pain, Stool Changes, Diarrhea, Nausea, Vomiting Genitourinary Male: absent: Urinary Output Changes Musculoskeletal: absent: Back Pain, Neck Pain Neurological: absent: Headache, Dizziness Physical Exam Vital Signs Pulse Ox 11/27/18 22:39 99 - Systems Exam Head: Present: Atraumatic, Normocephalic Pupils: Present: PERRL Extroacular Muscles: Present: EOMI Conjunctiva: Present: Normal Mouth: Present: Moist Mucous Membranes Neck: Present: Normal Range of Motion Respiratory/Chest: Present: Clear to Auscultation, Good Air Exchange. No: Respiratory Distress, Accessory Muscle Use Cardiovascular: Present: Regular Rate and Rhythm, Normal S1, S2. No: Murmurs Abdomen: No: Tenderness, Distention, Peritoneal Signs Back: Present: Normal Inspection Upper Extremity: Present: Normal Inspection. No: Cyanosis, Edema Lower Extremity: Present: Normal Inspection. No: Edema Neurological: Present: GCS=15, CN II-XII Intact, Speech Normal Skin: Present: Warm, Dry, Normal Color. No: Rashes Psychiatric: Present: Alert, Oriented x 3, Normal Insight, Normal Concentration Medical Decision Making ED Course and Treatment: 11/27/18 23:22 Impression: A 32 year old male, with a history of seizure disorder, is brought into the ED via EMS for further evaluation after being found unconscious on the ground. Plan: -- Head CT -- EKG -- Chest X-ray -- Labs -- Reassess and disposition Prior Visits: Notes and results from previous visits were reviewed. Progress Notes: EKG: Ordered, reviewed, and independently interpreted the EKG. Rate : 100 BPM Rhythm : NSR Interpretation : No acute changes. 11/28/18 00:34: Chest X-ray read and interpreted by me shows no acute process. CT SCAN OF THE BRAIN WITHOUT IV CONTRAST IMPRESSION: Normal unenhanced CT scan of the brain. Electronically signed on Nov 28, 2018 12:49:19 AM EDT by: Bonnie Chambers M.D., Certified by ABR, MSK, Neuroradiology 11/28/18 02:08: Case discussed in detail with Dr. Hernandez and paramedical aide who accept patient to hospitalist's service. - Lab Interpretations I have reviewed the lab results: Yes - RAD Interpretation Radiology Orders: 11/27/18 23:07 HEAD W/O CONTRAST [CT] Stat CHEST PORTABLE [RAD] Stat - EKG Interpretation Interpreted by ED Physician: Yes Type: 12 lead EKG - Scribe Statement The provider has reviewed the documentation as recorded by the Scribe Jesenia Mcduffie Provider Scribe Attestation: All medical record entries made by the Scribe were at my direction and personally dictated by me. I have reviewed the chart and agree that the record accurately reflects my personal performance of the history, physical exam, medical decision making, and the department course for this patient. I have also personally directed, reviewed, and agree with the discharge instructions and disposition. Disposition/Present on Arrival - Present on Arrival Any Indicators Present on Arrival: No History of DVT/PE: No History of Uncontrolled Diabetes: No Urinary Catheter: No History of Decub. Ulcer: No History Surgical Site Infection Following: None - Disposition Have Diagnosis and Disposition been Completed?: Yes Diagnosis: Syncope Disposition: HOSPITALIZED Disposition Time: 02:08 Patient Plan: Observation Patient Problems: Current Active Problems Problem Status Onset Syncope Acute Condition: STABLE
[2018-11-27 23:47] LABS: MEAN CELL VOLUME 87.9 fl (80.0-105.0); MEAN CORPUSCULAR HEMOGLOBIN 30.3 pg (25.0-35.0); MEAN CORPUSCULAR HGB CONC 34.4 g/dl (31.0-37.0); MEAN PLATELET VOLUME 10.4 fl (7.0-11.0); RBC 5.95 10^6/uL (3.5-6.1); WHITE BLOOD COUNT 8.1 10^3/uL (4.5-11.0)
[2018-11-27 23:50] LABS: ALB/GLOB RATIO 1.3 (1.1-1.8); ALBUMIN 4.9 g/dL (3.0-4.8); BLOOD UREA NITROGEN 9 mg/dL (7-21); CALCIUM 9.4 mg/dL (8.4-10.5); GFR NON-AFRICAN AMERICAN > 60
[2018-11-28 00:02] LABS: TROPONIN I < 0.01 ng/mL
[2018-11-28 00:03] LABS: ALT/SGPT 13 U/L (7-56); AST/SGOT 32 U/L (17-59)
[2018-11-28 02:01] VITALS: O2SAT 95
--- NOTE | 2018-11-28 02:44 | CP.PCM.HP ---
<Sonu Cobos - Last Filed: 11/28/18 02:34> History of Present Illness - History of Present Illness History of Present Illness: Dr Cobos H&P Hospitalist Service 32m pmhx of CVA 2016, CHF? ,Substance abuse, anxiety, seizures presents to [facility] after being found unresponsive and seizing after drinking alcohol. Pt does not remember the events and can only recall presenting to the ED. Pt reports a headache now, denies tongue bites or loss of bowel/bladder control. Pt says this is the 4th time he's had a seizure after drinking. Pt says the last time he took his Keppra was over 2 days ago and has been non compliant with it over the last few months. Pt says it makes him nauseous and gives him headaches. Pt has been non compliant with neuro follow-up as well. Pt reports he;s been drinking more ETOH lately since he lost child custody. Pt had his teeth taken out for what he believes was because of his seizures. Pt is inconsistent and unreliable histori an, also unsure of his home meds/dosages. Pt has most of his records at [facility] ROS: Pos+ TOVAR, Syncope, Seizures, possible head trauma, chronic L sided Up and low Ext weakness, med non compliance, etoh and street marijuana use. Neg- CP SOB FC NV, tongue bite, loss of bowels/bladder control, recent i llness, changes/new medication, neck/back pain Neuro: Dr Mcpherson PMH: CVA 2016, CHF? ,Substance abuse, anxiety, seizures, Surgical Hx: Right hand cyst surgery, left hand ganglion cyst surgery Family Hx: Non-contributory Allergies: NKDA SH: 1/2 ppd tobacco use, daily marijuana use, frequent EtOH use, hx opiate dependance Meds: non compliant Keppra 250 BID? Present on Admission - Present on Admission Any Indicators Present on Admission: No Review of Systems - Review of Systems All systems: reviewed and no additional remarkable complaints except (as per HPI) Past Patient History - Infectious Disease Hx of Infectious Diseases: None - Tetanus Immunizations Tetanus Immunization: Unknown - Past Social History Smoking Status: Light Smoker < 10 Cigarettes Daily - CARDIAC Hx Cardiac Disorders: No Hx Congestive Heart Failure: Yes Hx Hypertension: No - PULMONARY Hx Tuberculosis: No - NEUROLOGICAL HX Cerebrovascular Accident: No Hx Seizures: Yes - HEENT Hx HEENT Problems: No - RENAL Hx Chronic Kidney Disease: No - ENDOCRINE/METABOLIC Hx Endocrine Disorders: No - HEMATOLOGICAL/ONCOLOGICAL Hx Cancer: No - INTEGUMENTARY Hx Dermatological Problems: No - MUSCULOSKELETAL/RHEUMATOLOGICAL Hx Musculoskeletal Disorders: No - GASTROINTESTINAL Hx Gastrointestinal Disorders: No - GENITOURINARY/GYNECOLOGICAL Hx Sexually Transmitted Disorders: No - PSYCHIATRIC Hx Depression: Yes (MANIC DEPRESSION) Hx Substance Use: Yes - SURGICAL HISTORY Hx Orthopedic Surgery: Yes (left hand cyst removal) Other/Comment: sepsis seconadary to appendicitis. 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 - ANESTHESIA Hx Anesthesia: Yes Hx Anesthesia Reactions: No Hx Malignant Hyperthermia: No Meds Allergies/Adverse Reactions: Allergies Allergy/AdvReac Type Severity Reaction Status Date / Time No Known Allergies Allergy Verified 02/15/18 18:16 Physical Exam - Additional Findings Additional findings: - Constitutional Appears: Non-toxic, No Acute Distress - Head Exam Head Exam: ATRAUMATIC, NORMAL INSPECTION, NORMOCEPHALIC - ENT Exam ENT Exam: Mucous Membranes Moist, No dentition - Respiratory Exam Respiratory Exam: Clear to Auscultation Bilateral, NORMAL BREATHING PATTERN. absent: Decreased Breath Sounds, Rhonchi, Wheezes - Cardiovascular Exam Cardiovascular Exam: RRR, +S1, +S2 - GI/Abdominal Exam GI & Abdominal Exam: Normal Bowel Sounds, Soft. absent: Tenderness - Neurological Exam Neurological exam: Alert, CN II-XII Intact, Oriented x3 Additional comments: Left side upper and lower ext muscle strength 4/5 - Psychiatric Exam Psychiatric exam: Normal Affect, Normal Mood - Skin Skin Exam: Intact, Normal Color, Warm Results - Vital Signs Recent Vital Signs: Last Vital Signs Temp 98.2 F 11/28/18 02:00 Pulse 83 11/28/18 02:00 Resp 17 11/28/18 02:00 BP 100/51 L 11/28/18 02:00 Pulse Ox 95 11/28/18 02:00 - Labs Result Diagrams: 11/27/18 22:57 11/27/18 22:57 Labs: Laboratory Results - last 24 hr 11/27/18 11/27/18 11/27/18 22:57 22:57 22:57 WBC 8.1 RBC 5.95 Hgb 18.0 Hct 52.3 H MCV 87.9 D MCH 30.3 MCHC 34.4 RDW 14.0 Plt Count 190 MPV 10.4 Sodium 145 Potassium 3.9 Chloride 105 Carbon Dioxide 26 Anion Gap 18 BUN 9 Creatinine 0.7 L Est GFR ( Amer) > 60 Est GFR (Non-Af Amer) > 60 Random Glucose 84 Calcium 9.4 Total Bilirubin 0.4 AST 32 ALT 13 Alkaline Phosphatase 75 Lactate Dehydrogenase 484 Total Creatine Kinase 95 Troponin I < 0.01 Total Protein 8.6 H Albumin 4.9 H Globulin 3.8 Albumin/Globulin Ratio 1.3 Alcohol, Quantitative 235 H Assessment & Plan - Assessment and Plan (Free Text) Assessment: 32M pmhx of seizures, CVA, med noncompliance admitted for syncope and seizures with ETOH intoxication Plan: Syncope/seizure - Prelim Normal unenhanced CT scan of the brain: f/u official read - Blood alc 235 - UDS pos for cannabis - Ativan 1 q2 prn for seizure activity - CIWA protocol - Aspiration and Fall Risk Precautions - Neuro Dr Goodman consulted: f/u recs - hold home anti epileptics pending neuro recs Polysubstance abuse: ETOH / Marijuana - Psych Dr Trent consulted: f/u recs - monitor for etoh withdrawls - ativan prn Hx of CVA - obtain records from [facility] - fall risk protocol Hx of possible CHF/ cardiomyopathy - Pt poor historian/ unsure of his dx - obtain records from [facility] PPx: HHD fall/asp precautions CK PGY1 d/w attending <Radha Hernandez - Last Filed: 11/28/18 06:41> Results - Vital Signs Recent Vital Signs: Last Vital Signs Temp 98.2 F 11/28/18 02:00 Pulse 83 11/28/18 02:00 Resp 18 11/28/18 03:47 BP 100/51 L 11/28/18 02:00 Pulse Ox 95 11/28/18 02:00 - Labs Result Diagrams: 11/27/18 22:57 11/27/18 22:57 Labs: Laboratory Results - last 24 hr 11/27/18 11/27/18 11/27/18 22:57 22:57 22:57 WBC 8.1 RBC 5.95 Hgb 18.0 Hct 52.3 H MCV 87.9 D MCH 30.3 MCHC 34.4 RDW 14.0 Plt Count 190 MPV 10.4 Sodium 145 Potassium 3.9 Chloride 105 Carbon Dioxide 26 Anion Gap 18 BUN 9 Creatinine 0.7 L Est GFR ( Amer) > 60 Est GFR (Non-Af Amer) > 60 Random Glucose 84 Calcium 9.4 Magnesium Total Bilirubin 0.4 AST 32 ALT 13 Alkaline Phosphatase 75 Lactate Dehydrogenase 484 Total Creatine Kinase 95 Troponin I < 0.01 Total Protein 8.6 H Albumin 4.9 H Globulin 3.8 Albumin/Globulin Ratio 1.3 Urine Opiates Screen Urine Methadone Screen Ur Barbiturates Screen Ur Phencyclidine Scrn Ur Amphetamines Screen U Benzodiazepines Scrn U Oth Cocaine Metabols U Cannabinoids Screen Alcohol, Quantitative 235 H 11/28/18 11/28/18 02:30 02:31 WBC RBC Hgb Hct MCV MCH MCHC RDW Plt Count MPV Sodium Potassium Chloride Carbon Dioxide Anion Gap BUN Creatinine Est GFR ( Amer) Est GFR (Non-Af Amer) Random Glucose Calcium Magnesium 2.1 Total Bilirubin AST ALT Alkaline Phosphatase Lactate Dehydrogenase Total Creatine Kinase Troponin I Total Protein Albumin Globulin Albumin/Globulin Ratio Urine Opiates Screen Negative Urine Methadone Screen Negative Ur Barbiturates Screen Negative Ur Phencyclidine Scrn Negative Ur Amphetamines Screen Negative U Benzodiazepines Scrn Negative U Oth Cocaine Metabols Negative U Cannabinoids Screen Positive H Alcohol, Quantitative Attending/Attestation - Attestation I have personally seen and examined this patient.: Yes I have fully participated in the care of the patient.: Yes I have reviewed all pertinent clinical information: Yes Notes (Text): 11/28/18 06:40 Seen and examined. Discussed with resident. A&P as above. Pt. is noncompliant with Kemansi. Obtain Neurology consult for medication recommendation.
[2018-11-28 03:51] VITALS: BMI 24.2
[2018-11-28 04:27] LABS: BARBITURATES, UR NEGATIVE (NEGATIVE); BENZODIAZEPINES, UR NEGATIVE (NEGATIVE); OPIATES, UR NEGATIVE (NEGATIVE); PHENCYCLIDINE, UR NEGATIVE (NEGATIVE)
[2018-11-28 07:49] LABS: BASO # 0.04 K/mm3 (0.0-2.0); BASO % 0.5 % (0.0-3.0); EOS # 0.2 (0.0-0.7); EOS % 2.4 % (1.5-5.0); HEMOGLOBIN 16.8 g/dL (14.0-18.0); LYMPH # 2.7 (1.2-3.4); LYMPH % 34.3 % (22.0-35.0); MEAN CORPUSCULAR HEMOGLOBIN 29.7 pg (25.0-35.0); MEAN CORPUSCULAR HGB CONC 33.7 g/dl (31.0-37.0); MEAN PLATELET VOLUME 10.4 fl (7.0-11.0); MONO # 0.5 (0.1-0.6); MONO % 6.2 % (1.0-6.0); RBC 5.66 10^6/uL (3.5-6.1); WHITE BLOOD COUNT 7.9 10^3/uL (4.5-11.0)
[2018-11-28 08:14] LABS: ALB/GLOB RATIO 1.3 (1.1-1.8); ALBUMIN 4.2 g/dL (3.0-4.8); ALT/SGPT 12 U/L (7-56); AST/SGOT 22 U/L (17-59); BLOOD UREA NITROGEN 10 mg/dL (7-21); CALCIUM 8.8 mg/dL (8.4-10.5); GFR NON-AFRICAN AMERICAN > 60
--- NOTE | 2018-11-28 08:36 | RAD ---
HISTORY: syncope COMPARISON: Chest x-ray 02/15/18 TECHNIQUE: Chest, one view. FINDINGS: LUNGS: No focal consolidation. Please note that chest x-ray has limited sensitivity for the detection of pulmonary masses. PLEURA: No significant pleural effusion identified. No definite pneumothorax . CARDIOVASCULAR: Heart size appears within normal limits. No significant atherosclerotic calcification present. OSSEOUS STRUCTURES: No acute osseous abnormality identified. VISUALIZED UPPER ABDOMEN: Unremarkable. OTHER FINDINGS: None. IMPRESSION: No focal consolidation.
--- NOTE | 2018-11-28 09:28 | CT ---
Date of service: 11/28/2018 PROCEDURE: CT HEAD WITHOUT CONTRAST. HISTORY: syncope COMPARISON: Noncontrast head CT performed 06/04/17 TECHNIQUE: Axial computed tomography images were obtained through the head/brain without intravenous contrast. Radiation dose: Total exam DLP = 862.16 mGy-cm. This CT exam was performed using one or more of the following dose reduction techniques: Automated exposure control, adjustment of the mA and/or kV according to patient size, and/or use of iterative reconstruction technique. FINDINGS: HEMORRHAGE: No intracranial hemorrhage. BRAIN: No mass effect or edema. No atrophy or chronic microvascular ischemic changes. VENTRICLES: No hydrocephalus. CALVARIUM: Unremarkable. PARANASAL SINUSES: Unremarkable as visualized. No significant inflammatory changes. MASTOID AIR CELLS: Unremarkable as visualized. No inflammatory changes. OTHER FINDINGS: None. IMPRESSION: No acute intracranial pathology identified. Preliminary impression was provided by [email or web address].
--- NOTE | 2018-11-28 10:13 | CARD ---
APPROVED REPORT Date of service: 11/27/2018 EKG Measurement Heart [id number] <Conclusion> Normal sinus rhythm Normal ECG
[2018-11-28 13:56] VITALS: BP 126/80; RESP 21; TEMP 98.7
[2018-11-28 15:05] VITALS: PULSE 89
--- NOTE | 2018-11-28 16:08 | CP.PCM.DIS ---
<Anuj Tejada - Last Filed: 11/28/18 16:53> Provider - Provider Date of Admission: 11/28/18 02:08 Attending physician: Rama Weber MD Primary care physician: NO PRIMARY CARE PROVIDER Consults: 11/28/18 03:02 Neurology Consult Stat Comment: reports adverse rx to keppra Consulting Provider: Radha Goodman Consulting Physician: Radha Goodman Reason for Consult: seizure, syncope w/ ETOH intox, hx of CVA 2016, med noncompli Psychiatry Consult Stat Comment: reports ETOH use freq Consulting Provider: Jay Trent Consulting Physician: Jay Trent Reason for Consult: seizure, syncope w/ ETOH intox, hx of CVA 2016, med noncompli Time Spent in preparation of Discharge (in minutes): 35 Hospital Course - Lab Results Lab Results: Most Recent Lab Values WBC 7.9 10^3/uL (4.5-11.0) 11/28/18 07:00 RBC 5.66 10^6/uL (3.5-6.1) 11/28/18 07:00 Hgb 16.8 g/dL (14.0-18.0) 11/28/18 07:00 Hct 49.8 % (42.0-52.0) 11/28/18 07:00 MCV 88.0 fl (80.0-105.0) 11/28/18 07:00 MCH 29.7 pg (25.0-35.0) 11/28/18 07:00 MCHC 33.7 g/dl (31.0-37.0) 11/28/18 07:00 RDW 14.0 % (11.5-14.5) 11/28/18 07:00 Plt Count 181 10^3/uL (120.0-450.0) 11/28/18 07:00 MPV 10.4 fl (7.0-11.0) 11/28/18 07:00 Neut % (Auto) 56.6 % (50.0-68.0) 11/28/18 07:00 Lymph % (Auto) 34.3 % (22.0-35.0) 11/28/18 07:00 Kendall % (Auto) 6.2 % (1.0-6.0) H 11/28/18 07:00 Eos % (Auto) 2.4 % (1.5-5.0) 11/28/18 07:00 Baso % (Auto) 0.5 % (0.0-3.0) 11/28/18 07:00 Lymph # (Auto) 2.7 (1.2-3.4) 11/28/18 07:00 Kendall # (Auto) 0.5 (0.1-0.6) 11/28/18 07:00 Eos # (Auto) 0.2 (0.0-0.7) 11/28/18 07:00 Baso # (Auto) 0.04 K/mm3 (0.0-2.0) 11/28/18 07:00 Absolute Neuts (auto) 4.50 (1.4-6.5) 11/28/18 07:00 Sodium 143 mmol/L (132-148) 11/28/18 07:00 Potassium 3.8 mmol/L (3.6-5.0) 11/28/18 07:00 Chloride 106 mmol/L (98-107) 11/28/18 07:00 Carbon Dioxide 25 mmol/L (21-33) 11/28/18 07:00 Anion Gap 17 (10-20) 11/28/18 07:00 BUN 10 mg/dL (7-21) 11/28/18 07:00 Creatinine 0.7 mg/dl (0.8-1.5) L 11/28/18 07:00 Est GFR ( Amer) > 60 11/28/18 07:00 Est GFR (Non-Af Amer) > 60 11/28/18 07:00 Random Glucose 80 mg/dL (70-110) 11/28/18 07:00 Calcium 8.8 mg/dL (8.4-10.5) 11/28/18 07:00 Magnesium 2.1 mg/dL (1.7-2.2) 11/28/18 02:30 Total Bilirubin 0.4 mg/dL (0.2-1.3) 11/28/18 07:00 AST 22 U/L (17-59) 11/28/18 07:00 ALT 12 U/L (7-56) 11/28/18 07:00 Alkaline Phosphatase 71 U/L (38-126) 11/28/18 07:00 Lactate Dehydrogenase 484 U/L (333-699) 11/27/18 22:57 Total Creatine Kinase 95 U/L (35-230) 11/27/18 22:57 Troponin I < 0.01 ng/mL 11/27/18 22:57 Total Protein 7.5 g/dL (5.8-8.3) 11/28/18 07:00 Albumin 4.2 g/dL (3.0-4.8) 11/28/18 07:00 Globulin 3.3 gm/dL 11/28/18 07:00 Albumin/Globulin Ratio 1.3 (1.1-1.8) 11/28/18 07:00 Urine Opiates Screen Negative (NEGATIVE) 11/28/18 02:31 Urine Methadone Screen Negative (NEGATIVE) 11/28/18 02:31 Ur Barbiturates Screen Negative (NEGATIVE) 11/28/18 02:31 Ur Phencyclidine Scrn Negative (NEGATIVE) 11/28/18 02:31 Ur Amphetamines Screen Negative (NEGATIVE) 11/28/18 02:31 U Benzodiazepines Scrn Negative (NEGATIVE) 11/28/18 02:31 U Oth Cocaine Metabols Negative (NEGATIVE) 11/28/18 02:31 U Cannabinoids Screen Positive (NEGATIVE) H 11/28/18 02:31 Alcohol, Quantitative 235 mg/dL (0-10) H 11/27/18 22:57 Physical Exam - Constitutional Appears: Non-toxic, No Acute Distress - Head Exam Head Exam: ATRAUMATIC, NORMAL INSPECTION, NORMOCEPHALIC - ENT Exam ENT Exam: Mucous Membranes Moist, No dentition - Respiratory Exam Respiratory Exam: Clear to Auscultation Bilateral, NORMAL BREATHING PATTERN. absent: Decreased Breath Sounds, Rhonchi, Wheezes - Cardiovascular Exam Cardiovascular Exam: Regular rhythm, +S1, +S2 - GI/Abdominal Exam GI & Abdominal Exam: Normal Bowel Sounds, Soft. absent: Tenderness, guarding - Neurological Exam Neurological exam: Alert, CN II-XII Intact, Oriented x3 Additional comments: No focal motor/sensory deficits noted - Psychiatric Exam Psychiatric exam: Normal Affect, Normal Mood - Skin Skin Exam: Intact, Normal Color, Warm - Hospital Course Hospital Course: Upon admission, 32 year old male with PMH of CVA 2016, CHF? ,Substance abuse, anxiety, seizures presents to [facility] after being found unresponsive and seizing after drinking alcohol. Pt does not remember the events and can only recall presenting to the ED. Pt reports a headache now, denies tongue bites or loss of bowel/bladder control. Pt says this is the 4th time he's had a seizure after drinking. Pt says the last time he took his Keppra was over 2 days ago and has been non compliant with it over the last few months. Pt says it makes him nauseous and gives him headaches. Pt has been non compliant with neuro follow-up as well. Pt reports he's been drinking more ETOH lately since he lost child custody. Pt had his teeth taken out for what he believes was because of his sei zures. Pt is inconsistent and unreliable historian, also unsure of his home meds/dosages. Pt has most of his records at [facility]. During hospital course, patient's CT head was unremarkable, afebrile, no WBC noted and alcohol level of 235. UDs positive for cannibinoids. Patient started on CIWA protocol, ativan prn, aspiration and fall risk precautions and given ativan chio. CXR was unremarkable. On the following day, patient desired to leave AMA. Benefits of staying in the hospital were explained to the hospital including improved prognosis and overall health. Risks of leaving the hospital were explained to the patient including worsening of known and unknown symptoms, permanent disability and possible and patient verbally acknowledged risks. Patient signed the AMA form and left against medical advise. Patient states he will follow up with his PMD and neurologist. Discharge Plan - Follow Up Plan Condition: STABLE Disposition: HOME/ ROUTINE Referrals: PCP,NO [Primary Care Provider] - <Radha Ya - Last Filed: 11/28/18 17:17> Provider - Provider Date of Admission: 11/28/18 02:08 Attending physician: Rama Weber MD Primary care physician: HARISH PRIMARY CARE PROVIDER Consults: 11/28/18 03:02 Neurology Consult Stat Comment: reports adverse rx to keppra Consulting Provider: Radha Goodman Consulting Physician: Radha Goodman Reason for Consult: seizure, syncope w/ ETOH intox, hx of CVA 2016, med noncompli Psychiatry Consult Stat Comment: reports ETOH use freq Consulting Provider: Jay Trent Consulting Physician: Jay Trent Reason for Consult: seizure, syncope w/ ETOH intox, hx of CVA 2016, [facility] Course - Lab Results Lab Results: Most Recent Lab Values WBC 7.9 10^3/uL (4.5-11.0) 11/28/18 07:00 RBC 5.66 10^6/uL (3.5-6.1) 11/28/18 07:00 Hgb 16.8 g/dL (14.0-18.0) 11/28/18 07:00 Hct 49.8 % (42.0-52.0) 11/28/18 07:00 MCV 88.0 fl (80.0-105.0) 11/28/18 07:00 MCH 29.7 pg (25.0-35.0) 11/28/18 07:00 MCHC 33.7 g/dl (31.0-37.0) 11/28/18 07:00 RDW 14.0 % (11.5-14.5) 11/28/18 07:00 Plt Count 181 10^3/uL (120.0-450.0) 11/28/18 07:00 MPV 10.4 fl (7.0-11.0) 11/28/18 07:00 Neut % (Auto) 56.6 % (50.0-68.0) 11/28/18 07:00 Lymph % (Auto) 34.3 % (22.0-35.0) 11/28/18 07:00 Kendall % (Auto) 6.2 % (1.0-6.0) H 11/28/18 07:00 Eos % (Auto) 2.4 % (1.5-5.0) 11/28/18 07:00 Baso % (Auto) 0.5 % (0.0-3.0) 11/28/18 07:00 Lymph # (Auto) 2.7 (1.2-3.4) 11/28/18 07:00 Kendall # (Auto) 0.5 (0.1-0.6) 11/28/18 07:00 Eos # (Auto) 0.2 (0.0-0.7) 11/28/18 07:00 Baso # (Auto) 0.04 K/mm3 (0.0-2.0) 11/28/18 07:00 Absolute Neuts (auto) 4.50 (1.4-6.5) 11/28/18 07:00 Sodium 143 mmol/L (132-148) 11/28/18 07:00 Potassium 3.8 mmol/L (3.6-5.0) 11/28/18 07:00 Chloride 106 mmol/L (98-107) 11/28/18 07:00 Carbon Dioxide 25 mmol/L (21-33) 11/28/18 07:00 Anion Gap 17 (10-20) 11/28/18 07:00 BUN 10 mg/dL (7-21) 11/28/18 07:00 Creatinine 0.7 mg/dl (0.8-1.5) L 11/28/18 07:00 Est GFR ( Amer) > 60 11/28/18 07:00 Est GFR (Non-Af Amer) > 60 11/28/18 07:00 Random Glucose 80 mg/dL (70-110) 11/28/18 07:00 Calcium 8.8 mg/dL (8.4-10.5) 11/28/18 07:00 Magnesium 2.1 mg/dL (1.7-2.2) 11/28/18 02:30 Total Bilirubin 0.4 mg/dL (0.2-1.3) 11/28/18 07:00 AST 22 U/L (17-59) 11/28/18 07:00 ALT 12 U/L (7-56) 11/28/18 07:00 Alkaline Phosphatase 71 U/L (38-126) 11/28/18 07:00 Lactate Dehydrogenase 484 U/L (333-699) 11/27/18 22:57 Total Creatine Kinase 95 U/L (35-230) 11/27/18 22:57 Troponin I < 0.01 ng/mL 11/27/18 22:57 Total Protein 7.5 g/dL (5.8-8.3) 11/28/18 07:00 Albumin 4.2 g/dL (3.0-4.8) 11/28/18 07:00 Globulin 3.3 gm/dL 11/28/18 07:00 Albumin/Globulin Ratio 1.3 (1.1-1.8) 11/28/18 07:00 Urine Opiates Screen Negative (NEGATIVE) 11/28/18 02:31 Urine Methadone Screen Negative (NEGATIVE) 11/28/18 02:31 Ur Barbiturates Screen Negative (NEGATIVE) 11/28/18 02:31 Ur Phencyclidine Scrn Negative (NEGATIVE) 11/28/18 02:31 Ur Amphetamines Screen Negative (NEGATIVE) 11/28/18 02:31 U Benzodiazepines Scrn Negative (NEGATIVE) 11/28/18 02:31 U Oth Cocaine Metabols Negative (NEGATIVE) 11/28/18 02:31 U Cannabinoids Screen Positive (NEGATIVE) H 11/28/18 02:31 Alcohol, Quantitative 235 mg/dL (0-10) H 11/27/18 22:57 Attending/Attestation - Attestation I have personally seen and examined this patient.: Yes I have fully participated in the care of the patient.: Yes I have reviewed all pertinent clinical information, including history, physical exam and plan: Yes Notes (Text): 11/28/18 17:15 Attending note; Patient seen and examined with resident this morning. Patient is alert and awake. Denies any chest pain, shortness of breath. Denies any nausea, vomiting Tolerating diet well Ambulating fine. patient is a 32-year-old male with a past medical history of alcohol abuse, anxiety depression is admitted for acute alcohol intoxication and possible seizure-like activity. Currently patient is alert and awake. 1.Alcohol abuse; Complete alcohol cessation is strongly advised . Advised to follow-up with AA meetings in a rehab. 2. Anxiety depression; Patient does not take medications properly. Advised to follow-up with Dr. Trent as outpatient. 3. History of seizure disorder; noncompliance with medication . Patient does not take Keppra as prescribed. 4. Noncompliance with follow-up Addendum; Patient signed AGAINST MEDICAL ADVICE.
--- NOTE | 2018-11-28 20:42 | CON ---
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 Psychiatry was consulted on this patient with psychiatric history. I met with the patient at bedside and he is calm, cooperative, pleasant, and remembers me from our prior encounters. He is well oriented to circumstances, month, year, and location. The patient reports that he does have a history of depression and anxiety. Thus far, his mood function is fairly well, though he does have up and down moments. He is not acutely hopeless or suicidal or he is not psychotic. He is quite coherent, smiles and laughs appropriately, and shows an appropriate concern about his seizure disorder; however, does admit to not always taking his antiseizure medications because it causes him to be lightheaded and wobbly. The patient does report stressors including losing custody of son; however, right now, he actually is not homeless anymore. There have been no behavioral issues on the medical floor. While the patient is quite cooperative in discussing his history and medications and functioning, he is not willing to sign into the psychiatric unit for further care; however, he is interested in following up with outpatient referral to see this provider at [facility]. In this regard, this can work in as a disposition for him when he is medically stabilized. PAST PSYCHIATRIC HISTORY: He has a history of multiple psychiatric admissions, most recently in 02/2018 at [facility]. He was stabilized on Neurontin 600 mg t.i.d., Vistaril 50 mg q.i.d., Depakote 500 mg b.i.d., BuSpar 5 mg t.i.d., Wellbutrin 150 mg daily, Remeron 30 mg at bedtime p.r.n., and Seroquel 100 mg a.m. and at bedtime. Vital signs and labs were reviewed. Of note, the patient's toxicology indicate positive for marijuana and his alcohol level is 335. ASSESSMENT: Mood spectrum disorder; substance-induced mood disorder likely alcohol withdrawal, rule out major depression, moderate at this time, not severe as well as positive for anxiety. RELEVANT MEDICATIONS: Only include lorazepam 1 mg IV every 2 hours p.r.n. RECOMMENDATIONS: At this time, the patient is reluctant to start an antidepressant. He says he has taken a lot of them and they have not been beneficial. These include Zoloft, Lexapro, Vistaril, and Paxil. He says the only medication that really helped him was Xanax; however, this provider is not going to provide Xanax. I will, however, start Ativan 1 mg every 6 hours for possible alcohol withdrawal as the patient does have this history and his BAL does not match up with his story in which he only had a few drinks last night. The patient was educated about the importance of compliance with his to prevent further medical admissions and also educated about the dangerousness of not controlling a seizure disorder. The patient is not willing to sign in voluntarily, does not meet criteria for involuntary admission. This provider will sign off at this time. Please give him a referral for [facility]. Jay Trent MD
== END 2018-11-28 19:09 | disposition left against medical advice (07) ==
LOC: ED 22:30 → ERH 11-28 02:08 → 2RNO 11-28 03:21
PROVIDERS: ADMIT Internal Medicine; ATTEND Internal Medicine
DX: F10.239 Alcohol dependence with withdrawal, unspecified (principal); F10.229 Alcohol dependence with intoxication, unspecified; G40.909 Epilepsy, unspecified, not intractable, without status epilepticus; F12.90 Cannabis use, unspecified, uncomplicated; F19.94 Other psychoactive substance use, unspecified with psychoactive substance-induced mood disorder; F31.30 Bipolar disorder, current episode depressed, mild or moderate severity, unspecified; F41.8 Other specified anxiety disorders; I42.9 Cardiomyopathy, unspecified; I50.9 Heart failure, unspecified; F17.210 Nicotine dependence, cigarettes, uncomplicated; Z86.73 Personal history of transient ischemic attack (TIA), and cerebral infarction without residual deficits; Z91.14 Patient's other noncompliance with medication regimen; Z91.19 Patient's noncompliance with other medical treatment and regimen; Y90.7 Blood alcohol level of 200-239 mg/100 ml
CPT/HCPCS: 36415; 70450; 71045; 80053; 80177; 82550; 83615; 83735; 84484; 85025; 85027; 93005; 99285; G0378; G0480